=== PATIENT | female | born 1960 | race Caucasian/White ===

== ENCOUNTER 2016-10-01 09:49 | Emergency (ER) | payer BC ==
--- NOTE | 2016-10-01 12:07 | UC ---
Hand/Wrist HPI - HPI Summary HPI Summary: 55 yo female fell and injured her left hand yesterday right handed - History Of Current Complaint Chief Complaint: UCUpperExtremity Stated Complaint: HAND INJURY Time Seen by Provider: 10/01/16 11:57 Hx Obtained From: Patient Onset/Duration: Sudden Onset Severity Initially: Moderate Severity Currently: Mild Pain Intensity: 4 Pain Scale Used: 0-10 Numeric Character Of Pain: Aching Aggravating Factor(s): Movement Alleviating: Nothing Associated Signs And Symptoms: Positive: Swelling, Bruising Related History: Dominant Hand Right - Allergies/Home Medications Allergies/Adverse Reactions: Allergies Allergy/AdvReac Type Severity Reaction Status Date / Time STATINS Allergy MUSCLE Uncoded 10/01/16 10:48 TIGHTEN Home Medications: Home Medications Baclofen TAB* [Lioresal TAB*] 5 mg PO BID 10/01/16 [History Confirmed 10/01/16] Oxybutynin TAB* [Ditropan TAB*] 5 mg PO DAILY 10/01/16 [History Confirmed ] PMH/Surg Hx/FS Hx/Imm Hx Previously Healthy: Yes Endocrine History: Diabetes Cardiovascular History: Hypertension Neurological History: CVA - Surgical History Surgical History: Yes Surgery Procedure, Year, and Place: TOP TEETH EXTRACTION, [place]. 1979 & 1988 CSECTION X 2, [facility]. 1994 UMBILICAL HERNIA REPAIR, [facility]. 05/2015 LEFT LEG VARICOSE VEIN SURGERY, [facility] [place] - Social History Alcohol Use: None Substance Use Type: None Smoking Status (MU): Never Smoked Tobacco - Immunization History Most Recent Influenza Vaccination: Unknown Most Recent Tetanus Shot: Unknown Most Recent Pneumonia Vaccination: Never Review of Systems Constitutional: Negative Skin: Bruising Eyes: Negative ENT: Negative Respiratory: Negative Cardiovascular: Negative Gastrointestinal: Negative Genitourinary: Negative Motor: Negative Neurovascular: Negative Musculoskeletal: Negative Neurological: Negative Psychological: Negative All Other Systems Reviewed And Are Negative: Yes Physical Exam Triage Information Reviewed: Yes Appearance: Well-Appearing, No Pain Distress, Well-Nourished Vital Signs: Initial Vital Signs Temp 97.8 F 10/01/16 10:50 Pulse 74 10/01/16 10:50 Resp 16 10/01/16 10:50 BP 138/89 10/01/16 10:50 Pulse Ox 99 10/01/16 10:50 Eye Exam: Normal Procedures - Splinting Hand-Made Type: orthoglass Splint: 2" palmar splint Pre-Proc Neuro Vasc Exam: normal Post-Proc Neuro Vasc Exam: normal Hand/Wrist Course/Dx - Differential Dx/Diagnosis Provider Diagnoses: fracture base of left 4th/5th proximal phalangx ( nondisplaced) Discharge - Discharge Plan Condition: Stable Disposition: HOME Patient Education Materials: Finger Fracture (ED) Referrals: Andre Watts MD [Medical Doctor] - As Soon As Possible Additional Instructions: splint ice recheck with orthopedist
--- NOTE | 2016-10-01 12:40 | RAD ---
INDICATION: Left hand injury. TECHNIQUE: 4 views of the left hand were obtained. FINDINGS: The thumb and second finger are flexed in all views limiting the study. There are nondisplaced fractures through the medial corners of the bases of the proximal phalanges of the fourth and fifth fingers which appear to extend to the articular margins. IMPRESSION: NONDISPLACED INTRA-ARTICULAR FRACTURES AT THE BASES OF THE FOURTH AND FIFTH PROXIMAL PHALANGES.
[2016-10-01 13:18] VITALS: BP 125/72
== END 2016-10-01 13:09 | disposition home or self-care (01) ==
LOC: UCEAST 09:49
DX: S62.645A Nondisplaced fracture of proximal phalanx of left ring finger, initial encounter for closed fracture (principal); S62.647A Nondisplaced fracture of proximal phalanx of left little finger, initial encounter for closed fracture; W19.XXXA Unspecified fall, initial encounter; Y93.9 Activity, unspecified; Y92.9 Unspecified place or not applicable; Y99.9 Unspecified external cause status; E11.9 Type 2 diabetes mellitus without complications; I10 Essential (primary) hypertension; Z86.73 Personal history of transient ischemic attack (TIA), and cerebral infarction without residual deficits
CPT/HCPCS: 99212; G0463

== ENCOUNTER 2017-05-11 07:14 | Inpatient (IN) | payer BC ==
--- NOTE | 2017-04-30 20:27 | HP ---
HISTORY AND PHYSICAL: DATE OF ADMISSION/SURGERY: 05/11/17 SURGEON: Genet Hidalgo MD * (DICTATED BY ADITYA STAFFORD) PROCEDURE: Left total knee arthroplasty. CHIEF COMPLAINT: Left knee pain. HISTORY OF PRESENT ILLNESS: Sierra is a 56-year-old female with continued complaints of left knee pain. She has failed conservative management and elected to proceed with a left total knee arthroplasty which is scheduled for with Dr. Hidalgo. PAST MEDICAL HISTORY: Diabetes, high cholesterol, hypertension, depression, vitamin D deficiency, and stroke with residual left-sided weakness. PAST SURGICAL HISTORY: Hernia repair, x2, varicose vein surgery in the bilateral lower extremities. CURRENT MEDICATIONS: 1. Plavix 75 mg daily. 2. Aspirin 81 mg daily. 3. Oxybutynin 5 mg daily. 4. Multivitamin. 5. Citalopram. 6. Hydrobromide 20 mg daily. 7. Vitamin D. 8. CoQ10. 9. Magnesium. 10. Losartan potassium 100 mg daily. 11. Amlodipine 5 mg daily. 12. Metoprolol 100 mg daily. 13. Metformin 1000 mg. ALLERGIES: STATINS. FAMILY HISTORY: COPD, congestive heart failure, and diabetes. SOCIAL HISTORY: This is a 56-year-old female. She lives alone. She does not smoke, use drugs or alcohol. REVIEW OF SYSTEMS: A complete 14-point review of systems was reviewed with the patient, was positive for diabetes and history of stroke. She denies history of DVT, PE, hepatitis C, HIV, or anesthesia problems. PHYSICAL EXAMINATION GENERAL: She is well developed, well nourished, in no acute distress. VITAL SIGNS: She stands 5 feet 3 inches tall, weighs 245 pounds. Her blood pressure is 136/84. Her heart rate is 84. HEENT: Normocephalic, atraumatic. NECK: Supple. No palpable lymph nodes. PULMONARY: The lungs are clear to auscultation bilaterally. CARDIO: Regular rate and rhythm. Strong S1 and S2. ABDOMEN: Soft, nontender, nondistended. NEUROLOGIC: She is alert and oriented x3. Cranial nerves II through XII are intact. MUSCULOSKELETAL: Left lower extremity, the skin is intact. There are no open wounds or abrasions. Some moderate joint effusion of the left knee. Walks with antalgic type gait, favoring his left knee. Range of motion 10 to 120 degrees of flexion with varus deformity of 15 degrees. 2+ dorsalis pedis pulses. Intact sensation. The lower extremity muscle group strengths are intact at 5/5. ASSESSMENT AND PLAN: Sierra is a 56-year-old female with complaints of left knee pain secondary to end-stage osteoarthritis. She has failed conservative management and elected to proceed with a left total knee arthroplasty, which is scheduled for 05/11/[address] Hidalgo discussed the risks and benefits of the surgery at today's visit and all of her questions were answered. She was instructed to stop her aspirin and Plavix 7 days prior to the surgery. Postoperatively, she will be placed on Lovenox in the hospital. She will restart her Plavix at the time of discharge for DVT prophylaxis. A prescription for Percocet was sent to her pharmacy at today's visit. She will follow up with Dr. Hidalgo in 2 weeks after the surgery. ADITYA STAFFORD [id number]/CPS #: [id number] MTDD
[~2017-05-11 07:14] MED LIST: Buffered Lidocaine 0.9% SYRIN* 5 ML/SYR SYRINGE INTRADERM ONE
--- OUTSIDE RECORDS SUMMARY | 2017-05-11 07:19 | XMS REPORT ---
:1960 External Reference #:[id number] Author Organization [employer] Address [address] [address] Phone [phone] Care Team Providers Name Role Phone Jennifer Morejon PROJECT ADMIN Primary Care Physician Unavailable Payers Type Date Identification Numbers Payment Provider Subscriber Commercial Policy Number: [id number] [employer]ets Sierra Redi Group Name: Exchange Product PO Box PayID: [id number] [address]an [address] Medigap Part B Effective: 2014 Policy Number: BS Facets Sierra Reid [id number] Expires: 2015 Group Number: [id number] PO Box PayID: [id number] ED[address] Mahan [address] Problems Date Description Provider Status Onset: 01/29/2017 Right bundle branch block Josiane Velazquez M.D. Active Onset: 01/29/2017 Electrocardiogram abnormal Josiane Velazquez M.D. Active Onset: 01/29/2017 Preoperative cardiovascular examination Josiane Velazquez M.D. Active Onset: 11/27/2016 Localized, primary osteoarthritis Genet Hidalgo M.D. 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 Allergies, Adverse Reactions, Alerts Date Description Reaction Status Severity Comments 10/07/2016 Statin muscles tighten active Medications Medication Date Status Form Strength Qnty SIG Indications Ordering Provider Aspirin Ec Active Tablets DR 81mg 30tabs 1 by Andre 017 mouth MD Stefanie every day Losartan Active Tablets 100mg 1 by Unknown Potassium 000 mouth every day Amlodipine Active Tablets 5mg 1 by Unknown Besylate 000 mouth every day Clopidogrel Active Tablets 75mg 1 by Unknown Bisulfate 000 mouth every day Citalopram Active Tablets 20mg 1 by Unknown Hydrobromide 000 mouth every day Metformin HCL Active Tablets 1000mg 1 by Unknown 000 mouth once a day hs Oxybutynin Active Tablets 5mg 1 by Unknown Chloride 000 mouth every day Baclofen Active Tablets 10mg take 1 Unknown 000 tab every 12 hours Vitamin D Active Capsules 1000Unit 1 by Unknown (Cholecalcifero 000 mouth l) every day in summer and two in winter Co-Enzyme Q-10 Active Capsules 100mg 1 by Unknown 000 mouth every day Multi Vitamin Active Tablets 1 by Unknown 000 mouth every day Magnesium Active Tablets 400mg 1 by Unknown 000 mouth daily Metoprolol Active Tablets ER 100mg 1 by Unknown Succinate ER 000 24HR mouth every day Metoprolol Hx Tablets 100mg take 1 Unknown Tartrate 000 - tablet by mouth 017 twice a day Medications Administered in Office Medication Date Status Form Strength Qnty SIG Indications Ordering Provider Technetium TC Administered Injection Ica Nuclear 99M 017 Schedule Tetrofosmin, Per Unit Dose Up To 40 Millicuries Inj, Administered Injection Jay S. Regadenoson, 017 Yee, DO 0.1 MG FACC Technetium TC Administered Injection Jay S. 99M 017 Yee, DO Tetrofosmin, FACC Per Unit Dose Up To 40 Millicuries Vital Signs Date Vital Result Comment 04/28/2017 Height 63 inches 5'3" Weight 245.00 lb Heart Rate 84 /min BP Systolic 136 mmHg BP Diastolic 84 mmHg BMI (Body Mass Index) 43.4 kg/m2 03/11/2017 Height 63 inches 5'3" Weight 244.00 lb w/ shoes Heart Rate 80 /min reg BP Systolic Sitting 124 mmHg Rue, lg cuff BP Diastolic Sitting 84 mmHg Rue, lg cuff BP Systolic Standing 120 mmHg Rue BP Diastolic Standing 84 mmHg Rue Respiratory Rate 16 /min BMI (Body Mass Index) 43.2 kg/m2 Ejection Fraction 55-60% as of 01/14/17 echo 01/29/2017 Height 63 inches 5'3" Weight 242.00 lb w/ shoes Heart Rate 78 /min reg BP Systolic 126 mmHg Rue, lg cuff BP Diastolic 88 mmHg Rue, lg cuff BP Systolic Sitting 128 mmHg Lue, lg cuff BP Diastolic Sitting 78 mmHg Lue, lg cuff BP Systolic Standing 122 mmHg Lue BP Diastolic Standing 84 mmHg Lue Respiratory Rate 16 /min BMI (Body Mass Index) 42.9 kg/m2 Ejection Fraction 55-60% as of 01/14/17 echo 01/01/2017 Height 63 inches 5'3" Weight 241.00 lb Heart Rate 79 /min BP Systolic 123 mmHg BP Diastolic 67 mmHg Body Temperature 98.0 F BMI (Body Mass Index) 42.7 kg/m2 11/27/2016 Height 63 inches 5'3" Weight 240.00 lb Heart Rate 60 /min BP Systolic 115 mmHg BP Diastolic 68 mmHg Respiratory Rate 15 /min Body Temperature 97.4 F Pain Level 5 BMI (Body Mass Index) 42.5 kg/m2 11/04/2016 Height 63 inches 5'3" Weight 240.00 lb Heart Rate 76 /min BP Systolic 128 mmHg BP Diastolic 78 mmHg Respiratory Rate 18 /min Body Temperature 97.9 F Pain Level 0 BMI (Body Mass Index) 42.5 kg/m2 10/07/2016 Height 63 inches 5'3" Weight 240.00 lb BP Systolic 122 mmHg BP Diastolic 70 mmHg Body Temperature 97.2 F Pain Level 0 BMI (Body Mass Index) 42.5 kg/m2 Results Test Date Test Result H/L Range Note CBC No Diff 04/28/2017 White Blood Count 6.9 10^3/uL 3.5-10.8 Red Blood Count 4.42 10^6/uL 4.0-5.4 Hemoglobin 13.4 g/dL 12.0-16.0 Hematocrit 39 % 35-47 Mean Corpuscular Volume 88 fL 80-97 Mean Corpuscular Hemoglobin 30 pg 27-31 Mean Corpuscular HGB Conc 34 g/dL 31-36 Red Cell Distribution Width 14 % 10.5-15 Platelet Count 253 10^3/uL 150-450 Mean Platelet Volume 8 um3 7.4-10.4 Urinalysis Profile 04/28/2017 Urine Color Yellow Urine Appearance Cloudy Urine Specific Novi 1.017 1.010-1.030 Urine pH 7.0 5-9 Urine Urobilinogen Negative Negative Urine Ketones Negative Negative Urine Protein Negative Negative Urine Leukocytes Trace Negative Urine Blood Negative Negative Urine Nitrite Negative Negative Urine Bilirubin Negative Negative Urine Glucose Negative Negative Urine White Blood Cell 1+(6-10/hpf) Absent Urine Red Blood Cell Trace(0-2/hpf) Absent Urine Bacteria Absent Absent Urine Squamous Epithelial Cell Present Absent Comp Metabolic Panel 04/28/2017 Sodium 137 mmol/L 133-145 Potassium 4.2 mmol/L 3.5-5.0 Chloride 101 mmol/L 101-111 Co2 Carbon Dioxide 29 mmol/L 22-32 Anion Gap 7 mmol/L 2-11 Glucose 88 mg/dL 70-100 Blood Urea Nitrogen 13 mg/dL 6-24 Creatinine 0.63 mg/dL 0.51-0.95 BUN/Creatinine Ratio 20.6 High 8-20 Calcium 9.8 mg/dL 8.6-10.3 Total Protein 7.6 g/dL 6.4-8.9 Albumin 4.3 g/dL 3.2-5.2 Globulin 3.3 g/dL 2-4 Albumin/Globulin Ratio 1.3 1-3 Total Bilirubin 0.40 mg/dL 0.2-1.0 Alkaline Phosphatase 69 U/L 34-104 Alt 25 U/L 7-52 Ast 21 U/L 13-39 Egfr Non- 97.1 >60 Egfr 124.8 >60 1 Inr/Protime 04/28/2017 Inr 0.88 0.77-1.02 Laboratory test finding 04/28/2017 Partial Thrombo Time 32.0 seconds 26.0 -36.3 PTT Type & Screen 04/28/2017 Patient Blood Type O Negative Antibody Screen NEGATIVE Urine Culture And 04/28/2017 Urine Culture SEE RESULT BELOW 2 Sensitivities Urine Culture And 01/01/2017 Urine Culture SEE RESULT BELOW 3, 4 Sensitivities Type & Screen 01/01/2017 Patient Blood Type O Negative 3 Antibody Screen NEGATIVE 3 Comp Metabolic Panel 01/01/2017 Sodium 138 mmol/L 133-145 3 Potassium 4.2 mmol/L 3.5-5.0 3 Chloride 100 mmol/L Low 101-111 3 Co2 Carbon Dioxide 28 mmol/L 22-32 3 Anion Gap 10 mmol/L 2-11 3 Glucose 83 mg/dL 70-100 3 Blood Urea Nitrogen 15 mg/dL 6-24 3 Creatinine 0.62 mg/dL 0.51-0.95 3 BUN/Creatinine Ratio 24.2 High 8-20 3 Calcium 9.5 mg/dL 8.6-10.3 3 Total Protein 7.5 g/dL 6.4-8.9 3 Albumin 4.3 g/dL 3.2-5.2 3 Globulin 3.2 g/dL 2-4 3 Albumin/Globulin Ratio 1.3 1-3 3 Total Bilirubin 0.40 mg/dL 0.2-1.0 3 Alkaline Phosphatase 67 U/L 34-104 3 Alt 18 U/L 7-52 3 Ast 16 U/L 13-39 3 Egfr Non- 98.9 >60 3 Egfr 127.1 >60 3, 5 Urinalysis Profile 01/01/2017 Urine Color Yellow 3 Urine Appearance Cloudy 3 Urine Specific Novi 1.018 1.010-1.030 3 Urine pH 7.0 5-9 3 Urine Urobilinogen Negative Negative 3 Urine Ketones Negative Negative 3 Urine Protein Negative Negative 3 Urine Leukocytes Negative Negative 3 Urine Blood Negative Negative 3 Urine Nitrite Negative Negative 3 Urine Bilirubin Negative Negative 3 Urine Glucose Negative Negative 3 CBC No Diff 01/01/2017 White Blood Count 6.9 10^3/uL 3.5-10.8 3 Red Blood Count 4.49 10^6/uL 4.0-5.4 3 Hemoglobin 13.3 g/dL 12.0-16.0 3 Hematocrit 40 % 35-47 3 Mean Corpuscular Volume 89 fL 80-97 3 Mean Corpuscular Hemoglobin 30 pg 27-31 3 Mean Corpuscular HGB Conc 33 g/dL 31-36 3 Red Cell Distribution Width 14 % 10.5-15 3 Platelet Count 244 10^3/uL 150-450 3 Mean Platelet Volume 8 um3 7.4-10.4 3 Laboratory test finding 01/01/2017 Partial Thrombo 30.2 seconds 26.0- 36.3 3, 6 Time PTT Inr/Protime 01/01/2017 Inr 0.87 Low 0.89-1.11 3 1 Because ethnic data is not always readily available, this report includes an eGFR for both -Americans and non- Americans. The National Kidney Disease Education Program (NKDEP) does not endorse the use of the MDRD equation for patients that are not between the ages of 18 and 70, are , have extremes of body size, muscle mass, or nutritional status, or are non- or non-. According to the National Kidney Foundation, irrespective of diagnosis, the stage of the disease is based on the level of kidney function: Stage Description GFR(mL/min/1.73 m(2)) 1 Kidney damage with normal or decreased GFR 90 2 Kidney damage with mild decrease in GFR 60-89 3 Moderate decrease in GFR 30-59 4 Severe decrease in GFR 15-29 5 Kidney failure <15 (or dialysis) 2 SEE RESULT BELOW Name: SIERRA REID : [address]: Genet Hidalgo MD Acct: [id number] Unit: [id number] AGE: 56 Location: [facility] Re04/28/17 SEX: F Status: REG REF SPEC: [id number] SANDRA: 04/28/17-[address] [facility] [address]: Genet Hidalgo MD REQ: [id number] RECD: 04/28/17 STATUS: COMP _ SOURCE: URINE SPDESC: ORDERED: Urine Culture QUERIES: Urine Source: Clean Catch Procedure Result Reported Site Urine Culture Final 04/29/17- 0940 ML No growth of clinically significant organisms * ML - MAIN LAB ([facility]) . END OF REPORT * ML=Testing performed at Main Lab DEPARTMENT OF PATHOLOGY, [address] [place] [address] Tono Colvin M.D. Director [facility] # [id number] 3 01/07 4 SEE RESULT BELOW Name: SIERRA REID : [address]: Genet Hidalgo MD Acct: [id number] Unit: [id number] AGE: 56 Location: [facility] Re01/01/17 SEX: F Status: REG REF SPEC: [id number] SANDRA: 01/01/[address] [facility] [address]: Genet Hidalgo MD REQ: [id number] RECD: 01/01/17 STATUS: COMP OTHR DR: Jennifer Mooney Ma, MD _ SOURCE: URINE SPDESC: ORDERED: Urine Culture COMMENTS: JULISSA 01/07 QUERIES: Urine Source: Clean Catch Procedure Result Reported Site Urine Culture Final 01/02/17- 1236 ML No growth of clinically significant organisms * ML - MAIN LAB ([facility]) . END OF REPORT * ML=Testing performed at Main Lab DEPARTMENT OF PATHOLOGY, [address] [place] [address] Tono Colvin M.D. Director [facility] # [id number] 5 Because ethnic data is not always readily available, this report includes an eGFR for both -Americans and non- Americans. The National Kidney Disease Education Program (NKDEP) does not endorse the use of the MDRD equation for patients that are not between the ages of 18 and 70, are , have extremes of body size, muscle mass, or nutritional status, or are non- or non-. According to the National Kidney Foundation, irrespective of diagnosis, the stage of the disease is based on the level of kidney function: Stage Description GFR(mL/min/1.73 m(2)) 1 Kidney damage with normal or decreased GFR 90 2 Kidney damage with mild decrease in GFR 60-89 3 Moderate decrease in GFR 30-59 4 Severe decrease in GFR 15-29 5 Kidney failure <15 (or dialysis) 6 AA 01/07 Procedures Date CPT Code Description Status 02/09/2017 81461 Stress Test Completed 02/09/2017 95733 Myocardial Perfusion Imaging Tomographic (Spect) Completed Multiple Studies 01/29/2017 92366 EKG Tracing & Interpretation Completed 01/14/2017 76605 ECHO Transthoracic, Real-Time 2D With Doppler And Color Completed Flow 01/14/2017 73803 ECHO Transthoracic, Real-Time 2D With Doppler And Color Completed Flow 01/01/2017 63856 EKG, Interpretation Only Completed 12/04/2014 63696 Color Flow Doppler/Interp & Reprt Completed 12/04/2014 58403 Pulse Wave/Continuous-Interp.RPT Completed 12/04/2014 82915 Echocardiography, Transesophageal, Real Time W/Image 2D Completed W/W/O M-M 12/04/2014 15339 ECHO Transthorasic Realtime 2D W Doppler & Color Completed Flow Hosp Encounters Type Date Location Provider CPT E/M Dx Office Visit 03/11/2017 [facility] Josiane Velazquez M.D. 54627 Z01.810 4:00p Nuclear Medicine Pet Ct Technologist I45.19 I63.9 M17.0 E11.8 E78.5 I10 E66.9 Office Visit 01/29/2017 2:00p [facility] Josiane Velazquez M.D. [address]01.[address] Technologist R94.31 I63.9 R01.1 I45.10 M17.11 Office Visit 11/27/2016 10:00a [facility] Genet Hidalgo M.D. 79433 M25.562 Jose M25.561 M25.461 M25.462 M17.0 Office Visit 11/04/2016 2:00p [place] [address] S62.645D Of C.Joan S62.647D Office Visit 10/07/2016 1:15p [place] [address] S62.645A Of C.M.ALuis Antonio S62.647A Office Visit 12/04/2014 10:36a [facility] Marni Sosa, 34955 I63.9 M.D. Office Visit 12/04/2014 3:51p [facility], Shavonne Otero, 71779 434.91 Hospitalists M.DLuis Antonio 250.00 401.9 272.4 Office Visit 12/03/2014 10:35a [place] [address] G45.9 Office Visit 12/03/2014 3:50p [facility], Morteza Chávez, 86389 435.9 Hospitalists N.P. 250.00 401.9 Plan of Care Future Appointment(s):05/26/2017 9:45 am - Genet Hidalgo M.D. at [facility]05/11/2017 10:00 am - ADITYA Gonzales at [facility]05/11/2017 10:00 am - Joao Rosano, PA-C at [facility]05/11/2017 10:00 am - ADITYA Carmona at [facility].05/11/2017 10:00 am - Genet Hidalgo M.D. at [facility]04/28/2017 - Genet Hidalgo M.D.M17.12 Unilateral primary osteoarthritis, left kneeFollow up:Follow up: 10-14 days whjresQ47.11 Unilateral primary osteoarthritis, right kneeM25.562 Pain in left kneeM25.561 Pain in right kneeM25.461 Effusion, right kneeM25.462 Effusion, left knee
--- OUTSIDE RECORDS SUMMARY | 2017-05-11 07:20 | XMS REPORT ---
:1960 External Reference #:[id number] Author Organization 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 Unavailable Payers Type Date Identification Numbers Payment Provider Subscriber Commercial Effective: Policy Number: BCBS Essential Plan Sierra Sinclair 2016 [id number] PayID: [id number] [address] [address] [place] [address] Problems Date Description Provider Status Onset: 09/03/2013 Morbid obesity Christine Hernandez MD Active Onset: 09/03/2013 Essential hypertension Christine Hernandez MD Active Onset: 09/03/2013 Diabetes mellitus Christine Hernandez MD Active Onset: 09/03/2013 Pure hypercholesterolemia Christine Hernandez MD Active Onset: 09/03/2013 Osteoarthritis of knee Christine Hernandez MD Active Onset: 09/03/2013 Sciatica Christine Hernandez MD Active Onset: 09/20/2013 Gout Christine Hernandez MD Active Onset: 09/27/2013 Vitamin D deficiency Christine Hernandez MD Active Onset: 01/08/2015 Major depressive disorder Christine Hernandez MD Active Onset: 01/08/2015 Restless legs Christine Hernandez MD Active Onset: 02/27/2015 History of cerebrovascular accident Christine Hernandez MD Active Onset: 05/07/2016 Benign essential hypertension Active Family History Date Family Member(s) Problem(s) Comments Father COPD Father Congestive Heart Failure Mother Good Health First Brother Diabetes, Adult First Sister Good Health Paternal Grandfather due to COPD () Paternal Grandfather due to Congestive Heart Failure () Paternal Grandfather due to Suicide () Paternal Grandmother due to Old Age () Maternal Grandfather due to Diabetes () Maternal Grandmother due to DM () Maternal Grandmother due to Heart Disease () Social History Type Date Description Comments Marital Status Single 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 ETOH Use Rarely consumes wine Smoking Patient has never smoked Recreational Drug Use Denies Drug Use Daily Caffeine Consumes on average 2 cups of coffee per day Exercise Type/Frequency Diff Exercisinf D/T Knee Issues Sun Exposure minimum amount of sun exposure Sun Exposure Uses sunscreen Seat Belt/Car Seat always uses seat belt Recent Travel There has not been recent travel abroad Personal Habits Text Allergies, Adverse Reactions, Alerts Date Description Reaction Status Severity Comments 08/28/2013 NKDA active Medications Medication Date Status Form Strength Qnty SIG Indications Ordering Provider Bedside 03/24/ Active S/p stroke. I69.854 Jean-Pierre, Commode 2018 hemiplegia, Jennifer knee Susan RN MS replacement, [employer] severe osteoarthritis Clopidogrel 02/09/ Active Tablets 75mg 90tabs Take One Tablet I63.9 Jean-Pierre, Bisulfate 2017 By Mouth Every Jennifer Davis RN MS [employer] Z86.73 Oxybutynin 01/09/2016 Active Tablets 5mg 90tabs take one N39.3 Jean-Pierre, Chloride tablet by Jennifer Davis, mouth RN MS [employer] every day Metformin HCL 09/20/2015 Active Tablets 1000mg 180tabs Take E11.9 Jean-Pierre, One-Half Jennifer Davis, Tablet By RN MS [employer] Mouth Twice A Day Citalopram 05/31/2015 Active Tablets 20mg 90tabs Take One F33.0 Jean-Pierre, Hydrobromide Tablet By Jennifer Davis, Mouth RN MS [employer] Every Day F32.9 Losartan 05/31/2015 Active Tablets 100mg 90tabs Take One I10 Jean-Pierre, Potassium Tablet By Jennifer Davis, Mouth RN MS [employer] Every Day Amlodipine 05/31/2015 Active Tablets 5mg 90tabs Take One I10 Jean-Pierre, Besylate Tablet By Jennifer Davis Mouth RN MS [employer] Every Day Aspir-81 12/06/[address] 81mg 1 by mouth Z86.73 Christine Hernandez every day MD Salome I63.9 Vitamin D 09/27/2013 Active Tablets 1000Unit 90tabs 1 by mouth E55.9 Jean-Pierre, everyday in summer and C, RN MS daily in [facility] winter Metoprolol 09/27/2013 Active Tablets 100mg 90tabs Take One I10 Jean-Pierre, Succinate ER ER 24HR Tablet By [facility] Mouth Every Susan, RN MS Day [facility] Ultra Co Q10 Active Unknown Supplement Baclofen Active Tablets 10mg 1 by mouth I69.85 Unknown twice a day [address] Littlejohn 400 Active Tablets 400(241.3m one tab bid Unknown g) mg for headache prevention Glucosamine 01/09/2016 - Hx Tablets OTC 2 by mouth [place], Chondroitin 11/11/2016 every [facility] Advanced OTC morning C, RN MS [facility] Ropinirole HCL 02/04/2015 - Hx Tablets 0.5mg 90tabs 1 qHS 1-3 G25.81 David, 09/20/2015 hrs before [facility] bedtime prlois Mcmahon MD Physical 01/22/2015 - Hx Dx: strokes, David, Therapy 05/31/2015 paresis Christine Mcmahon MD Hydrocodone-Ac 01/17/2015 - Hx Tablets 5-325mg 30tabs 1-2 by mouth David etaminophen 05/31/2015 four times a Christine day as MD Salome needed Livalo 01/15/2015 - Hx Tablets 1mg 30tabs 1 tabs every Jean-Pierre, 09/20/2015 day In [facility] Evening Susan, RN MS [facility] Citalopram 01/08/2015 - Hx Tablets 10mg 90tabs 1 everyday F33.0 David Hydrobromide 05/31/2015 Christine Mcmahon MD F32.9 Plavix 01/08/2015 - Hx Tablets 75mg 90tabs 1 by mouth I63.9 Jean-Pierre Jennifer 02/09/2017 every day Susan RN MS [facility] Z86.73 Ropinirole HCL 01/08/2015 - Hx Tablets 0.25mg 180tabs 2 every night David, 02/04/2015 at bedtime Christine Mcmahon MD Zetia 01/08/2015 - Hx Tablets 10mg 90tabs take 1 tablet E78. David, 02/27/2015 by mouth every 0 Christine night at MD Salome bedtime Sick Note 12/06/2014 - Hx SHould be off David, 01/08/2015 Dec 10 to Dec Christine 2014 MD Salome inclusively Pravastatin 12/06/2014 - Hx Tablets 20mg 90tabs 1/2- 1 every David, Sodium 01/08/2015 night at [facility] bedtime - 1st MD Salome choice Crestor 12/06/2014 - Hx Tablets 5mg 90tabs take 1/2 tablet E78. David, 05/31/2015 by mouth at 0 Christine bedtime may MD Salome increase to 1 tablet at bedtime as tolerated Phentermine HCL 01/30/2014 - Hx Tablets 37.5mg 30tabs 1 everyday 278. David, 12/10/2014 00 Christine Mcmahon MD 278.01 Metformin HCL 10/31/2013 - Hx Tablets 1000mg 180tabs 1/2 by E11.9 Christine Hernandez 02/27/2015 mouth twice MD Salome a day Losartan 09/27/2013 - Hx Tablets 50mg 180tabs 1 -2 by I10 Christine Hernandez Potassium 05/31/2015 mouth every MD Salome day M10.9 Metformin HCL 09/27/2013 - Hx Tablets ER 1000mg 180tabs start as 1/2 250.00 David ER (Osm) 10/31/2013 24HR tab qday, Christine then increase MD Salome by 1/2 tab qweek up to 2 tabs qday as tolerated Prednisone 09/20/2013 - Hx Tablets 10mg 30tabs 3 tab bid on M10.9 David, 05/31/2015 day 1, then 3 Christine tabs daily MD Salome until gout flare resolves + extra 2 days To fill only with gout flare pt will call Lisinopril 08/28/2013 - Hx Tablets 10mg 90tabs 1 by mouth David, 09/27/2013 every day Christine Mcmahon MD Immunizations CPT Code Status Date Vaccine Lot # [id number] Given 09/07/2012 Tdap (Adacel) Ages 7 And Above Only [id number] Refused 03/24/2017 Influenza Vac, 3 Yrs & Older, Quadrivalent, [place] Use [id number] Refused 01/09/2016 Influenza Vac, 3 Yrs & Older, Quadrivalent, Split, Im Use Vital Signs Date Vital Result Comment 04/26/2017 Weight 243.00 lb Heart Rate 76 /min BP Systolic 132 mmHg BP Diastolic 80 mmHg Height 63 inches 5'3" BMI (Body Mass Index) 43.0 kg/m2 Urine Dipstick - Blood NEGATIVE Urine Dipstick - Protein NEGATIVE Urine Dipstick - Glucose NEGATIVE Urine Dipstick - Leukocytes 1+ 03/24/2017 Weight 244.25 lb Heart Rate 68 /min BP Systolic 128 mmHg BP Diastolic 82 mmHg Height 63 inches 5'3" BMI (Body Mass Index) 43.3 kg/m2 11/11/2016 Weight 240.50 lb Heart Rate 74 /min BP Systolic 137 mmHg BP Diastolic 82 mmHg Height 63 inches 5'3" BMI (Body Mass Index) 42.6 kg/m2 05/07/2016 Weight 245.25 lb Heart Rate 75 /min BP Systolic 128 mmHg BP Diastolic 82 mmHg Height 63 inches 5'3" BMI (Body Mass Index) 43.4 kg/m2 01/09/2016 Weight 244.12 lb Heart Rate 73 /min BP Systolic 129 mmHg BP Diastolic 80 mmHg Height 63 inches 5'3" BMI (Body Mass Index) 43.2 kg/m2 09/20/2015 Weight 238.50 lb Heart Rate 74 /min BP Systolic 127 mmHg BP Diastolic 81 mmHg Height 63 inches 5'3" BMI (Body Mass Index) 42.2 kg/m2 05/31/2015 Weight 231.25 lb BP Systolic 169 mmHg BP Diastolic 91 mmHg BP Systolic Recheck 163 mmHg BP Diastolic Recheck 97 mmHg Height 63 inches 5'3" BMI (Body Mass Index) 41.0 kg/m2 02/27/2015 Weight 210.00 lb Heart Rate 77 /min BP Systolic 143 mmHg BP Diastolic 85 mmHg Height 63 inches 5'3" BMI (Body Mass Index) 37.2 kg/m2 01/08/2015 Weight 200.00 lb Heart Rate 74 /min BP Systolic 160 mmHg BP Diastolic 88 mmHg BP Systolic Recheck 148 mmHg BP Diastolic Recheck 91 mmHg Height 63 inches 5'3" BMI (Body Mass Index) 35.4 kg/m2 12/06/2014 Weight 202.38 lb Heart Rate 79 /min BP Systolic 146 mmHg BP Diastolic 93 mmHg BP Systolic Recheck 150 mmHg BP Diastolic Recheck 94 mmHg Height 63 inches 5'3" BMI (Body Mass Index) 35.8 kg/m2 11/28/2014 Weight 206.50 lb Heart Rate 79 /min BP Systolic 135 mmHg BP Diastolic 79 mmHg Height 63 inches 5'3" BMI (Body Mass Index) 36.6 kg/m2 08/14/2014 Weight 214.00 lb Heart Rate 76 /min BP Systolic 137 mmHg BP Diastolic 80 mmHg Height 63 inches 5'3" BMI (Body Mass Index) 37.9 kg/m2 05/15/2014 Weight 223.50 lb Heart Rate 85 /min BP Systolic 143 mmHg BP Diastolic 83 mmHg BP Systolic Recheck 125 mmHg BP Diastolic Recheck 79 mmHg Height 63 inches 5'3" BMI (Body Mass Index) 39.6 kg/m2 01/30/2014 Weight 248.00 lb Heart Rate 80 /min BP Systolic 181 mmHg LEFT arm BP Diastolic 98 mmHg LEFT arm BP Systolic Recheck 178 mmHg RIGHT arm BP Diastolic Recheck 102 mmHg RIGHT arm Height 63 inches 5'3" BMI (Body Mass Index) 43.9 kg/m2 10/31/2013 Weight 249.00 lb Heart Rate 84 /min BP Systolic 176 mmHg BP Diastolic 100 mmHg Height 63 inches 5'3" BMI (Body Mass Index) 44.1 kg/m2 09/26/2013 Weight 248.00 lb Heart Rate 99 /min BP Systolic 155 mmHg BP Diastolic 91 mmHg BP Systolic Recheck 157 mmHg BP Diastolic Recheck 90 mmHg Height 64.5 inches 5'4.50" BMI (Body Mass Index) 41.9 kg/m2 09/19/2013 Weight 250.00 lb Heart Rate 109 /min BP Systolic 156 mmHg LEFT BP Diastolic 92 mmHg LEFT BP Systolic Recheck 173 mmHg RIGHT BP Diastolic Recheck 97 mmHg RIGHT Height 64.5 inches 5'4.50" BMI (Body Mass Index) 42.2 kg/m2 08/28/2013 Weight 253.00 lb Heart Rate 95 /min BP Systolic 189 mmHg RIGHT BP Diastolic 116 mmHg RIGHT BP Systolic Recheck 191 mmHg LEFT BP Diastolic Recheck 112 mmHg LEFT Height 64.5 inches 5'4.50" BMI (Body Mass Index) 42.8 kg/m2 Results Test Date Test Result H/L Range Note Hemoglobin A1c 03/24/2017 Hemoglobin A1c 6.5 % High 4.1-5.9 Estimated Average Glucose Calc 140 mg/dL 71-140 Lipid 03/24/2017 Cholesterol 229 mg/dL High 50-199 Triglycerides 216 mg/dL High 30-200 HDL 42 mg/dL 35-85 1 Chol/ HDL Ratio 5.5 ratio 3.7-5.6 VLDL 43 mg/dL High 2-29 LDL (Calc) 144 mg/dL High 20-99 2 Comprehensive Met Panel-[facility] 03/24/2017 Sodium 142 mmol/L 135-146 3 Potassium 3.9 mmol/L 3.5-5.2 Chloride# 101 mmol/L 97-110 4 Carbon Dioxide 28 mmol/L 24-34 Glucose 85 mg/dL 70-105 Creatinine 0.7 mg/dL 0.5-1.4 Calcium 10.0 mg/dL 8.5-10.2 Total Protein 7.6 g/dL 6.0-8.0 Albumin 4.6 g/dL 3.6-4.9 Globulin 3.0 g/dL 2.0-3.5 A/G Ratio 1.5 Ratio 1.0-2.2 Total Bilirubin 0.6 mg/dL 0.1-1.3 Alkaline Phosphatase 70 U/L 24-140 Alt 28 U/L 3-42 Ast 26 U/L 8- Lucille Egfr >60 >60 5 Non Lucille Egfr >60 >60 6 Anion Gap 13 mmol/L 7-16 7 BUN 11 mg/dL 6-26 Laboratory test 03/24/2017 Microalbumin, Random 10.8 ug/ml 0.0-20.0 finding Urine Hemoglobin A1c 11/11/2016 Hemoglobin A1c 6.6 % High 4.1-5.9 Estimated Average Glucose Calc 143 High 71-140 Laboratory test finding 11/11/2016 Vit D25oh 45 ng/mL 31-100 Comprehensive Met Panel-[facility] 11/11/2016 Sodium 139 mmol/L 135-146 8 Potassium 4.3 mmol/L 3.5-5.2 Chloride# 103 mmol/L 97-110 9 Carbon Dioxide 27 mmol/L 24-34 Glucose 82 mg/dL 70-105 BUN 11 mg/dL 6-26 Creatinine 0.6 mg/dL 0.5-1.4 Calcium 9.7 mg/dL 8.5-10.2 Total Protein 7.3 g/dL 6.0-8.0 Albumin 4.3 g/dL 3.6-4.9 Globulin 3.0 g/dL 2.0-3.5 A/G Ratio 1.4 Ratio 1.0-2.2 Total Bilirubin 0.6 mg/dL 0.1-1.3 Alkaline Phosphatase 70 U/L 24-140 Alt 19 U/L 3-42 Ast 18 U/L 8-42 Lucille Egfr >60 >60 10 Non Lucille Egfr >60 >60 11 Anion Gap 9 mmol/L 7-16 12 Lipid 11/11/2016 Cholesterol 212 mg/dL High 50-199 Triglycerides 205 mg/dL High 30-200 HDL 37 mg/dL 35-85 13 Chol/ HDL Ratio 5.7 ratio High 3.7-5.6 VLDL 41 mg/dL High 2-29 LDL (Calc) 134 mg/dL High 20-99 14 Laboratory test finding 05/07/2016 Hemoglobin A1c 6.9 % High 4.1-5.9 15 Comprehensive Metabolic (CMP) 05/07/2016 Sodium 140 mmol/L 134-142 15 Potassium 4.5 mmol/L 3.5-5.2 15 Chloride 103 mmol/L 97-109 15 Carbon Dioxide 27 mmol/L 24-34 15 Glucose 95 mg/dL 70-105 15 BUN 12 mg/dL 6-26 15 Creatinine 0.6 mg/dL 0.5-1.4 15 Calcium 9.6 mg/dL 8.5-10.2 15 Total Protein 7.4 g/dL 6.0-8.0 15 Albumin 4.2 g/dL 3.6-4.9 15 Globulin 3.2 g/dL 2.0-3.5 15 A/G Ratio 1.3 Ratio 1.0-2.2 15 Total Bilirubin 0.5 mg/dL 0.1-1.3 15 Alkaline Phosphatase 66 U/L 24-140 15 Alt 22 U/L 3-42 15 Ast 20 U/L 8-42 15 Anion Gap 15 mmol/L High 6-14 15 Lucille Egfr >60 >60 15, 16 Non Lucille Egfr >60 >60 15, 17 Laboratory test finding 05/07/2016 Hepatitis C Virus NONREACTIVE Nonreactive 15 Antibody Vit D,25 Hydroxy 33 ng/mL 31-100 15 CBC With Auto Diff 01/09/2016 WBC 7.4 K/uL 4.1-11.0 18 RBC 4.80 M/uL 4.00-5.40 18 Hemoglobin 14.4 gm/dL 12.0-16.0 18 Hematocrit 43.1 % 36.0-47.0 18 MCV 89.7 fL 80.0-97.0 18 MCH 30.0 pg 27.0-32.0 18 MCHC 33.4 g/dL 32.0-36.0 18 RDW 13.5 % 11.5-14.5 18 PLT Count 237 K/ul 140-400 18 Neutrophil 61.8 % 35.0-75.0 18 Lymphocyte 26.8 % 16.0-52.0 18 Monocyte 7.9 % 2.0-10.0 18 Eosinophil 3.0 % 0.0-5.0 18 Basophil 0.5 % 0.0-4.0 18 Abs Neutrophils 4.5 K/uL 2.1-8.0 18 Abs Lymphocytes 2.0 K/uL 0.8-5.5 18 Abs Monocytes 0.6 K/uL 0.1-1.0 18 Abs Eosinophils 0.2 K/uL 0.0-0.5 18 Abs Basophils 0.0 K/uL 0.0-0.3 18 Laboratory test finding 01/09/2016 Hemoglobin A1c 6.4 % High 4.1-5.9 18 Microalbumin, Random Urine 14.6 ug/ml 0.0-20.0 18 TSH 1.01 uIU/mL 0.35-4.94 18 Comprehensive Metabolic (CMP) 01/09/2016 Sodium 136 mmol/L 134-142 18 Potassium 4.6 mmol/L 3.5-5.2 18 Chloride 102 mmol/L 97-109 18 Carbon Dioxide 28 mmol/L 24-34 18 Glucose 110 mg/dL High 70-105 18 BUN 14 mg/dL 6-26 18 Creatinine 0.7 mg/dL 0.5-1.4 18 Calcium 10.1 mg/dL 8.5-10.2 18 Total Protein 7.6 g/dL 6.0-8.0 18 Albumin 4.4 g/dL 3.6-4.9 18 Globulin 3.2 g/dL 2.0-3.5 18 A/G Ratio 1.4 Ratio 1.0-2.2 18 Total Bilirubin 0.5 mg/dL 0.1-1.3 18 Alkaline Phosphatase 67 U/L 24-140 18 Alt 22 U/L 3-42 18 Ast 19 U/L 8-42 18 Anion Gap 11 mmol/L 6-14 18 Lucille Egfr >60 >60 18, 19 Non Lucille Egfr >60 >60 18, 20 Lipid 09/20/2015 Cholesterol 219 mg/dL High 50-199 Triglycerides 199 mg/dL 30-200 HDL 33 mg/dL Low 35-85 21 Chol/ HDL Ratio 6.6 ratio High 3.7-5.6 VLDL 40 mg/dL High 2-29 LDL (Calc) 146 mg/dL High 20-99 22 Laboratory test finding 09/20/2015 Hemoglobin A1c 6.6 % High 4.1-5.9 Comprehensive Metabolic (CMP) 09/20/2015 Sodium 136 mmol/L 134-142 Potassium 4.4 mmol/L 3.5-5.2 Chloride 101 mmol/L 97-109 Carbon Dioxide 28 mmol/L 24-34 Glucose 99 mg/dL 70-105 BUN 13 mg/dL 6-26 Creatinine 0.6 mg/dL 0.5-1.4 Calcium 9.7 mg/dL 8.5-10.2 Total Protein 7.1 g/dL 6.0-8.0 Albumin 4.1 g/dL 3.6-4.9 Globulin 3.0 g/dL 2.0-3.5 A/G Ratio 1.4 Ratio 1.0-2.2 Total Bilirubin 0.6 mg/dL 0.1-1.3 Alkaline Phosphatase 59 U/L 24-140 Alt 16 U/L 3-42 Ast 17 U/L 8-42 Anion Gap 11 mmol/L 6-14 Lucille Egfr >60 >60 23 Non Lucille Egfr >60 >60 24 Laboratory test finding 05/31/2015 Hemoglobin A1c 6.5 % High 4.1-5.9 25 CBC With Auto Diff 05/31/2015 WBC 7.3 K/uL 4.1-11.0 25 RBC 4.79 M/uL 4.00-5.40 25 Hemoglobin 14.3 gm/dL 12.0-16.0 25 Hematocrit 43.4 % 36.0-47.0 25 MCV 90.6 fL 80.0-97.0 25 MCH 29.8 pg 27.0-32.0 25 MCHC 32.9 g/dL 32.0-36.0 25 RDW 13.6 % 11.5-14.5 25 PLT Count 192 K/ul 140-400 25 Neutrophil 62.7 % 35.0-75.0 25 Lymphocyte 27.1 % 16.0-52.0 25 Monocyte 7.2 % 2.0-10.0 25 Eosinophil 2.4 % 0.0-5.0 25 Basophil 0.6 % 0.0-4.0 25 Abs Neutrophils 4.6 K/uL 2.1-8.0 25 Abs Lymphocytes 2.0 K/uL 0.8-5.5 25 Abmon 0.5 K/uL 0.1-1.0 25 Abs Eosinophils 0.2 K/uL 0.0-0.5 25 Abs Basophils 0.0 K/uL 0.0-0.3 25 Laboratory test finding 05/31/2015 TSH 1.38 uIU/mL 0.35-4.94 25 Comprehensive Metabolic (CMP) 05/31/2015 Sodium 136 mmol/L 134-142 25 Potassium 4.5 mmol/L 3.5-5.2 25 Chloride 102 mmol/L 97-109 25 Carbon Dioxide 29 mmol/L 24-34 25 Glucose 94 mg/dL 70-105 25 BUN 14 mg/dL 6-26 25 Creatinine 0.6 mg/dL 0.5-1.4 25 Calcium 9.4 mg/dL 8.5-10.2 25 Total Protein 7.5 g/dL 6.0-8.0 25 Albumin 4.3 g/dL 3.6-4.9 25 Globulin 3.2 g/dL 2.0-3.5 25 A/G Ratio 1.3 Ratio 1.0-2.2 25 Total Bilirubin 0.5 mg/dL 0.1-1.3 25 Alkaline Phosphatase 68 U/L 24-140 25 Alt 15 U/L 3-42 25 Ast 15 U/L 8-42 25 Anion Gap 10 mmol/L 6-14 25 Lucille Egfr >60 >60 25, 26 Non Lucille Egfr >60 >60 25, 27 CBC With Auto Diff 02/27/2015 WBC 4.7 K/uL 4.1-11.0 RBC 4.48 M/uL 4.00-5.40 Hemoglobin 13.5 gm/dL 12.0-16.0 Hematocrit 41.3 % 36.0-47.0 MCV 92.2 fL 80.0-97.0 MCH 30.1 pg 27.0-32.0 MCHC 32.6 g/dL 32.0-36.0 RDW 13.3 % 11.5-14.5 PLT Count 180 K/ul 140-400 Neutrophil 55.7 % 35.0-75.0 Lymphocyte 33.7 % 16.0-52.0 Monocyte 7.3 % 2.0-10.0 Eosinophil 2.7 % 0.0-5.0 Basophil 0.6 % 0.0-4.0 Abs Neutrophils 2.6 K/uL 2.1-8.0 Abs Lymphocytes 1.6 K/uL 0.8-5.5 Abmon 0.3 K/uL 0.1-1.0 Abs Eosinophils 0.1 K/uL 0.0-0.5 Abs Basophils 0.0 K/uL 0.0-0.3 Comprehensive Metabolic (CMP) 02/27/2015 Sodium 138 mmol/L 134-142 Potassium 4.5 mmol/L 3.5-5.2 Chloride 104 mmol/L 97-109 Carbon Dioxide 31 mmol/L 24-34 Glucose 98 mg/dL 70-105 BUN 14 mg/dL 6-26 Creatinine 0.5 mg/dL 0.5-1.4 Calcium 9.3 mg/dL 8.5-10.2 Total Protein 6.9 g/dL 6.0-8.0 Albumin 4.0 g/dL 3.6-4.9 Globulin 2.9 g/dL 2.0-3.5 A/G Ratio 1.4 Ratio 1.0-2.2 Total Bilirubin 0.5 mg/dL 0.1-1.3 Alkaline Phosphatase 58 U/L 24-140 Alt 14 U/L 3-42 Ast 15 U/L 8-42 Anion Gap 8 mmol/L 6-14 Lucille Egfr >60 >60 28 Non Lucille Egfr >60 >60 29 Laboratory test finding 02/27/2015 Hemoglobin A1c 5.9 % 4.1-5.9 Uric Acid 6.3 mg/dL 2.6-7.6 Vit D,25 Hydroxy 39 ng/mL 31-100 Lipid 02/27/2015 Cholesterol 186 mg/dL 50-199 Triglycerides 171 mg/dL 30-200 HDL 36 mg/dL 35-85 30 Chol/ HDL Ratio 5.2 ratio 3.7-5.6 VLDL 34 mg/dL High 2-29 LDL (Calc) 116 mg/dL High 20-99 31 Laboratory test finding 02/27/2015 Magnesium 1.8 mg/dL 1.5-2.7 CBC With Auto Diff 11/28/2014 WBC 5.7 K/uL 4.1-11.0 32 RBC 4.42 M/uL 4.00-5.40 32 Hemoglobin 13.1 gm/dL 12.0-16.0 32 Hematocrit 40.1 % 36.0-47.0 32 MCV 90.7 fL 80.0-97.0 32 MCH 29.8 pg 27.0-32.0 32 MCHC 32.8 g/dL 32.0-36.0 32 RDW 13.3 % 11.5-14.5 32 PLT Count 178 K/ul 140-400 32 Neutrophil 51.3 % 35.0-75.0 32 Lymphocyte 38.6 % 16.0-52.0 32 Monocyte 7.0 % 2.0-10.0 32 Eosinophil 2.3 % 0.0-5.0 32 Basophil 0.8 % 0.0-4.0 32 Abs Neutrophils 2.9 K/uL 2.1-8.0 32 Abs Lymphocytes 2.2 K/uL 0.8-5.5 32 Abmon 0.4 K/uL 0.1-1.0 32 Abs Eosinophils 0.1 K/uL 0.0-0.5 32 Abs Basophils 0.0 K/uL 0.0-0.3 32 Comprehensive Metabolic (CMP) 11/28/2014 Sodium 135 mmol/L 134-142 32 Potassium 4.4 mmol/L 3.5-5.2 32 Chloride 103 mmol/L 97-109 32 Carbon Dioxide 27 mmol/L 24-34 32 Glucose 102 mg/dL 70-105 32 BUN 15 mg/dL 6-26 32 Creatinine 0.7 mg/dL 0.5-1.4 32 Calcium 9.4 mg/dL 8.5-10.2 32 Total Protein 6.8 g/dL 6.0-8.0 32 Albumin 4.1 g/dL 3.6-4.9 32 Globulin 2.7 g/dL 2.0-3.5 32 A/G Ratio 1.5 Ratio 1.0-2.2 32 Total Bilirubin 0.5 mg/dL 0.1-1.3 32 Alkaline Phosphatase 59 U/L 24-140 32 Alt 13 U/L 3-42 32 Ast 13 U/L 8-42 32 Anion Gap 9 mmol/L 6-14 32 Lucille Egfr >60 >60 32, 33 Non Lucille Egfr >60 >60 32, 34 Lipid 11/28/2014 Cholesterol 188 mg/dL 50-199 32 Triglycerides 128 mg/dL 30-200 32 HDL 37 mg/dL 35-85 32, 35 Chol/ HDL Ratio 5.1 ratio 3.7-5.6 32 VLDL 26 mg/dL 2-29 32 LDL (Calc) 125 mg/dL High 20-99 32, 36 Laboratory test finding 11/28/2014 Hemoglobin A1c 6.3 % High 4.1-5.9 32 Uric Acid 6.6 mg/dL 2.6-7.6 32 Vit D,25 Hydroxy 49 ng/mL 31-100 32 CBC With Auto Diff 08/14/2014 WBC 6.2 K/uL 4.1-11.0 37 RBC 4.65 M/uL 4.00-5.40 37 Hemoglobin 14.2 gm/dL 12.0-16.0 37 Hematocrit 42.1 % 36.0-47.0 37 MCV 90.6 fL 80.0-97.0 37 MCH 30.5 pg 27.0-32.0 37 MCHC 33.7 g/dL 32.0-36.0 37 RDW 13.2 % 11.5-14.5 37 PLT Count 180 K/ul 140-400 37 Neutrophil 57.2 % 35.0-75.0 37 Lymphocyte 33.9 % 16.0-52.0 37 Monocyte 5.2 % 2.0-10.0 37 Eosinophil 3.0 % 0.0-5.0 37 Basophil 0.7 % 0.0-4.0 37 Abs Neutrophils 3.5 K/uL 2.1-8.0 37 Abs Lymphocytes 2.1 K/uL 0.8-5.5 37 Abmon 0.3 K/uL 0.1-1.0 37 Abs Eosinophils 0.2 K/uL 0.0-0.5 37 Abs Basophils 0.0 K/uL 0.0-0.3 37 Comprehensive Metabolic (CMP) 08/14/2014 Sodium 137 mmol/L 134-142 37 Potassium 4.0 mmol/L 3.5-5.2 37 Chloride 101 mmol/L 97-109 37 Carbon Dioxide 25 mmol/L 24-34 37 Glucose 102 mg/dL 70-105 37 BUN 12 mg/dL 6-26 37 Creatinine 0.6 mg/dL 0.5-1.4 37 Calcium 9.3 mg/dL 8.5-10.2 37 Total Protein 7.3 g/dL 6.0-8.0 37 Albumin 4.3 g/dL 3.6-4.9 37 Globulin 3.0 g/dL 2.0-3.5 37 A/G Ratio 1.4 Ratio 1.0-2.2 37 Total Bilirubin 0.5 mg/dL 0.1-1.3 37 Alkaline Phosphatase 57 U/L 24-140 37 Alt 18 U/L 3-42 37 Ast 17 U/L 8-42 37 Anion Gap 15 mmol/L High 6-14 37 Lucille Egfr >60 >60 37, 38 Non Lucille Egfr >60 >60 37, 39 Lipid 08/14/2014 Cholesterol 181 mg/dL 50-199 37 Triglycerides 222 mg/dL High 30-200 37 HDL 37 mg/dL 35-85 37, 40 Chol/ HDL Ratio 4.9 ratio 3.7-5.6 37 VLDL 44 mg/dL High 2-29 37 LDL (Calc) 100 mg/dL High 20-99 37, 41 Laboratory test finding 08/14/2014 Hemoglobin A1c 6.4 % High 4.1-5.9 37 Uric Acid 6.9 mg/dL 2.6-7.6 37 Microalb/Creat Panel 08/14/2014 Creatinine, Urine 149.6 mg/dL 37 Microalb/Creat Urine 23.99 ug/mgCreat 0.00-30.00 37 Microalbumin 35.9 ug/ml High 0.0-20.0 37 Laboratory test finding 08/14/2014 TSH 1.18 uIU/mL 0.35-4.94 37 Vitamin B12 298 pg/mL 180-914 37 Mary Panel -RL 05/17/2014 Aline-1 Igg AB @ NEGATIVE INDEX (Neg) MARK[employer]ING [employer]IST Igg AB @ NEGATIVE INDEX (Neg) Scleroderma Igg AB @ NEGATIVE INDEX (Neg) Muir Igg AB @ NEGATIVE INDEX (Neg) Ssa Igg AB @ NEGATIVE INDEX (Neg) SSB Igg AB @ NEGATIVE INDEX (Neg) 42 Comprehensive Metabolic (CMP) 05/15/2014 Sodium 136 mmol/L 134-142 43 Potassium 4.8 mmol/L 3.5-5.2 43 Chloride 100 mmol/L 97-109 43 Carbon Dioxide 30 mmol/L 24-34 43 Glucose 107 mg/dL High 70-105 43 BUN 14 mg/dL 6-26 43 Creatinine 0.7 mg/dL 0.5-1.4 43 Calcium 9.5 mg/dL 8.5-10.2 43 Total Protein 7.1 g/dL 6.0-8.0 43 Albumin 4.3 g/dL 3.6-4.9 43 Globulin 2.8 g/dL 2.0-3.5 43 A/G Ratio 1.5 Ratio 1.0-2.2 43 Total Bilirubin 0.5 mg/dL 0.1-1.3 43 Alkaline Phosphatase 56 U/L 24-140 43 Alt 18 U/L 3-42 43 Ast 15 U/L 8-42 43 Anion Gap 11 mmol/L 6-14 43 Lucille Egfr >60 >60 43, 44 Non Lucille Egfr >60 >60 43, 45 Lipid 05/15/2014 Cholesterol 181 mg/dL 50-199 43 Triglycerides 144 mg/dL 30-200 43 HDL 37 mg/dL 35-85 43, 46 Chol/ HDL Ratio 4.9 ratio 3.7-5.6 43 VLDL 29 mg/dL 2-29 43 LDL (Calc) 115 mg/dL High 20-99 43, 47 Laboratory test finding 05/15/2014 Hemoglobin A1c 6.5 % High 4.1-5.9 43 Vit D,25 Hydroxy 49 ng/mL 31-100 43 Uric Acid 7.2 mg/dL 2.6-7.6 43 Ivette Screen Pos Neg 43, 48 Esr 7 mm/hr 0-20 43 Rheumatoid Factor <10.0 IU/mL 0.0-10.0 43 CBC With Auto Diff 05/15/2014 WBC 6.8 K/uL 4.1-11.0 43 RBC 4.62 M/uL 4.00-5.40 43 Hemoglobin 13.9 gm/dL 12.0-16.0 43 Hematocrit 42.0 % 36.0-47.0 43 MCV 91.1 fL 80.0-97.0 43 MCH 30.1 pg 27.0-32.0 43 MCHC 33.0 g/dL 32.0-36.0 43 RDW 13.8 % 11.5-14.5 43 PLT Count 177 K/ul 140-400 43 Neutrophil 54.4 % 35.0-75.0 43 Lymphocyte 35.5 % 16.0-52.0 43 Monocyte 6.8 % 2.0-10.0 43 Eosinophil 2.7 % 0.0-5.0 43 Basophil 0.6 % 0.0-4.0 43 Abs Neutrophils 3.7 K/uL 2.1-8.0 43 Abs Lymphocytes 2.4 K/uL 0.8-5.5 43 Abmon 0.5 K/uL 0.1-1.0 43 Abs Eosinophils 0.2 K/uL 0.0-0.5 43 Abs Basophils 0.0 K/uL 0.0-0.3 43 CBC With Auto Diff 01/30/2014 WBC 6.3 K/uL 4.1-11.0 49 RBC 4.43 M/uL 4.00-5.40 49 Hemoglobin 13.6 gm/dL 12.0-16.0 49 Hematocrit 41.1 % 36.0-47.0 49 MCV 92.9 fL 80.0-97.0 49 MCH 30.6 pg 27.0-32.0 49 MCHC 33.0 g/dL 32.0-36.0 49 RDW 13.7 % 11.5-14.5 49 PLT Count 217 K/ul 140-400 49 Neutrophil 56.4 % 35.0-75.0 49 Lymphocyte 33.9 % 16.0-52.0 49 Monocyte 6.5 % 2.0-10.0 49 Eosinophil 2.3 % 0.0-5.0 49 Basophil 0.9 % 0.0-4.0 49 Abs Neutrophils 3.5 K/uL 2.1-8.0 49 Abs Lymphocytes 2.1 K/uL 0.8-5.5 49 Abmon 0.4 K/uL 0.1-1.0 49 Abs Eosinophils 0.1 K/uL 0.0-0.5 49 Abs Basophils 0.1 K/uL 0.0-0.3 49 Comprehensive Metabolic (CMP) 01/30/2014 Sodium 135 mmol/L 134-142 49 Potassium 4.7 mmol/L 3.5-5.2 49 Chloride 100 mmol/L 97-109 49 Carbon Dioxide 27 mmol/L 24-34 49 Glucose 99 mg/dL 70-105 49 BUN 13 mg/dL 6-26 49 Creatinine 0.6 mg/dL 0.5-1.4 49 Calcium 9.3 mg/dL 8.5-10.2 49 Total Protein 7.5 g/dL 6.0-8.0 49 Albumin 4.2 g/dL 3.6-4.9 49 Globulin 3.3 g/dL 2.0-3.5 49 A/G Ratio 1.3 Ratio 1.0-2.2 49 Total Bilirubin 0.5 mg/dL 0.1-1.3 49 Alkaline Phosphatase 59 U/L 24-140 49 Alt 23 U/L 3-42 49 Ast 19 U/L 8-42 49 Anion Gap 13 mmol/L 6-14 49 Lucille Egfr >60 >60 49, 50 Non Lucille Egfr >60 >60 49, 51 Lipid 01/30/2014 Cholesterol 204 mg/dL High 50-199 49 Triglycerides 181 mg/dL 30-200 49 HDL 36 mg/dL 35-85 49, 52 Chol/ HDL Ratio 5.7 ratio High 3.7-5.6 49 VLDL 36 mg/dL High 2-29 49 LDL (Calc) 132 mg/dL High 20-99 49, 53 Laboratory test finding 01/30/2014 Hemoglobin A1c 6.6 % High 4.1-5.9 49 Vit D,25 Hydroxy 37 ng/mL 31-100 49 Uric Acid 6.6 mg/dL 2.6-7.6 49 Laboratory test finding 01/30/2014 Lyme Igm/Igg AB NEGATIVE (Neg) 49, 54 CBC With Auto Diff 08/30/2013 WBC 5.7 K/uL 4.1-11.0 55 RBC 4.84 M/uL 4.00-5.40 55 Hemoglobin 14.3 gm/dL 12.0-16.0 55 Hematocrit 42.2 % 36.0-47.0 55 MCV 87.3 fL 80.0-97.0 55 MCH 29.6 pg 27.0-32.0 55 MCHC 33.9 g/dL 32.0-36.0 55 RDW 14.1 % 11.5-14.5 55 PLT Count 188 K/ul 140-400 55 Neutrophil 49.8 % 35.0-75.0 55 Lymphocyte 39.2 % 16.0-52.0 55 Monocyte 7.5 % 2.0-10.0 55 Eosinophil 2.4 % 0.0-5.0 55 Basophil 1.1 % 0.0-4.0 55 Abs Neutrophils 2.8 K/uL 2.1-8.0 55 Abs Lymphocytes 2.2 K/uL 0.8-5.5 55 Abmon 0.4 K/uL 0.1-1.0 55 Abs Eosinophils 0.1 K/uL 0.0-0.5 55 Abs Basophils 0.1 K/uL 0.0-0.3 55 Comprehensive Metabolic (CMP) 08/30/2013 Sodium 136 mmol/L 134-142 55 Potassium 4.8 mmol/L 3.5-5.2 55 Chloride 101 mmol/L 97-109 55 Carbon Dioxide 27 mmol/L 24-34 55 Glucose 117 mg/dL High 70-105 55 BUN 14 mg/dL 6-26 55 Creatinine 0.7 mg/dL 0.5-1.4 55 Calcium 9.5 mg/dL 8.5-10.2 55 Total Protein 7.7 g/dL 6.0-8.0 55 Albumin 4.2 g/dL 3.6-4.9 55 Globulin 3.5 g/dL 2.0-3.5 55 A/G Ratio 1.2 Ratio 1.0-2.2 55 Total Bilirubin 0.6 mg/dL 0.1-1.3 55 Alkaline Phosphatase 76 U/L 24-140 55 Alt 24 U/L 3-42 55 Ast 25 U/L 8-42 55 Anion Gap 13 mmol/L 6-14 55 Lucille Egfr >60 >60 55, 56 Non Lucille Egfr >60 >60 55, 57 Lipid 08/30/2013 Cholesterol 215 mg/dL High 50-199 55 Triglycerides 160 mg/dL 30-200 55 HDL 38 mg/dL 35-85 55, 58 Chol/ HDL Ratio 5.7 ratio High 3.7-5.6 55 VLDL 32 mg/dL High 2-29 55 LDL (Calc) 145 mg/dL High 20-99 55, 59 Microalb/Creat Panel 08/30/2013 Creatinine, Urine 74.6 mg/dL 55 Microalb/Creat Urine 13.93 ug/mgCreat 0.00-30.00 55 Microalbumin 10.4 ug/ml 0.0-20.0 55 Laboratory test finding 08/30/2013 Hemoglobin A1c 7.7 % High 4.1-5.9 55 TSH 0.99 uIU/mL 0.34-5.60 55 Vitamin B12 275 pg/mL 180-914 55 Vit D,25 Hydroxy 26 ng/mL Low 31-100 55 1 Per NCEP ATP III Guidelines: Results lower than 40 mg/dL are suggestive of increased risk for coronary artery disease. Results > or=to 60 mg/dL are considered a negative risk factor. 2 Per NCEP ATP III Guidelines: Normal Population <130 Patients with medical conditions: CHD/DM Optimal: <100 Borderline high: 130-159 High: 160-189 Very high: >189 3 Updated reference range on new analyzer 4 Updated reference range on new analyzer 5 Concerning GFR Guidelines for Americans: Normal function or mild renal disease, if clinically at risk: >/=60 mL/min Moderately decreased: 30-59 Severely decreased: 15-29 Renal failure: <15 6 Concerning GFR Guidelines: Normal function or mild renal disease, if clinically at risk: >/=60 mL/min Moderately decreased: 30-59 Severely decreased: 15-29 Renal failure: <15 Glomerular Filtration Rate (GFR) is estimated based on the MDRD equation, which assumes a steady state for creatinine as recommended by the National Kidney Disease Education Program in conjunction with the National Institutes of Health and the National Kidney Foundation. Clinical conditions in which it may be necessary to measure GFR by using clearance methods include extremes of age and body size, severe malnutrition or obesity, diseases of skeletal muscle, paraplegia or quadriplegia, vegetarian diet, rapidly changing kidney function, and calculation of the dose of potentially toxic drugs that are excreted by the kidneys. 7 Updated reference range on new analyzer 8 Updated reference range on new analyzer 9 Updated reference range on new analyzer 10 Concerning GFR Guidelines for Americans: Normal function or mild renal disease, if clinically at risk: >/=60 mL/min Moderately decreased: 30-59 Severely decreased: 15-29 Renal failure: <15 11 Concerning GFR Guidelines: Normal function or mild renal disease, if clinically at risk: >/=60 mL/min Moderately decreased: 30-59 Severely decreased: 15-29 Renal failure: <15 Glomerular Filtration Rate (GFR) is estimated based on the MDRD equation, which assumes a steady state for creatinine as recommended by the National Kidney Disease Education Program in conjunction with the National Institutes of Health and the National Kidney Foundation. Clinical conditions in which it may be necessary to measure GFR by using clearance methods include extremes of age and body size, severe malnutrition or obesity, diseases of skeletal muscle, paraplegia or quadriplegia, vegetarian diet, rapidly changing kidney function, and calculation of the dose of potentially toxic drugs that are excreted by the kidneys. 12 Updated reference range on new analyzer 13 Per NCEP ATP III Guidelines: Results lower than 40 mg/dL are suggestive of increased risk for coronary artery disease. Results > or=to 60 mg/dL are considered a negative risk factor. 14 Per NCEP ATP III Guidelines: Normal Population <130 Patients with medical conditions: CHD/DM Optimal: <100 Borderline high: 130-159 High: 160-189 Very high: >189 15 PLEASE MAIL COPY TO PT 16 Concerning GFR Guidelines for Americans: Normal function or mild renal disease, if clinically at risk: >/=60 mL/min Moderately decreased: 30-59 Severely decreased: 15-29 Renal failure: <15 17 Concerning GFR Guidelines: Normal function or mild renal disease, if clinically at risk: >/=60 mL/min Moderately decreased: 30-59 Severely decreased: 15-29 Renal failure: <15 Glomerular Filtration Rate (GFR) is estimated based on the MDRD equation, which assumes a steady state for creatinine as recommended by the National Kidney Disease Education Program in conjunction with the National Institutes of Health and the National Kidney Foundation. Clinical conditions in which it may be necessary to measure GFR by using clearance methods include extremes of age and body size, severe malnutrition or obesity, diseases of skeletal muscle, paraplegia or quadriplegia, vegetarian diet, rapidly changing kidney function, and calculation of the dose of potentially toxic drugs that are excreted by the kidneys. 18 PT WOULD LIKFE MAILED TO HER 19 Concerning GFR Guidelines for Americans: Normal function or mild renal disease, if clinically at risk: >/=60 mL/min Moderately decreased: 30-59 Severely decreased: 15-29 Renal failure: <15 20 Concerning GFR Guidelines: Normal function or mild renal disease, if clinically at risk: >/=60 mL/min Moderately decreased: 30-59 Severely decreased: 15-29 Renal failure: <15 Glomerular Filtration Rate (GFR) is estimated based on the MDRD equation, which assumes a steady state for creatinine as recommended by the National Kidney Disease Education Program in conjunction with the National Institutes of Health and the National Kidney Foundation. Clinical conditions in which it may be necessary to measure GFR by using clearance methods include extremes of age and body size, severe malnutrition or obesity, diseases of skeletal muscle, paraplegia or quadriplegia, vegetarian diet, rapidly changing kidney function, and calculation of the dose of potentially toxic drugs that are excreted by the kidneys. 21 Per NCEP ATP III Guidelines: Results lower than 40 mg/dL are suggestive of increased risk for coronary artery disease. Results > or=to 60 mg/dL are considered a negative risk factor. 22 Per NCEP ATP III Guidelines: Normal Population <130 Patients with medical conditions: CHD/DM Optimal: <100 Borderline high: 130-159 High: 160-189 Very high: >189 23 Concerning GFR Guidelines for Americans: Normal function or mild renal disease, if clinically at risk: >/=60 mL/min Moderately decreased: 30-59 Severely decreased: 15-29 Renal failure: <15 24 Concerning GFR Guidelines: Normal function or mild renal disease, if clinically at risk: >/=60 mL/min Moderately decreased: 30-59 Severely decreased: 15-29 Renal failure: <15 Glomerular Filtration Rate (GFR) is estimated based on the MDRD equation, which assumes a steady state for creatinine as recommended by the National Kidney Disease Education Program in conjunction with the National Institutes of Health and the National Kidney Foundation. Clinical conditions in which it may be necessary to measure GFR by using clearance methods include extremes of age and body size, severe malnutrition or obesity, diseases of skeletal muscle, paraplegia or quadriplegia, vegetarian diet, rapidly changing kidney function, and calculation of the dose of potentially toxic drugs that are excreted by the kidneys. 25 PT WOULD LIKE RESULTS MAILED TO HER -BR 26 Concerning GFR Guidelines for Americans: Normal function or mild renal disease, if clinically at risk: >/=60 mL/min Moderately decreased: 30-59 Severely decreased: 15-29 Renal failure: <15 27 Concerning GFR Guidelines: Normal function or mild renal disease, if clinically at risk: >/=60 mL/min Moderately decreased: 30-59 Severely decreased: 15-29 Renal failure: <15 Glomerular Filtration Rate (GFR) is estimated based on the MDRD equation, which assumes a steady state for creatinine as recommended by the National Kidney Disease Education Program in conjunction with the National Institutes of Health and the National Kidney Foundation. Clinical conditions in which it may be necessary to measure GFR by using clearance methods include extremes of age and body size, severe malnutrition or obesity, diseases of skeletal muscle, paraplegia or quadriplegia, vegetarian diet, rapidly changing kidney function, and calculation of the dose of potentially toxic drugs that are excreted by the kidneys. 28 Concerning GFR Guidelines for Americans: Normal function or mild renal disease, if clinically at risk: >/=60 mL/min Moderately decreased: 30-59 Severely decreased: 15-29 Renal failure: <15 29 Concerning GFR Guidelines: Normal function or mild renal disease, if clinically at risk: >/=60 mL/min Moderately decreased: 30-59 Severely decreased: 15-29 Renal failure: <15 Glomerular Filtration Rate (GFR) is estimated based on the MDRD equation, which assumes a steady state for creatinine as recommended by the National Kidney Disease Education Program in conjunction with the National Institutes of Health and the National Kidney Foundation. Clinical conditions in which it may be necessary to measure GFR by using clearance methods include extremes of age and body size, severe malnutrition or obesity, diseases of skeletal muscle, paraplegia or quadriplegia, vegetarian diet, rapidly changing kidney function, and calculation of the dose of potentially toxic drugs that are excreted by the kidneys. 30 Per NCEP ATP III Guidelines: Results lower than 40 mg/dL are suggestive of increased risk for coronary artery disease. Results > or=to 60 mg/dL are considered a negative risk factor. 31 Per NCEP ATP III Guidelines: Normal Population <130 Patients with medical conditions: CHD/DM Optimal: <100 Borderline high: 130-159 High: 160-189 Very high: >189 32 Fastin hours 33 Concerning GFR Guidelines for Americans: Normal function or mild renal disease, if clinically at risk: >/=60 mL/min Moderately decreased: 30-59 Severely decreased: 15-29 Renal failure: <15 34 Concerning GFR Guidelines: Normal function or mild renal disease, if clinically at risk: >/=60 mL/min Moderately decreased: 30-59 Severely decreased: 15-29 Renal failure: <15 Glomerular Filtration Rate (GFR) is estimated based on the MDRD equation, which assumes a steady state for creatinine as recommended by the National Kidney Disease Education Program in conjunction with the National Institutes of Health and the National Kidney Foundation. Clinical conditions in which it may be necessary to measure GFR by using clearance methods include extremes of age and body size, severe malnutrition or obesity, diseases of skeletal muscle, paraplegia or quadriplegia, vegetarian diet, rapidly changing kidney function, and calculation of the dose of potentially toxic drugs that are excreted by the kidneys. 35 Per NCEP ATP III Guidelines: Results lower than 40 mg/dL are suggestive of increased risk for coronary artery disease. Results > or=to 60 mg/dL are considered a negative risk factor. 36 Per NCEP ATP III Guidelines: Normal Population <130 Patients with medical conditions: CHD/DM Optimal: <100 Borderline high: 130-159 High: 160-189 Very high: >189 37 This sample is drawn by:MARGIE 38 Concerning GFR Guidelines for Americans: Normal function or mild renal disease, if clinically at risk: >/=60 mL/min Moderately decreased: 30-59 Severely decreased: 15-29 Renal failure: <15 39 Concerning GFR Guidelines: Normal function or mild renal disease, if clinically at risk: >/=60 mL/min Moderately decreased: 30-59 Severely decreased: 15-29 Renal failure: <15 Glomerular Filtration Rate (GFR) is estimated based on the MDRD equation, which assumes a steady state for creatinine as recommended by the National Kidney Disease Education Program in conjunction with the National Institutes of Health and the National Kidney Foundation. Clinical conditions in which it may be necessary to measure GFR by using clearance methods include extremes of age and body size, severe malnutrition or obesity, diseases of skeletal muscle, paraplegia or quadriplegia, vegetarian diet, rapidly changing kidney function, and calculation of the dose of potentially toxic drugs that are excreted by the kidneys. 40 Per NCEP ATP III Guidelines: Results lower than 40 mg/dL are suggestive of increased risk for coronary artery disease. Results > or=to 60 mg/dL are considered a negative risk factor. 41 Per NCEP ATP III Guidelines: Normal Population <130 Patients with medical conditions: CHD/DM Optimal: <100 Borderline high: 130-159 High: 160-189 Very high: >189 42 Unless otherwise specified, testing performed by [facility] [address] [place] [id number] [phone] This sample is drawn by:ALEXANDER 44 Concerning GFR Guidelines for Americans: Normal function or mild renal disease, if clinically at risk: >/=60 mL/min Moderately decreased: 30-59 Severely decreased: 15-29 Renal failure: <15 45 Concerning GFR Guidelines: Normal function or mild renal disease, if clinically at risk: >/=60 mL/min Moderately decreased: 30-59 Severely decreased: 15-29 Renal failure: <15 Glomerular Filtration Rate (GFR) is estimated based on the MDRD equation, which assumes a steady state for creatinine as recommended by the National Kidney Disease Education Program in conjunction with the National Institutes of Health and the National Kidney Foundation. Clinical conditions in which it may be necessary to measure GFR by using clearance methods include extremes of age and body size, severe malnutrition or obesity, diseases of skeletal muscle, paraplegia or quadriplegia, vegetarian diet, rapidly changing kidney function, and calculation of the dose of potentially toxic drugs that are excreted by the kidneys. 46 Per NCEP ATP III Guidelines: Results lower than 40 mg/dL are suggestive of increased risk for coronary artery disease. Results > or=to 60 mg/dL are considered a negative risk factor. 47 Per NCEP ATP III Guidelines: Normal Population <130 Patients with medical conditions: CHD/DM Optimal: <100 Borderline high: 130-159 High: 160-189 Very high: >189 48 Screen for IVETTE is positive. Please triage the lab within 5 days if you would like additional testing. 49 This sample is drawn by:MARGIE 50 Concerning GFR Guidelines for Americans: Normal function or mild renal disease, if clinically at risk: >/=60 mL/min Moderately decreased: 30-59 Severely decreased: 15-29 Renal failure: <15 51 Concerning GFR Guidelines: Normal function or mild renal disease, if clinically at risk: >/=60 mL/min Moderately decreased: 30-59 Severely decreased: 15-29 Renal failure: <15 Glomerular Filtration Rate (GFR) is estimated based on the MDRD equation, which assumes a steady state for creatinine as recommended by the National Kidney Disease Education Program in conjunction with the National Institutes of Health and the National Kidney Foundation. Clinical conditions in which it may be necessary to measure GFR by using clearance methods include extremes of age and body size, severe malnutrition or obesity, diseases of skeletal muscle, paraplegia or quadriplegia, vegetarian diet, rapidly changing kidney function, and calculation of the dose of potentially toxic drugs that are excreted by the kidneys. 52 Per NCEP ATP III Guidelines: Results lower than 40 mg/dL are suggestive of increased risk for coronary artery disease. Results > or=to 60 mg/dL are considered a negative risk factor. 53 Per NCEP ATP III Guidelines: Normal Population <130 Patients with medical conditions: CHD/DM Optimal: <100 Borderline high: 130-159 High: 160-189 Very high: >189 54 A Negative serologic test for Lyme Disease indicates no serologic evidence of infection with B burgdorferi at the time this specimen was collected. A repeat specimen should be collected in 2 to 4 weeks if clinically indicated. Unless otherwise specified, testing performed by [facility] [address] [place] [id number] This sample is drawn by:MORGAN/ZORAN 56 Concerning GFR Guidelines for Americans: Normal function or mild renal disease, if clinically at risk: >/=60 mL/min Moderately decreased: 30-59 Severely decreased: 15-29 Renal failure: <15 57 Concerning GFR Guidelines: Normal function or mild renal disease, if clinically at risk: >/=60 mL/min Moderately decreased: 30-59 Severely decreased: 15-29 Renal failure: <15 Glomerular Filtration Rate (GFR) is estimated based on the MDRD equation, which assumes a steady state for creatinine as recommended by the National Kidney Disease Education Program in conjunction with the National Institutes of Health and the National Kidney Foundation. Clinical conditions in which it may be necessary to measure GFR by using clearance methods include extremes of age and body size, severe malnutrition or obesity, diseases of skeletal muscle, paraplegia or quadriplegia, vegetarian diet, rapidly changing kidney function, and calculation of the dose of potentially toxic drugs that are excreted by the kidneys. 58 Per NCEP ATP III Guidelines: Results lower than 40 mg/dL are suggestive of increased risk for coronary artery disease. Results > or=to 60 mg/dL are considered a negative risk factor. 59 Per NCEP ATP III Guidelines: Normal Population <130 Patients with medical conditions: CHD/DM Optimal: <100 Borderline high: 130-159 High: 160-189 Very high: >189 Procedures Date CPT Code Description Status Comment 12/16/2016 Colonoscopy Completed Document: 12/16/16 - Colonoscopy 11/25/2016 Mammogram Completed 01/30/2014 69889 Electrocardiogram Complete Completed Encounters Type Date Location Provider CPT E/M Dx Office Visit 03/24/2017 10:20a Jennifer Cedeno RN [facility] 17002 I69.854 E11.9 I10 Office Visit 11/11/2016 1:20p Jennifer Cedeno RN [facility] 20440 Z00.00 I69.854 E66.01 E11.9 I10 M25.562 Z12.11 Z12.31 E55.9 Office Visit 05/07/2016 9:40a Jennifer Cedeno RN [facility] 29739 E11.9 I10 I63.9 E55.9 Z11.59 Office Visit 01/09/2016 9:40a Jennifer Cedeno RN [facility] 76062 E11.9 I10 R53.83 G25.81 N39.3 Z12.31 Office Visit 09/20/2015 9:20a Jennifer Cedeno RN [facility] 55743 E11.9 G25.81 I10 E78.0 M25.562 I63.9 Office Visit 05/31/2015 8:40a Jennifer Cedeno RN [facility] 36898 E11.9 M10.9 E55.9 G25.81 F32.9 I10 Office Visit 02/27/2015 9:40[place] [address] E11.9 M10.9 E55.9 E78.0 M17.9 I10 F32.9 G25.81 Z86.73 Office Visit 12/06/2014 11:40[place] [address] Z86.73 E11.9 E78.0 Office Visit 11/28/2014 9:40[place] [address] 401.1 250.00 274.9 268.9 715.96 272.0 278.00 Office Visit 08/14/2014 9:40[place] [address] 401.1 250.00 274.9 780.79 454.9 V70.0 268.9 724.3 278.01 715.96 Office Visit 05/15/2014 9:40a [place] [address] 401.1 250.00 268.9 274.9 780.79 715.96 272.0 278.00 Office Visit 01/30/2014 9:40a [place] [address] 401.1 250.00 268.9 274.9 780.79 715.96 272.0 278.00 Office Visit 10/31/2013 1:40p [place] [address] 401.1 274.9 250.00 780.79 268.9 715.96 272.0 Office Visit 09/26/2013 1:00p [place] [address] 401.1 274.9 250.00 780.79 268.9 715.96 724.3 272.0 Office Visit 09/19/2013 2:20p [place] [address] 274.9 401.1 780.79 Office Visit 08/28/2013 11:20[place] [address] 401.1 250.00 715.96 724.3 Plan of Care Future Appointment(s):09/24/2017 9:00 am - Jennifer Morejon RN [id number]/26/2017 - Nicolas Mccoy [id number] Encounter for other preprocedural examinationComments:Pt is moderate risk for a moderate risk procedure. just had a full cardiology work-up. Medical conditions are optimized for the current procedure.E11.9 Type 2 diabetes mellitus without complicationsComments: stable on meds.I10 Essential (primary) hypertensionComments:stable on current medsE66.01 Morbid (severe) obesity due to excess caloriesComments:needs activity and the TKA will assist that.I63.9 Cerebral infarction, unspecifiedComments:stable on medsI69.854 Hemiplga fol oth cerebvasc disease aff LEFT nondom sideComments:kwujgcW61.562 Pain in LEFT kneeComments:plan for L TKA. Labs deferred to the preadmission testing department.
[2017-05-11] MEDS ORDERED: Buffered Lidocaine 0.9% SYRIN* 5 ML/SYR SYRINGE ONE (07:25)
[2017-05-11] MEDS ORDERED: ceFAZolin 2 GM in 100 MLS NS (*) BAG IVPB ONE (07:25)
[2017-05-11] MEDS ORDERED: fentaNYL* 50 MCG/ML 2 ML VIAL (100 MCG VIAL) ONE (09:19)
[2017-05-11] MEDS ORDERED: Midazolam* 1 MG/ML 5 ML VIAL (5 MG) ONE (09:19)
[2017-05-11] MEDS ORDERED: Bupivacaine 0.5% SDV PF* 10-30ML VIAL ONE ×3 (09:26→10:29)
[2017-05-11] MEDS ORDERED: Morphine PF AMP (0.5MG/ML)* 5 MG/10 ML AMP ONE (10:15)
[2017-05-11] MEDS ORDERED: Propofol* 10 MG/ML 20 ML BTL IV PUSH ONE ×2 (10:29→11:51)
[2017-05-11] MEDS ORDERED: EPHEDrine (Pressors)* 50 MG/ML VIAL ONE (10:57)
[2017-05-11] MEDS ORDERED: Naloxone* 0.4 MG/ML 1 ML VIAL IV PRN ×2 (11:16)
[2017-05-11] MEDS ORDERED: diPHENhydraMINE IV* 50 MG/ML 1 ml VIAL (BENADRYL) IV PRN (11:16)
[2017-05-11] MEDS ORDERED: HYDROcodone/ACETAMIN 5-325 MG* 1 TAB PO PRN (11:16)
[2017-05-11] MEDS ORDERED: fentaNYL* 50 MCG/ML 2 ML VIAL (100 MCG VIAL) IV PRN (11:16)
[2017-05-11] MEDS ORDERED: Nalbuphine* 20 MG/ML 1 ML VIAL IV PRN ×3 (11:16)
[2017-05-11] MEDS ORDERED: Ondansetron INJ* 2 MG/ML VIAL IV PRN ×2 (11:16)
[2017-05-11] MEDS ORDERED: HYDROmorphone INJ* 1 MG/ML CARPUJECT SYRINGE IV PRN (11:16)
[2017-05-11] MEDS ORDERED: Metoclopramide IV* 5 MG/ML 2 ML VIAL IV PRN ×2 (11:16)
[2017-05-11] MEDS ORDERED: DiMENhydriNATE IV* 50 MG/ML VIAL IV PUSH PRN ×2 (11:16)
[2017-05-11] MEDS ORDERED: Polyethylene Glycol 3350* 17 GM PACKET PO PRN (11:34)
[2017-05-11] MEDS ORDERED: Cyclobenzaprine TAB* 10 MG PO PRN (11:34)
[2017-05-11] MEDS ORDERED: Bisacodyl SUPP* 10 MG SUPP PR PRN (11:34)
[2017-05-11] MEDS ORDERED: Magnesium Hydroxide LIQ* 30 ML UDC PO PRN (11:34)
[2017-05-11] MEDS ORDERED: Acetaminophen TAB* 325 MG PO PRN (11:34)
[2017-05-11] MEDS ORDERED: ceFAZolin 1 GM in Dextrose (*) 1 GM/50 ML BAG IVPB SCH (12:00)
--- NOTE | 2017-05-11 14:54 | RAD ---
Patient: Left knee replacement. 2 views of left knee demonstrates bipolar left knee arthroplasty in satisfactory position. No loosening is noted. IMPRESSION: Left knee bipolar arthroplasty in satisfactory position.
[2017-05-11] MEDS ORDERED: Dextrose 50% Syringe 50 ML* 25 GM/50 ML SYRINGE IV PUSH PRN (15:46)
[2017-05-11] MEDS: HYDROcodone/ACETAMIN 5-325 MG* 1 TAB PO PRN ×2 (16:48→20:46)
[2017-05-11] MEDS: Insulin LISPRO* 1 UNITS UNIT SUBCUT SCH ×2 (17:55→20:50)
[2017-05-11] MEDS: ceFAZolin 1 GM* Q8H x 3 doses IVPB SCH ×2 (18:21)
[2017-05-11] MEDS: Magnesium Hydroxide LIQ* 30 ML UDC PO SCH (20:44)
[2017-05-11] MEDS: Docusate CAP* 100 MG PO SCH (20:44)
[2017-05-11] MEDS ORDERED: metFORMIN* 1,000 MG TAB PO SCH (21:00)
[2017-05-11] MEDS ORDERED: Morphine INJ* 2 MG/ML 1 ML CARPUJECT IV PRN (23:23)
[2017-05-11] MEDS ORDERED: oxyCODONE/Acetamin 5/325 MG* TAB PO PRN (23:24)
[2017-05-11] MEDS: oxyCODONE TAB* 5 MG TAB PO PRN (23:26)
--- NOTE | 2017-05-11 23:26 | CONS ---
CC: Dr. Hidalgo; NABILA Ashley * CONSULTATION REPORT: DATE OF CONSULT: 05/11/17 The consultation was requested by Dr. Hidalgo in regards to the patient's history of hypertension and diabetes. PRIMARY CARE PROVIDER: NABILA Ashley. CHIEF COMPLAINT: Left knee pain. HISTORY OF PRESENT ILLNESS: Mrs. 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 She is seen postoperatively in her surgical unit room. She feels well, although she complains of postoperative knee pain. She is seen for routine consultation in regards to her management of her medical comorbidities. PAST MEDICAL HISTORY: 1. Diabetes type 2. 2. History of dyslipidemia. 3. Hypertension. 4. Depression. 5. Vitamin D deficiency. 6. History of ischemic CVA in 2014 with residual left-sided weakness. 7. History of hernia repair. 8. x2. 9. History of varicose vein surgery in bilateral lower extremities. MEDICATIONS: Current medications include: 1. Metformin 1000 mg at bedtime. 2. Coenzyme Q10, 100 mg daily. 3. Ditropan 5 mg daily. 4. Multivitamin 1 tablet daily. 5. Metoprolol tartrate 100 mg daily. 6. Magnesium 400 mg daily. 7. Losartan 100 mg daily. 8. Plavix 75 mg daily. 9. Celexa 20 mg daily. 10. Vitamin D3, 2000 units daily. 11. Baclofen 5 mg b.i.d. 12. Aspirin 81 mg daily. 13. Amlodipine 5 mg daily. ALLERGIES: The patient is intolerant to STATINS. FAMILY HISTORY: Positive for father with history of COPD. SOCIAL HISTORY: The patient denies any tobacco, alcohol or drug use. She lives alone. As her surrogate, she listed her female friend, Marilu Ferguson. REVIEW OF SYSTEMS: Please see history of present illness. All the remaining 12 systems were reviewed with the patient and were otherwise negative. PHYSICAL EXAM: Blood pressure of 153/67, heart rate of 78 and regular, respiratory rate 17, oxygen saturation 93% on room air, and temperature of 97.5. General: The patient is a very pleasant 56-year-old female, who is in no acute distress. Alert, awake, and oriented x3. HEENT: Head atraumatic, normocephalic. Eyes: Pupils are equal, reactive to light and accommodation. Oropharynx clear. Mucosa moist. Neck: Supple. No JVD, no bruits bilaterally. Cardiovascular: Regular rate and rhythm. No murmur. Respiratory: Clear to auscultation bilaterally. Abdomen: Soft, nontender. Bowel sounds are present in all 4 quadrants. Extremities: There is no edema. Pulses +2 bilaterally. No clubbing or cyanosis. The left knee is in postoperative cryo element. There is a drain attached also. On neuro evaluation, speech is clear. Cranial nerves II through XII grossly intact. Motor strength diminished in the left upper extremity with contracted hand distally and overall motor strength is 3 to 3 +/5. The left lower extremity mobility was difficult to assess due to postoperative state and pain, but appears to be slightly diminished at 4+/5. The motor strength in the right upper and right lower extremity is unremarkable and at 5/5. On psychiatric evaluation, the patient is oriented x2. No evidence of anxiety or depression. LABORATORY DATA: Currently laboratory data, none. ASSESSMENT AND PLAN: 1. In regards to the patient's left knee postoperative state, the patient was placed on Lovenox for DVT prophylaxis as per surgical service. 2. In regards to the patient's history of ischemic cerebrovascular accident, the patient's aspirin and Plavix were held perioperatively and needs to be restarted as soon as possible as per surgical service. 3. For the patient's diabetes, the patient's metformin is going to be held. She is going to be placed on insulin sliding scale. 4. For the patient's depression, Celexa should be continued. 5. For the patient's high blood pressure, we will hold the patient's amlodipine. Continue metoprolol and hold losartan. TIME SPENT: Approximately 55 minutes were spent on consultation of this patient , more than half of the time was spent [id number] with the patient during the interview and physical exam. Thank you very much for allowing me to see your patient in consultation. We will follow on a daily basis. [id number]/[id number] #: [id number] REGINA
[2017-05-12] MEDS ORDERED: diPHENhydraMINE LIQ* 12.5 MG/5 ML UDC PO PRN (02:26)
[2017-05-12] MEDS ORDERED: Ondansetron INJ* 2 MG/ML VIAL IV PRN (02:26)
[2017-05-12] MEDS ORDERED: Ondansetron TAB* 4 MG PO PRN (02:26)
[2017-05-12] MEDS: ceFAZolin 1 GM* Q8H x 3 doses IVPB SCH ×4 (03:38→10:55)
[2017-05-12] MEDS: oxyCODONE TAB* 5 MG TAB PO PRN ×4 (03:41→15:43)
[2017-05-12 06:19] LABS: Hematocrit 30 % (35-47); Hemoglobin 10.3 g/dl (12.0-16.0); Mean Platelet Volume 8 um3 (7.4-10.4); Platelet Count 186 10^3/ul (150-450)
[2017-05-12 06:33] LABS: EGFR Non-African American 102.7 (>60)
[2017-05-12] MEDS ORDERED: Furosemide IV* 10 MG/ML 2 ML VIAL (20 MG) IV ONE (08:48)
[2017-05-12] MEDS ORDERED: amLODIPine TAB* 5 MG PO SCH (09:00)
[2017-05-12] MEDS ORDERED: Losartan TAB* 25 MG PO SCH (09:00)
--- NOTE | 2017-05-12 09:04 | PN ---
Subjective Date of Service: 05/12/17 Interval History: pt got anxious and SOB when getting up with PT, feels batter now. Objective Active Medications: Acetaminophen (Tylenol Tab*) 650 mg PO Q4H PRN PRN Reason: PAIN OR TEMPERATURE Bisacodyl (Dulcolax Supp*) 10 mg [place] DAILY PRN PRN Reason: constipation Citalopram Hydrobromide (Celexa Tab*) 20 mg PO QAM [facility] Cyclobenzaprine HCl (Flexeril Tab*) 10 mg PO TID PRN PRN Reason: SPASMS Dextrose (D50w Syringe 50 Ml*) 12.5 gm IV PUSH .FOR FS < 60 - SS PRN PRN Reason: FS < 60 Diphenhydramine HCl (Benadryl Liq*) 12.5 mg PO Q6H PRN PRN Reason: itching Docusate Sodium (Colace Cap*) 100 mg PO BID [facility] Last Admin: 05/11/17 20:44 Dose: 100 mg Enoxaparin Sodium (Lovenox(*)) 30 mg SUBCUT Q24H [facility] Cefazolin Sodium 1 gm/ Sodium (Chloride) 50 mls @ 200 mls/hr IVPB Q8H [facility] Stop: 05/12/17 10:44 Last Admin: 05/12/17 03:38 Dose: 200 mls/hr Insulin Human Lispro (Humalog*) 0 units SUBCUT ACHS [facility] PRN Reason: Protocol Last Admin: 05/11/17 20:50 Dose: 2 units Lactulose (Lactulose*) 30 ml PO Q6H PRN PRN Reason: constipation Losartan Potassium (Cozaar Tab*) 100 mg PO DAILY [facility] Magnesium Hydroxide (Milk Of Magnesia Liq*) 30 ml PO BID [facility] Last Admin: 05/11/17 20:44 Dose: 30 ml Magnesium Hydroxide (Milk Of Magnesia Liq*) 30 ml PO Q6H PRN PRN Reason: constipation Magnesium Oxide (Magox 400 Tab*) 400 mg PO QAM [facility] Metoprolol Tartrate (Lopressor Tab*) 100 mg PO QAM [facility] Morphine Sulfate (Morphine Inj (Syringe)*) 2 mg IV Q2H PRN PRN Reason: PAIN Ondansetron HCl (Zofran Inj*) 4 mg IV Q6H PRN PRN Reason: nausea Ondansetron HCl (Zofran Tab*) 4 mg PO Q6H PRN PRN Reason: NAUSEA Oxybutynin Chloride (Ditropan Tab*) 5 mg PO QAM [facility] Oxycodone HCl (Roxycodone Tab*) 10 mg PO Q4H PRN PRN Reason: SEVERE PAIN Last Admin: 05/12/17 07:35 Dose: 10 mg Oxycodone/Acetaminophen (Percocet 5/325 Tab*) 2 tab PO Q4H PRN PRN Reason: PAIN Oxycodone/Acetaminophen (Percocet 5/325 Tab*) 1 tab PO Q4H PRN PRN Reason: PAIN Polyethylene Glycol/Electrolytes (Miralax*) 17 gm PO DAILY PRN PRN Reason: Constipation Vital Signs - 8 hr 05/12/17 05/12/17 05/12/17 02:19 03:00 03:29 Temperature 98.3 F Pulse Rate 84 Respiratory 16 16 16 Rate Blood Pressure 111/56 (mmHg) O2 Sat by Pulse 94 Oximetry 05/12/17 05/12/17 05/12/17 03:41 06:08 07:26 Temperature 98.7 F Pulse Rate 88 Respiratory 16 16 16 Rate Blood Pressure 118/51 (mmHg) O2 Sat by Pulse 92 Oximetry 05/12/17 07:35 Temperature Pulse Rate Respiratory 18 Rate Blood Pressure (mmHg) O2 Sat by Pulse Oximetry Oxygen Devices in Use Now: None - 2L, Nasal Cannula Appearance: 56 yo f in nAD, aAOx3 Eyes: No Scleral Icterus, PERRLA Ears/Nose/Mouth/Throat: NL Teeth, Lips, Gums, Mucous Membranes Moist Neck: NL Appearance and Movements; NL JVP, Trachea Midline Respiratory: Symmetrical Chest Expansion and Respiratory Effort, Clear to Auscultation Cardiovascular: NL Sounds; No Murmurs; No JVD, RRR Abdominal: NL Sounds; No Tenderness; No Distention, No Hepatosplenomegaly Lymphatic: No Cervical Adenopathy Extremities: No Clubbing, Cyanosis, - - trace left pedal edema Skin: No Nodules or Sclerosis, - - left post op knee-incision not inspected Neurological: Alert and Oriented x 3, - - left hand contracted , left arm at 4/5 , left leg at 4+/5, mild flattening of left nasolabial fold Result Diagrams: 05/12/17 05:55 05/12/17 05:55 Assess/Plan/Problems-Billing Assessment: 56 yo F with h/o ischemic CVA and left sided weakness, HTN, DM, dyslipidemia , s/p elective left knee surgery - Patient Problems (1) Total knee replacement status Comment: s/p TKR on 05/11/17, as per Dr. Hidalgo (2) CVA (cerebral vascular accident) Comment: Ischemic, with residual left sided weakness. ASA and Plavix to be restarted as soon as OK per surgery (3) DM type 2 (diabetes mellitus, type 2) Comment: holding metformin cont ISS (4) HTN (hypertension) Comment: Controlled on metorpolol, will restart losartan. cont to hold Norvasc (5) Postoperative anemia due to acute blood loss Comment: Hb down to 10 -as expected post op (6) DVT prophylaxis Comment: lovenox Status and Disposition: Medicine consult
[2017-05-12] MEDS: Docusate CAP* 100 MG PO SCH ×2 (10:29→20:07)
[2017-05-12] MEDS: Citalopram TAB* 20 MG PO SCH (10:29)
[2017-05-12] MEDS: Metoprolol Tartrate TAB* 100 MG TAB PO SCH (10:29)
[2017-05-12] MEDS: Oxybutynin TAB* 5 MG PO SCH (10:29)
[2017-05-12] MEDS: Magnesium Oxide TAB* 400 MG PO SCH (10:29)
[2017-05-12] MEDS: Losartan TAB* 25 MG PO SCH (10:30)
[2017-05-12] MEDS: Insulin LISPRO* 1 UNITS UNIT SUBCUT SCH ×4 (10:31→20:06)
[2017-05-12] MEDS: Magnesium Hydroxide LIQ* 30 ML UDC PO SCH ×2 (10:34→20:07)
[2017-05-12] MEDS: Enoxaparin(*) 30 MG/0.3 ML SYR SUBCUT SCH (11:47)
--- NOTE | 2017-05-12 15:47 | PN ---
Progress Note - Progress Note Date of Service: 05/12/17 SOAP: Subjective: []Patient seen OOB in chair. She has tolerable left knee pain. She denies CP, SOB, nausea, dizziness. Objective: [] Vital Signs Temp 98.7 F 05/12/17 11:33 Pulse 83 05/12/17 11:33 Resp 16 05/12/17 15:43 BP 116/56 05/12/17 11:33 Pulse Ox 96 05/12/17 11:33 Intake & Output 05/11/17 05/12/17 05/12/17 18:59 06:59 18:59 Intake Total 1999 1285 916 Output Total 525 650 300 Balance 1475 635 616 Weight 242 lb Intake: IV Fluids 1999 1045 716 ABX - CEFAZOLIN 55 50 LR 1999 990 666 Oral 240 200 Output: Urine 300 [place] 325 650 Estimated Blood Loss 200 Laboratory Last Values Hgb 10.3 g/dl (12.0-16.0) L 05/12/17 05:55 Hct 30 % (35-47) L 05/12/17 05:55 Plt Count 186 10^3/ul (150-450) 05/12/17 05:55 MPV 8 um3 (7.4-10.4) 05/12/17 05:55 INR (Anticoag Therapy) 1.00 (0.77-1.02) 05/12/17 05:55 Sodium 134 mmol/L (133-145) 05/12/17 05:55 Potassium 4.3 mmol/L (3.5-5.0) 05/12/17 05:55 Chloride 101 mmol/L (101-111) 05/12/17 05:55 Carbon Dioxide 27 mmol/L (22-32) 05/12/17 05:55 Anion Gap 6 mmol/L (2-11) 05/12/17 05:55 BUN 15 mg/dL (6-24) 05/12/17 05:55 Creatinine 0.60 mg/dL (0.51-0.95) 05/12/17 05:55 Est GFR ( Amer) 132.1 (>60) 05/12/17 05:55 Est GFR (Non-Af Amer) 102.7 (>60) 05/12/17 05:55 BUN/Creatinine Ratio 25.0 (8-20) H 05/12/17 05:55 Glucose 142 mg/dL (70-100) H 05/12/17 05:55 POC Glucose (mg/dL) 149 mg/dL (70-100) H 05/12/17 11:50 Calcium 8.8 mg/dL (8.6-10.3) 05/12/17 05:55 General: Well appearing, NAD LLE: dressing CDI without surrounding erythema. DF/PF intact. PT pulse 2+ .Sensation intact distally. BL LE: Calves supple and nontender without erythema, edema or palpable cords. Assessment: []POD 1 sp Left total knee 05/11 Dr Hidalgo Plan: []WBAT PT/OT lovenox only PMRU consult in
[2017-05-12] MEDS: oxyCODONE/Acetamin 5/325 MG* TAB PO PRN (18:24)
--- NOTE | 2017-05-12 19:43 | OP ---
DATE OF OPERATION: 05/11/17 - ROOM #346 DATE OF : 56 SURGEON: Genet Hidalgo MD FURNACE FIRER: ADITYA Estrada. Mr. Santos did help throughout the procedure with preparation of the leg wound retraction, manipulation of the knee and wound closure. ANESTHESIOLOGIST: Dr. Cantu. ANESTHESIA: Adductor nerve block with spinal anesthesia. PRE-OP DIAGNOSIS: Severe end-stage degenerative osteoarthritis of the left knee joint. POST-OP DIAGNOSIS: Severe end-stage degenerative osteoarthritis of the left knee joint. OPERATIVE PROCEDURE: Left total knee arthroplasty. TOURNIQUET TIME: 57 minutes. COMPLICATIONS: None. ESTIMATED BLOOD LOSS: 250 cc. HARDWARE USED: This is [employer] cemented total knee arthroplasty hardware. Two packages of Simplex bone cement. For the femur, a size 6, left posterior stabilized narrow Oxinium femoral component type Legion. For the tibia, size 5 left tibial base plate. For the insert, a 9-mm posterior stabilized articular insert, size 5-6. For the patella, 32 mm 3-peg all poly patella. BRIEF HISTORY/INDICATION: Ms. Sinclair is a 56-year-old female with years of increasingly severe left knee pain. She failed conservative treatment with antiinflammatories, pain medications, intraarticular injections, and physical therapy. Radiographs showed severe end-stage [id number] arthritis. Due to continued pain and decreased quality of life, she elected to undergo a left total knee arthroplasty. Informed consent was obtained from the patient. She understood the risks of surgery included but were not limited to bleeding, infection, damage to nearby structures, continued pain, need for further surgery, intraoperative fracture, nerve palsy, hardware failure or loosening, knee stiffness, loss of motion, stroke, heart attack, blood clot and . She wished to proceed. INTRAOPERATIVE FINDINGS: Intraoperatively, the patient was noted to have an extremely stiff knee preoperatively from 50 to 90 degrees of flexion. Postoperatively, we obtained full extension at 120 degrees of flexion. She was found to have severe tricompartmental full thickness loss of cartilage. She had extensive osteophyte formation in all 3 compartments. DESCRIPTION OF PROCEDURE: Ms. Sinclair was identified in the preanesthesia unit. Her left lower extremity was marked as the correct operative side. Informed consent was signed and placed in the chart. The patient was taken to the operating room. Adductor nerve block was placed. Spinal anesthesia was placed without difficulty. A moore catheter was placed. Tourniquet was placed on the left thigh. The left lower extremity was prepped and draped in the usual sterile fashion. Preop time- out was made to correctly identify the patient, side and site. Appropriate perioperative antibiotics were given within 1 hour of incision. Tourniquet was inflated and total tourniquet time for this procedure was 57 minutes. A midline incision was made with the 10 blade and carried down to the extensor mechanism. A new 10 blade was used to make a standard medial parapatellar arthrotomy. Patella was subluxed laterally. Electrocautery was used to subperiosteally elevate soft tissue off the superomedial tibia to the mid sagittal plane. The knee was flexed up and was noted to be extremely stiff. The anterior horn of the lateral meniscus was sharply released as well as the ACL. A drill was used to enter the distal femur. Intra-medullary distal femoral cutting guide was pinned on the distal femur. Oscillating saw was used to make the distal femoral cut. The external rotation guide was pinned down the distal femur and the distal femur was sized to a size 6. Size 6 multi- cutting jig was pinned on the distal femur. Oscillating saw was used to make the appropriate 4 chamfer cuts. PCL was completely released. The tibia was subluxed anteriorly. Extramedullary proximal tibial cutting guide was pinned down the proximal tibia. The oscillating saw was used to make proximal tibial cut perpendicular to the mechanical axis of the tibia. The bone was carefully removed. The knee was brought out into full extension. A spacer block had good fit with medial and lateral ligamentous balancing. Flexion and extension gaps were well balanced. The knee was flexed up. The [facility] manager was placed both medially and laterally. Any remaining meniscus was carefully removed using electrocautery. Curved osteotome was used to remove posterior osteophytes. Tibial tray and drop seble were placed and once again confirmed a satisfactory tibial cut. A size 6 narrow left femoral trial was impacted on to the distal femur and had good fit. The box for the posterior stabilized implant was prepared using a reamer and box cut osteotome. A size 5 tibial tray trial with a 9-mm insert trial was placed, and the knee was taken through range of motion. The knee had full extension to 120 degrees of flexion. Patellofemoral tracking was satisfactory. The patella was everted. A 9 mm of patellar bone and cartilage was carefully removed using an oscillating saw. The patella was sized to a size 32. The 3 peg holes were drilled through the size 32 guide. A trial 32 patella was placed. The knee was taken through range of motion. There was satisfactory patellofemoral tracking. All trials were carefully removed. The tibia was subluxed anteriorly and sized to a size 5. Proximal tibia was prepared using a size 5 keel punch. All bony cut surfaces were copiously irrigated with sterile saline. Final implants chosen. The bone was carefully dried. Final implants were cemented into place starting with the tibia followed by the femur and last the patella. A 9-mm insert trial was placed and the knee was brought out into full extension. The tourniquet was turned down at 57 minutes. The knee was copiously irrigated with sterile saline. Electrocautery was used to obtain meticulous hemostasis. Once the cement had fully cured, the insert trial was removed. Any excess cement was removed from around the capsule and hardware. Final insert chosen was a 9-mm posterior stabilized articular insert, size 5-6. This was locked into position on the tibial tray. Stability of the insert was checked and rechecked and noted to be stable. The extensor mechanism was closed over a median Hemovac drain using interrupted #1 Vicryl. The rest of the incision was closed in a layered fashion using 0 and 2-0 Vicryl. The skin was closed using running 3-0 nylon suture. Sterile Xeroform, 4x4's, and Webril were used to cover the incision. Riky wrap and cold pack were placed over this. The patient' s anesthesia was reversed without difficulty. She was taken to the PACU in stable condition. Intended weightbearing will be weightbearing as tolerated. Intended DVT prophylaxis will be Coumadin with a Lovenox bridge. [id number]/[facility] #: [id number] [facility]ENTERCorinne
[2017-05-13] MEDS: oxyCODONE/Acetamin 5/325 MG* TAB PO PRN ×5 (00:17→22:11)
[2017-05-13 06:19] LABS: Hematocrit 30 % (35-47); Hemoglobin 10.2 g/dl (12.0-16.0); Mean Platelet Volume 8 um3 (7.4-10.4); Platelet Count 172 10^3/ul (150-450)
[2017-05-13 06:37] LABS: INR 0.98 (0.77-1.02)
[2017-05-13] MEDS: Insulin LISPRO* 1 UNITS UNIT SUBCUT SCH ×4 (08:09→22:11)
[2017-05-13] MEDS: Citalopram TAB* 20 MG PO SCH (08:36)
[2017-05-13] MEDS: Magnesium Oxide TAB* 400 MG PO SCH (08:36)
[2017-05-13] MEDS: Oxybutynin TAB* 5 MG PO SCH (08:36)
[2017-05-13] MEDS: Magnesium Hydroxide LIQ* 30 ML UDC PO SCH ×2 (08:36→22:22)
[2017-05-13] MEDS: Docusate CAP* 100 MG PO SCH ×2 (08:36→22:22)
[2017-05-13] MEDS: Metoprolol Tartrate TAB* 100 MG TAB PO SCH (08:36)
[2017-05-13] MEDS: oxyCODONE TAB* 5 MG TAB PO PRN (09:53)
--- NOTE | 2017-05-13 12:08 | PN ---
Progress Note - Progress Note Date of Service: 05/13/17 SOAP: Subjective: []Patient seen at bedside. She was able to get out of bed assisted with relative comfort this morning. Left knee pain is well controlled. Denies CP, SOB , fever, chills. Objective: [] Vital Signs Temp 98.8 F 05/13/17 11:52 Pulse 84 05/13/17 11:52 Resp 16 05/13/17 11:52 BP 114/61 05/13/17 11:52 Pulse Ox 96 05/13/17 11:52 Intake & Output 05/12/17 05/13/17 05/13/17 18:59 06:59 18:59 Intake Total 1487 580 180 Output Total 300 600 400 Balance 1187 -20 -220 Intake: IV Fluids 1287 ABX - CEFAZOLIN 50 IVIG 571 LR 666 Oral 200 580 180 Output: Urine 300 600 400 Other: # Bowel Movements 1 Estimated Stool Amount Large Laboratory Last Values Hgb 10.2 g/dl (12.0-16.0) L 05/13/17 05:06 Hct 30 % (35-47) L 05/13/17 05:06 Plt Count 172 10^3/ul (150-450) 05/13/17 05:06 MPV 8 um3 (7.4-10.4) 05/13/17 05:06 INR (Anticoag Therapy) 0.98 (0.77-1.02) 05/13/17 05:06 Sodium 134 mmol/L (133-145) 05/12/17 05:55 Potassium 4.3 mmol/L (3.5-5.0) 05/12/17 05:55 Chloride 101 mmol/L (101-111) 05/12/17 05:55 Carbon Dioxide 27 mmol/L (22-32) 05/12/17 05:55 Anion Gap 6 mmol/L (2-11) 05/12/17 05:55 BUN 15 mg/dL (6-24) 05/12/17 05:55 Creatinine 0.60 mg/dL (0.51-0.95) 05/12/17 05:55 Est GFR ( Amer) 132.1 (>60) 05/12/17 05:55 Est GFR (Non-Af Amer) 102.7 (>60) 05/12/17 05:55 BUN/Creatinine Ratio 25.0 (8-20) H 05/12/17 05:55 Glucose 142 mg/dL (70-100) H 05/12/17 05:55 POC Glucose (mg/dL) 161 mg/dL (70-100) H 05/13/17 07:11 Calcium 8.8 mg/dL (8.6-10.3) 05/12/17 05:55 General: Well appearing, NAD. LLE: dressing CDI without surrounding erythema. Dressing was changed by Dr Hidalgo this morning without complication. DF/PF intact. PT pulse 2+.Sensation intact distally. BL LE: Calves supple and nontender without erythema, edema or palpable cords. Assessment: []POD 2 sp Left total knee 05/11 Dr Hidalgo Plan: []WBAT PT/OT lovenox only in house, plavix home dose at ri PMRU consult in, otherwise rehab facility tomorrow
[2017-05-13] MEDS: Losartan TAB* 25 MG PO SCH (12:15)
[2017-05-13] MEDS: Enoxaparin(*) 30 MG/0.3 ML SYR SUBCUT SCH (12:16)
--- NOTE | 2017-05-13 16:28 | PN ---
Subjective Date of Service: 05/13/17 Interval History: Walked with PT today. Feels much better , but concerned about going home without any support Objective Active Medications: Acetaminophen (Tylenol Tab*) 650 mg PO Q4H PRN PRN Reason: PAIN OR TEMPERATURE Bisacodyl (Dulcolax Supp*) 10 mg [place] DAILY PRN PRN Reason: constipation Citalopram Hydrobromide (Celexa Tab*) 20 mg PO QAM [facility] Last Admin: 05/13/17 08:36 Dose: 20 mg Cyclobenzaprine HCl (Flexeril Tab*) 10 mg PO TID PRN PRN Reason: SPASMS Dextrose (D50w Syringe 50 Ml*) 12.5 gm IV PUSH .FOR FS < 60 - SS PRN PRN Reason: FS < 60 Diphenhydramine HCl (Benadryl Liq*) 12.5 mg PO Q6H PRN PRN Reason: itching Docusate Sodium (Colace Cap*) 100 mg PO BID [facility] Last Admin: 05/13/17 08:36 Dose: 100 mg Enoxaparin Sodium (Lovenox(*)) 30 mg SUBCUT Q24H [facility] Last Admin: 05/13/17 12:16 Dose: 30 mg Insulin Human Lispro (Humalog*) 0 units SUBCUT ACHS [facility] PRN Reason: Protocol Last Admin: 05/13/17 13:00 Dose: 1 units Lactulose (Lactulose*) 30 ml PO Q6H PRN PRN Reason: constipation Last Admin: 05/13/17 08:35 Dose: 30 ml Losartan Potassium (Cozaar Tab*) 100 mg PO DAILY [facility] Last Admin: 05/13/17 12:15 Dose: 100 mg Magnesium Hydroxide (Milk Of Magnesia Liq*) 30 ml PO BID [facility] Last Admin: 05/13/17 08:36 Dose: Not Given Magnesium Hydroxide (Milk Of Magnesia Liq*) 30 ml PO Q6H PRN PRN Reason: constipation Magnesium Oxide (Magox 400 Tab*) 400 mg PO QAM [facility] Last Admin: 05/13/17 08:36 Dose: 400 mg Metoprolol Tartrate (Lopressor Tab*) 100 mg PO QAM [facility] Last Admin: 05/13/17 08:36 Dose: 100 mg Morphine Sulfate (Morphine Inj (Syringe)*) 2 mg IV Q2H PRN PRN Reason: PAIN Ondansetron HCl (Zofran Inj*) 4 mg IV Q6H PRN PRN Reason: nausea Ondansetron HCl (Zofran Tab*) 4 mg PO Q6H PRN PRN Reason: NAUSEA Oxybutynin Chloride (Ditropan Tab*) 5 mg PO QAM [facility] Last Admin: 05/13/17 08:36 Dose: 5 mg Oxycodone HCl (Roxycodone Tab*) 10 mg PO Q4H PRN PRN Reason: SEVERE PAIN Last Admin: 05/13/17 09:53 Dose: 10 mg Oxycodone/Acetaminophen (Percocet 5/325 Tab*) 2 tab PO Q4H PRN PRN Reason: PAIN Last Admin: 05/13/17 13:01 Dose: 2 tab Oxycodone/Acetaminophen (Percocet 5/325 Tab*) 1 tab PO Q4H PRN PRN Reason: PAIN Polyethylene Glycol/Electrolytes (Miralax*) 17 gm PO DAILY PRN PRN Reason: Constipation Vital Signs - 8 hr 05/13/17 05/13/17 05/13/17 08:35 09:53 11:52 Temperature 98.8 F Pulse Rate 84 Respiratory 18 18 16 Rate Blood Pressure 114/61 (mmHg) O2 Sat by Pulse 96 Oximetry 05/13/17 05/13/17 05/13/17 12:15 13:01 13:32 Temperature Pulse Rate Respiratory 16 16 Rate Blood Pressure (mmHg) O2 Sat by Pulse 96 Oximetry 05/13/17 05/13/17 16:00 16:17 Temperature 98.0 F Pulse Rate 88 Respiratory 16 Rate Blood Pressure 103/54 (mmHg) O2 Sat by Pulse 95 95 Oximetry Oxygen Devices in Use Now: None Appearance: 56 yo f in nAD, AAOx3 Eyes: No Scleral Icterus, PERRLA Ears/Nose/Mouth/Throat: NL Teeth, Lips, Gums, Mucous Membranes Moist Neck: NL Appearance and Movements; NL JVP, Trachea Midline Respiratory: Symmetrical Chest Expansion and Respiratory Effort, Clear to Auscultation Cardiovascular: NL Sounds; No Murmurs; No JVD, RRR Abdominal: NL Sounds; No Tenderness; No Distention Lymphatic: No Cervical Adenopathy Extremities: No Clubbing, Cyanosis, - - trace pedal edema L>R, left knee post op dressings not removed Skin: No Rash or Ulcers, No Nodules or Sclerosis Neurological: Alert and Oriented x 3, - - left sided weakness and flattening of left nasolabial fold unchanged Result Diagrams: 05/13/17 05:06 05/12/17 05:55 Assess/Plan/Problems-Billing Assessment: 56 yo F with h/o ischemic CVA and left sided weakness, HTN, DM, dyslipidemia , s/p elective left knee surgery - Patient Problems (1) Total knee replacement status Comment: s/p TKR on 05/11/17, as per Dr. Hidalgo (2) CVA (cerebral vascular accident) Comment: Ischemic, with residual left sided weakness. ASA and Plavix to be restarted as soon as OK per surgery (3) DM type 2 (diabetes mellitus, type 2) Comment: holding metformin . BG in 140-160 range cont ISS (4) HTN (hypertension) Comment: Controlled on metorpolol, will restart losartan. cont to hold Norvasc (5) Postoperative anemia due to acute blood loss Comment: Hb down to 10 -as expected post op, stable (6) DVT prophylaxis Comment: lovenox Status and Disposition: Medicine consult
[2017-05-13] MEDS: Aspirin EC Low Dose* 81 MG TAB.EC PO SCH (17:45)
[2017-05-14 06:01] LABS: Hematocrit 28 % (35-47); Hemoglobin 9.5 g/dl (12.0-16.0); Mean Platelet Volume 8 um3 (7.4-10.4); Platelet Count 163 10^3/ul (150-450)
[2017-05-14 06:08] LABS: INR 0.98 (0.77-1.02)
[2017-05-14] MEDS: oxyCODONE/Acetamin 5/325 MG* TAB PO PRN ×4 (06:12→22:11)
[2017-05-14] MEDS: Docusate CAP* 100 MG PO SCH ×2 (08:19→22:11)
[2017-05-14] MEDS: Magnesium Hydroxide LIQ* 30 ML UDC PO SCH ×2 (08:19→22:12)
[2017-05-14] MEDS: Insulin LISPRO* 1 UNITS UNIT SUBCUT SCH ×4 (09:05→21:13)
[2017-05-14] MEDS: Metoprolol Tartrate TAB* 100 MG TAB PO SCH (09:05)
[2017-05-14] MEDS: Losartan TAB* 25 MG PO SCH (09:05)
[2017-05-14] MEDS: Citalopram TAB* 20 MG PO SCH (09:05)
[2017-05-14] MEDS: Magnesium Oxide TAB* 400 MG PO SCH (09:05)
[2017-05-14] MEDS: Clopidogrel TAB* 75 MG PO SCH (09:05)
[2017-05-14] MEDS: Aspirin EC Low Dose* 81 MG TAB.EC PO SCH (09:05)
[2017-05-14] MEDS: Oxybutynin TAB* 5 MG PO SCH (09:05)
[2017-05-14] MEDS: Enoxaparin(*) 30 MG/0.3 ML SYR SUBCUT SCH (12:41)
--- NOTE | 2017-05-14 14:32 | PN ---
Progress Note - Progress Note Date of Service: 05/14/17 SOAP: Subjective: 56 yo female po day 3 s/p Left TKA with Dr. Hidalgo. Seen OOB in chair, sitting comfortably. Pain has been well controlled. Denies CP, SOB, N/V, dizziness, chills/fevers. Objective: Vital Signs Temp 98.4 F 05/14/17 11:25 Pulse 78 05/14/17 11:25 Resp 16 05/14/17 13:19 BP 94/45 05/14/17 11:25 Pulse Ox 95 05/14/17 11:25 Intake & Output 05/13/17 05/14/17 05/14/17 18:59 06:59 18:59 Intake Total 1020 0 840 Output Total 850 632 4748 Balance 620 -300 -260 Intake: Oral 1020 0 840 Output: Urine 686 170 0524 Other: # Bowel Movements 1 Estimated Stool Amount Large Laboratory Results - last 24 hr 05/13/17 05/13/17 05/14/17 16:59 21:57 05:23 Hgb 9.5 L Hct 28 L Plt Count 163 MPV 8 INR (Anticoag Therapy) POC Glucose (mg/dL) 123 H 167 H 05/14/17 05/14/17 05/14/17 05:23 08:15 12:41 Hgb Hct Plt Count MPV INR (Anticoag Therapy) 0.98 POC Glucose (mg/dL) 149 H 113 H General: WN, WD, NAD, A&Ox3, sitting comfortably in chair. Normal mood and affect. LLE: Dressing C/D/I, incision C/D/I. Some crepitation in subcutaneous tissue lateral to incision. Increased pain at this point. No erythema, warmth, drainage. Able to DF and PF ankle, move toes. 2+ DP pulses. Sensation intact distally. Calf and thigh soft with no palpable cords or erythema. Assessment: POD 3 S/P Left TKA with Dr. Hidalgo. Stable. Plan: 1. Continue Lovenox while inpatient, plan to d/c on Plavix 2. Continue PT/OT 3. WBAT 4. Plan to discharge to acute rehab facility, she was declined at [facility] floor, accepted at [place], waiting on [place] at [facility]. If going to [place] will be discharged on Wednesday.
--- NOTE | 2017-05-14 16:06 | PN ---
Subjective Date of Service: 05/14/17 Interval History: pt feels well, continues PT. Was declined for admission to [facility]. Awaiting STR in [place] on Wednesday. Objective Active Medications: Acetaminophen (Tylenol Tab*) 650 mg PO Q4H PRN PRN Reason: PAIN OR TEMPERATURE Aspirin ([facility] Ec Low Dose*) [facility] Last Admin: 05/14/17 09:05 Dose: 81 mg Bisacodyl (Dulcolax Supp*) 10 mg [place] DAILY PRN PRN Reason: constipation Citalopram Hydrobromide (Celexa Tab*) 20 mg PO [facility] Last Admin: 05/14/17 09:05 Dose: 20 mg Clopidogrel Bisulfate (Plavix Tab*) 75 mg PO [facility] Last Admin: 05/14/17 09:05 Dose: 75 mg Cyclobenzaprine HCl (Flexeril Tab*) 10 mg PO TID PRN PRN Reason: SPASMS Dextrose (D50w Syringe 50 Ml*) 12.5 gm IV PUSH .FOR FS < 60 - SS PRN PRN Reason: FS < 60 Diphenhydramine HCl (Benadryl Liq*) 12.5 mg PO Q6H PRN PRN Reason: itching Docusate Sodium (Colace Cap*) 100 mg PO BID [facility] Last Admin: 05/14/17 08:19 Dose: Not Given Enoxaparin Sodium (Lovenox(*)) 30 mg SUBCUT Q24H [facility] Last Admin: 05/14/17 12:41 Dose: 30 mg Insulin Human Lispro (Humalog*) 0 units SUBCUT ACHS [facility] PRN Reason: Protocol Last Admin: 05/14/17 12:43 Dose: Not Given Lactulose (Lactulose*) 30 ml PO Q6H PRN PRN Reason: constipation Last Admin: 05/13/17 08:35 Dose: 30 ml Losartan Potassium (Cozaar Tab*) 100 mg PO DAILY [facility] Last Admin: 05/14/17 09:05 Dose: 100 mg Magnesium Hydroxide (Milk Of Magnesia Liq*) 30 ml PO BID [facility] Last Admin: 05/14/17 08:19 Dose: Not Given Magnesium Hydroxide (Milk Of Magnesia Liq*) 30 ml PO Q6H PRN PRN Reason: constipation Magnesium Oxide (Magox 400 Tab*) 400 mg PO [facility] Last Admin: 05/14/17 09:05 Dose: 400 mg Metoprolol Tartrate (Lopressor Tab*) 100 mg PO [facility] Last Admin: 05/14/17 09:05 Dose: 100 mg Morphine Sulfate (Morphine Inj (Syringe)*) 2 mg IV Q2H PRN PRN Reason: PAIN Ondansetron HCl (Zofran Inj*) 4 mg IV Q6H PRN PRN Reason: nausea Ondansetron HCl (Zofran Tab*) 4 mg PO Q6H PRN PRN Reason: NAUSEA Oxybutynin Chloride (Ditropan Tab*) 5 mg PO [facility] Last Admin: 05/14/17 09:05 Dose: 5 mg Oxycodone HCl (Roxycodone Tab*) 10 mg PO Q4H PRN PRN Reason: SEVERE PAIN Last Admin: 05/13/17 09:53 Dose: 10 mg Oxycodone/Acetaminophen (Percocet 5/325 Tab*) 2 tab PO Q4H PRN PRN Reason: PAIN Last Admin: 05/14/17 13:19 Dose: 2 tab Oxycodone/Acetaminophen (Percocet 5/325 Tab*) 1 tab PO Q4H PRN PRN Reason: PAIN Polyethylene Glycol/Electrolytes (Miralax*) 17 gm PO DAILY PRN PRN Reason: Constipation Vital Signs - 8 hr 05/14/17 05/14/17 05/14/17 08:20 08:31 11:25 Temperature 97.9 F 98.4 F Pulse Rate 107 78 Respiratory 18 16 16 Rate Blood Pressure 135/66 94/45 (mmHg) O2 Sat by Pulse 95 96 95 Oximetry 05/14/17 05/14/17 05/14/17 12:43 13:19 15:30 Temperature 99.4 F Pulse Rate 83 Respiratory 16 16 16 Rate Blood Pressure 100/58 (mmHg) O2 Sat by Pulse 94 Oximetry Oxygen Devices in Use Now: None Appearance: 56 yo F in nAD, AAOx3 Eyes: No Scleral Icterus, PERRLA Ears/Nose/Mouth/Throat: NL Teeth, Lips, Gums, Mucous Membranes Moist Neck: NL Appearance and Movements; NL JVP, Trachea Midline Respiratory: Symmetrical Chest Expansion and Respiratory Effort, Clear to Auscultation Cardiovascular: NL Sounds; No Murmurs; No JVD, RRR Abdominal: NL Sounds; No Tenderness; No Distention, No Hepatosplenomegaly Lymphatic: No Cervical Adenopathy Extremities: No Edema, No Clubbing, Cyanosis Skin: No Nodules or Sclerosis, - - ysabel knee in postop dressings not inspected Neurological: Alert and Oriented x 3, - - left sided weakness and slight flattening on left nasolabial fold at baseline Result Diagrams: 05/14/17 05:23 05/12/17 05:55 Assess/Plan/Problems-Billing Assessment: 56 yo F with h/o ischemic CVA and left sided weakness, HTN, DM, dyslipidemia , s/p elective left knee surgery - Patient Problems (1) Total knee replacement status Comment: s/p TKR on 05/11/17, as per Dr. Hidalgo (2) CVA (cerebral vascular accident) Comment: Ischemic, with residual left sided weakness. On ASA and Plavix (3) DM type 2 (diabetes mellitus, type 2) Comment: holding metformin . BG in 112-160 range cont ISS (4) HTN (hypertension) Comment: Controlled on metorpolol and losartan. cont to hold Norvasc (5) Postoperative anemia due to acute blood loss Comment: Hb down -as expected post op (6) DVT prophylaxis Comment: lovenox Status and Disposition: Medicine consult
[2017-05-15] MEDS: oxyCODONE/Acetamin 5/325 MG* TAB PO PRN ×4 (05:00→19:49)
[2017-05-15 05:44] LABS: Hematocrit 28 % (35-47); Hemoglobin 9.5 g/dl (12.0-16.0); Mean Platelet Volume 8 um3 (7.4-10.4); Platelet Count 198 10^3/ul (150-450)
[2017-05-15 05:57] LABS: INR 0.98 (0.77-1.02)
[2017-05-15] MEDS: Insulin LISPRO* 1 UNITS UNIT SUBCUT SCH ×4 (08:03→22:39)
[2017-05-15] MEDS: Docusate CAP* 100 MG PO SCH ×2 (08:04→22:39)
[2017-05-15] MEDS: Metoprolol Tartrate TAB* 100 MG TAB PO SCH (08:04)
[2017-05-15] MEDS: Citalopram TAB* 20 MG PO SCH (08:05)
[2017-05-15] MEDS: Clopidogrel TAB* 75 MG PO SCH (08:05)
[2017-05-15] MEDS: Oxybutynin TAB* 5 MG PO SCH (08:05)
[2017-05-15] MEDS: Aspirin EC Low Dose* 81 MG TAB.EC PO SCH (08:05)
[2017-05-15] MEDS: Losartan TAB* 25 MG PO SCH (08:05)
[2017-05-15] MEDS: Magnesium Oxide TAB* 400 MG PO SCH (08:08)
--- NOTE | 2017-05-15 08:58 | PN ---
Subjective Date of Service: 05/15/17 Interval History: Pt feels well, just did PT. No constipation. Objective Active Medications: Acetaminophen (Tylenol Tab*) 650 mg PO Q4H PRN PRN Reason: PAIN OR TEMPERATURE Aspirin (Aspirin Ec Low Dose*) 81 mg PO [facility] Last Admin: 05/15/17 08:05 Dose: 81 mg Bisacodyl (Dulcolax Supp*) 10 mg [place] DAILY PRN PRN Reason: constipation Citalopram Hydrobromide (Celexa Tab*) 20 mg PO [facility] Last Admin: 05/15/17 08:05 Dose: 20 mg Clopidogrel Bisulfate (Plavix Tab*) 75 mg PO [facility] Last Admin: 05/15/17 08:05 Dose: 75 mg Cyclobenzaprine HCl (Flexeril Tab*) 10 mg PO TID PRN PRN Reason: SPASMS Dextrose (D50w Syringe 50 Ml*) 12.5 gm IV PUSH .FOR FS < 60 - SS PRN PRN Reason: FS < 60 Diphenhydramine HCl (Benadryl Liq*) 12.5 mg PO Q6H PRN PRN Reason: itching Docusate Sodium (Colace Cap*) 100 mg PO BID [facility] Last Admin: 05/15/17 08:04 Dose: 100 mg Enoxaparin Sodium (Lovenox(*)) 30 mg SUBCUT Q24H [facility] Last Admin: 05/14/17 12:41 Dose: 30 mg Insulin Human Lispro (Humalog*) 0 units SUBCUT ACHS [facility] PRN Reason: Protocol Last Admin: 05/15/17 08:03 Dose: 1 units Lactulose (Lactulose*) 30 ml PO Q6H PRN PRN Reason: constipation Last Admin: 05/13/17 08:35 Dose: 30 ml Losartan Potassium (Cozaar Tab*) 100 mg PO DAILY [facility] Last Admin: 05/15/17 08:05 Dose: 100 mg Magnesium Hydroxide (Milk Of Magnesia Liq*) 30 ml PO Q6H PRN PRN Reason: constipation Magnesium Oxide (Magox 400 Tab*) 400 mg PO [facility] Last Admin: 05/15/17 08:08 Dose: 400 mg Metoprolol Tartrate (Lopressor Tab*) 100 mg PO [facility] Last Admin: 05/15/17 08:04 Dose: 100 mg Morphine Sulfate (Morphine Inj (Syringe)*) 2 mg IV Q2H PRN PRN Reason: PAIN Ondansetron HCl (Zofran Inj*) 4 mg IV Q6H PRN PRN Reason: nausea Ondansetron HCl (Zofran Tab*) 4 mg PO Q6H PRN PRN Reason: NAUSEA Oxybutynin Chloride (Ditropan Tab*) 5 mg PO QAM [facility] Last Admin: 05/15/17 08:05 Dose: 5 mg Oxycodone HCl (Roxycodone Tab*) 10 mg PO Q4H PRN PRN Reason: SEVERE PAIN Last Admin: 05/13/17 09:53 Dose: 10 mg Oxycodone/Acetaminophen (Percocet 5/325 Tab*) 2 tab PO Q4H PRN PRN Reason: PAIN Last Admin: 05/15/17 05:00 Dose: 2 tab Oxycodone/Acetaminophen (Percocet 5/325 Tab*) 1 tab PO Q4H PRN PRN Reason: PAIN Polyethylene Glycol/Electrolytes (Miralax*) 17 gm PO DAILY PRN PRN Reason: Constipation Vital Signs - 8 hr 05/15/17 05/15/17 05/15/17 01:05 04:45 05:00 Temperature 98.2 F 97.7 F Pulse Rate 87 83 Respiratory 16 16 16 Rate Blood Pressure 129/67 112/62 (mmHg) O2 Sat by Pulse 97 96 Oximetry 05/15/17 05/15/17 07:20 08:03 Temperature 97.9 F Pulse Rate 89 Respiratory 14 18 Rate Blood Pressure 123/59 (mmHg) O2 Sat by Pulse 97 Oximetry Oxygen Devices in Use Now: None Appearance: 56 yo F in nAD, AAOx3 Eyes: No Scleral Icterus, PERRLA Ears/Nose/Mouth/Throat: NL Teeth, Lips, Gums, Mucous Membranes Moist Neck: NL Appearance and Movements; NL JVP, Trachea Midline Respiratory: Symmetrical Chest Expansion and Respiratory Effort, Clear to Auscultation Cardiovascular: NL Sounds; No Murmurs; No JVD, RRR Abdominal: NL Sounds; No Tenderness; No Distention, No Hepatosplenomegaly Lymphatic: No Cervical Adenopathy Extremities: No Clubbing, Cyanosis, - - left knee in cryo unit and post op dressing-not removed Skin: No Rash or Ulcers, No Nodules or Sclerosis Neurological: Alert and Oriented x 3, NL Muscle Strength and Tone Result Diagrams: 05/15/17 05:20 05/12/17 05:55 Assess/Plan/Problems-Billing Assessment: 56 yo F with h/o ischemic CVA and left sided weakness, HTN, DM, dyslipidemia , s/p elective left knee surgery - Patient Problems (1) Total knee replacement status Comment: s/p TKR on 05/11/17, as per Dr. Hidalgo (2) CVA (cerebral vascular accident) Comment: Ischemic, with residual left sided weakness. On ASA and Plavix (3) DM type 2 (diabetes mellitus, type 2) Comment: holding metformin . BG in 112-160 range cont ISS (4) HTN (hypertension) Comment: Controlled on metorpolol and losartan. cont to hold Norvasc (5) Postoperative anemia due to acute blood loss Comment: Hb down to 9.5 ans stable -as expected post op (6) DVT prophylaxis Comment: lovenox Status and Disposition: Medicine consult, plan to STR [facility] on Wednesday
[2017-05-15] MEDS: Enoxaparin(*) 30 MG/0.3 ML SYR SUBCUT SCH (12:39)
[2017-05-16] MEDS: oxyCODONE/Acetamin 5/325 MG* TAB PO PRN ×4 (03:36→16:28)
[2017-05-16 05:36] LABS: Hematocrit 27 % (35-47); Hemoglobin 9.2 g/dl (12.0-16.0); Mean Platelet Volume 7 um3 (7.4-10.4); Platelet Count 222 10^3/ul (150-450)
[2017-05-16] MEDS: Insulin LISPRO* 1 UNITS UNIT SUBCUT SCH ×4 (07:50→20:28)
[2017-05-16] MEDS: Docusate CAP* 100 MG PO SCH ×2 (08:44→20:17)
[2017-05-16] MEDS: Magnesium Oxide TAB* 400 MG PO SCH (08:44)
[2017-05-16] MEDS: Aspirin EC Low Dose* 81 MG TAB.EC PO SCH (08:44)
[2017-05-16] MEDS: Clopidogrel TAB* 75 MG PO SCH (08:44)
[2017-05-16] MEDS: Losartan TAB* 25 MG PO SCH (08:44)
[2017-05-16] MEDS: Oxybutynin TAB* 5 MG PO SCH (08:44)
[2017-05-16] MEDS: Metoprolol Tartrate TAB* 100 MG TAB PO SCH (08:44)
[2017-05-16] MEDS: Citalopram TAB* 20 MG PO SCH (08:44)
--- NOTE | 2017-05-16 09:51 | PN ---
Subjective Date of Service: 05/16/17 Interval History: P feels well and stronger every day Objective Active Medications: Acetaminophen (Tylenol Tab*) 650 mg PO Q4H PRN PRN Reason: PAIN OR TEMPERATURE Aspirin (Aspirin Ec Low Dose*) 81 mg PO [facility] Last Admin: 05/16/17 08:44 Dose: 81 mg Bisacodyl (Dulcolax Supp*) 10 mg [place] DAILY PRN PRN Reason: constipation Citalopram Hydrobromide (Celexa Tab*) 20 mg PO [facility] Last Admin: 05/16/17 08:44 Dose: 20 mg Clopidogrel Bisulfate (Plavix Tab*) 75 mg PO [facility] Last Admin: 05/16/17 08:44 Dose: 75 mg Cyclobenzaprine HCl (Flexeril Tab*) 10 mg PO TID PRN PRN Reason: SPASMS Dextrose (D50w Syringe 50 Ml*) 12.5 gm IV PUSH .FOR FS < 60 - SS PRN PRN Reason: FS < 60 Diphenhydramine HCl (Benadryl Liq*) 12.5 mg PO Q6H PRN PRN Reason: itching Docusate Sodium (Colace Cap*) 100 mg PO BID [facility] Last Admin: 05/16/17 08:44 Dose: 100 mg Enoxaparin Sodium (Lovenox(*)) 30 mg SUBCUT Q24H [facility] Last Admin: 05/15/17 12:39 Dose: 30 mg Insulin Human Lispro (Humalog*) 0 units SUBCUT ACHS [facility] PRN Reason: Protocol Last Admin: 05/16/17 07:50 Dose: Not Given Lactulose (Lactulose*) 30 ml PO Q6H PRN PRN Reason: constipation Last Admin: 05/13/17 08:35 Dose: 30 ml Losartan Potassium (Cozaar Tab*) 100 mg PO DAILY [facility] Last Admin: 05/16/17 08:44 Dose: 100 mg Magnesium Hydroxide (Milk Of Magnesia Liq*) 30 ml PO Q6H PRN PRN Reason: constipation Last Admin: 05/15/17 22:39 Dose: 30 ml Magnesium Oxide (Magox 400 Tab*) 400 mg PO [facility] Last Admin: 05/16/17 08:44 Dose: 400 mg Metoprolol Tartrate (Lopressor Tab*) 100 mg PO [facility] Last Admin: 05/16/17 08:44 Dose: 100 mg Morphine Sulfate (Morphine Inj (Syringe)*) 2 mg IV Q2H PRN PRN Reason: PAIN Ondansetron HCl (Zofran Inj*) 4 mg IV Q6H PRN PRN Reason: nausea Ondansetron HCl (Zofran Tab*) 4 mg PO Q6H PRN PRN Reason: NAUSEA Oxybutynin Chloride (Ditropan Tab*) 5 mg PO [facility] Last Admin: 05/16/17 08:44 Dose: 5 mg Oxycodone HCl (Roxycodone Tab*) 10 mg PO Q4H PRN PRN Reason: SEVERE PAIN Last Admin: 05/13/17 09:53 Dose: 10 mg Oxycodone/Acetaminophen (Percocet 5/325 Tab*) 2 tab PO Q4H PRN PRN Reason: PAIN Last Admin: 05/16/17 08:45 Dose: 2 tab Oxycodone/Acetaminophen (Percocet 5/325 Tab*) 1 tab PO Q4H PRN PRN Reason: PAIN Polyethylene Glycol/Electrolytes (Miralax*) 17 gm PO DAILY PRN PRN Reason: Constipation Vital Signs - 8 hr 05/16/17 05/16/17 05/16/17 03:42 04:00 07:33 Temperature 97.8 F Pulse Rate 90 Respiratory 20 18 18 Rate Blood Pressure 142/70 (mmHg) O2 Sat by Pulse 96 Oximetry 05/16/17 05/16/17 07:45 08:45 Temperature 98.7 F Pulse Rate 80 Respiratory 17 20 Rate Blood Pressure 148/80 (mmHg) O2 Sat by Pulse 99 Oximetry Oxygen Devices in Use Now: None Appearance: 56 yo f in nAD, aAOx3 Eyes: No Scleral Icterus, PERRLA Ears/Nose/Mouth/Throat: NL Teeth, Lips, Gums, Mucous Membranes Moist Neck: NL Appearance and Movements; NL JVP, Trachea Midline Respiratory: Symmetrical Chest Expansion and Respiratory Effort, Clear to Auscultation Cardiovascular: NL Sounds; No Murmurs; No JVD, RRR Abdominal: NL Sounds; No Tenderness; No Distention Lymphatic: No Cervical Adenopathy Extremities: No Clubbing, Cyanosis, - - trace L ankle edema , L knee post op dresssings not removed Skin: No Rash or Ulcers, No Nodules or Sclerosis Neurological: Alert and Oriented x 3, - - left sided weakness-unchanged Result Diagrams: 05/16/17 05:14 05/12/17 05:55 Assess/Plan/Problems-Billing Assessment: 56 yo F with h/o ischemic CVA and left sided weakness, HTN, DM, dyslipidemia , s/p elective left knee surgery - Patient Problems (1) Total knee replacement status Comment: s/p TKR on 05/11/17, as per Dr. Hidalgo (2) CVA (cerebral vascular accident) Comment: Ischemic, with residual left sided weakness. On ASA and Plavix (3) DM type 2 (diabetes mellitus, type 2) Comment: holding metformin . BG in 112-160 range cont ISS (4) HTN (hypertension) Comment: On metorpolol and losartan. cont to hold Norvasc SBP in 140's -may neeed to restart Norvasc if continues to be high (5) Postoperative anemia due to acute blood loss Comment: Hb down to 9 and stable -as expected post op (6) DVT prophylaxis Comment: lovenox Status and Disposition: Medicine consult, plan to STR [facility] on Wednesday
--- NOTE | 2017-05-16 10:35 | PN ---
Progress Note - Progress Note Date of Service: 05/16/17 SOAP: Subjective: POD #5 Left TKA, doing well. Awaiting transfer to [facility] tomorrow. Denies CP/ SOB, calf pain, f/c. Objective: Vitals: Temp Pulse Resp BP Pulse Ox 98.7 F 80 20 148/80 99 05/16/17 07:45 05/16/17 07:45 05/16/17 08:45 05/16/17 07:45 05/16/17 07:45 Gen: A&Ox3, NAD at rest LLE: Dressing C/D/I, +f/e at ankle and MTPs. N/V intact Labs: Laboratory Results - last 24 hr 05/14/17 05/15/17 05/15/17 21:12 12:36 17:15 Hgb Hct Plt Count MPV POC Glucose (mg/dL) 114 H 111 H 113 H 05/15/17 05/16/17 05/16/17 22:29 05:14 07:35 Hgb 9.2 L Hct 27 L Plt Count 222 MPV 7 L POC Glucose (mg/dL) 134 H 129 H Assessment: POD #5 Left TKA Plan: Transfer to [facility] tomorrow Cont Plavix for dvt ppx Cont PT/OT
[2017-05-16] MEDS: Enoxaparin(*) 30 MG/0.3 ML SYR SUBCUT SCH (12:13)
[2017-05-16] MEDS: oxyCODONE TAB* 5 MG TAB PO PRN (20:29)
[2017-05-17] MEDS: oxyCODONE/Acetamin 5/325 MG* TAB PO PRN ×2 (06:59→11:45)
[2017-05-17] MEDS: oxyCODONE TAB* 5 MG TAB PO PRN (08:55)
[2017-05-17] MEDS: Insulin LISPRO* 1 UNITS UNIT SUBCUT SCH (08:55)
[2017-05-17] MEDS: Docusate CAP* 100 MG PO SCH (08:56)
[2017-05-17] MEDS: Magnesium Oxide TAB* 400 MG PO SCH (08:56)
[2017-05-17] MEDS: Aspirin EC Low Dose* 81 MG TAB.EC PO SCH (08:56)
[2017-05-17] MEDS: Clopidogrel TAB* 75 MG PO SCH (08:57)
[2017-05-17] MEDS: Citalopram TAB* 20 MG PO SCH (08:57)
[2017-05-17] MEDS: Metoprolol Tartrate TAB* 100 MG TAB PO SCH (08:57)
[2017-05-17] MEDS: Losartan TAB* 25 MG PO SCH (08:57)
[2017-05-17] MEDS: Oxybutynin TAB* 5 MG PO SCH (08:57)
--- NOTE | 2017-05-17 09:32 | PN ---
Progress Note - Progress Note Date of Service: 05/17/17 SOAP: Subjective: PO day #6 S/P L TKA on 05/[address] Hidalgo. States doing well, no CP, SOB, fevers, chills. Worried about going home alone and safety after TKA. Objective: Vital Signs Temp 98.9 F 05/17/17 07:26 Pulse 79 05/17/17 07:26 Resp 16 05/17/17 08:55 BP 131/74 05/17/17 07:26 Pulse Ox 94 05/17/17 07:26 Intake & Output 05/16/17 05/17/17 05/17/17 18:59 06:59 18:59 Intake Total 450 1000 Output Total 7927 349 6762 Balance -850 700 -1000 Intake: Oral 450 1000 Output: Urine 1001 554 8190 Other: # Bowel Movements 1 0 Estimated Stool Amount Medium Laboratory Results - last 24 hr 05/16/17 05/16/17 05/16/17 12:13 17:21 20:22 POC Glucose (mg/dL) 169 H 115 H 203 H 05/17/17 07:17 POC Glucose (mg/dL) 144 H General: WN, WD, NAD, lying comfortably in bed. Normal mood and affect. LLE: Incision C/D/I no erythema, drainage, warmth, or other sign of infection. Able to DF/PF ankle, wiggle toes. 2+ DP and PT pulse. Sensation grossly intact distally. Assessment: PO day #6 s/p L TKA with Dr. Hidalgo on 05/11/17. Plan: 1. Continue plavix 2. Plan to d/c to [facility] today 3. Continue PT/OT
--- NOTE | 2017-05-17 10:55 | DS ---
AMENDED REPORT NOW INCLUDES COSIGNER DESIGNATION - ESIGNED BEFORE ADJUSTMENTS DISCHARGE SUMMARY DATE OF ADMISSION: 05/11/17 DATE OF DISCHARGE: 05/17/17 PROVIDER: Genet Hidalgo MD * (DICTATED BY ADITYA DEJESUS) CHIEF COMPLAINT: 1. Left knee osteoarthritis. 2. Cerebrovascular accident. 3. Type 2 diabetes. 4. Hypertension. 5. Postoperative anemia. DISCHARGE DIAGNOSES: 1. Status post left total knee arthroplasty. 2. Status post cerebrovascular accident with residual left-sided weakness. 3. Type 2 diabetes. 4. Hypertension. 5. Postoperative anemia. PROCEDURE: Left total knee arthroplasty. CONSULTATIONS: 1. Physical therapy. 2. Occupational therapy. 3. Medicine. BRIEF HISTORY: Sierra is a 56-year-old female with continues complaints of left knee pain. She has failed conservative management and elected to proceed with a left total knee arthroplasty on 05/11/[address] Hidalgo. HOSPITAL COURSE: Ms. Sinclair was admitted to [facility] on 05/11/17 where she underwent a left total knee arthroplasty. Postoperatively she recovered on the Surgical Short Stay Unit. Postop day #1 her Wilkerson catheter was removed and she was able to urinate on her own. She was advanced to a carb controlled diet without difficulty. Pain was controlled with Percocet and she was restarted on her home medications. Labs and vital signs remained stable. She as advanced with physical therapy and occupational therapy, and has been weightbearing as tolerated on her left lower extremity. DVT prophylaxis was Lovenox with a plan to restart her Plavix when she was discharged. She continued on postop #2 through #6 to improve, though she still has significant concern about safety at home due to living alone. On postop day #6 she was orthopedically and medically stable [facility] PHYSICAL EXAM: In general the patient is well developed, well nourished and in no acute distress. She is alert and oriented x3. Vital signs on the day of discharge temperature 98.9, pulse 79, respirations 16, blood pressure 131/74. Pulse ox 94%. Examination of the left lower extremity demonstrates intact surgical incision on the anterior aspect of her left knee that is clean, dry and intact. It is without erythema, drainage or physical/clinical signs of infection. A dry sterile dressing was applied today on 05/17/17. She was noted to have active dorsiflexion and plantar flexion, 2+ palpable DP and PT pulses. Sensation is intact to light touch distally. LABORATORY DATA: On 05/16/17 hemoglobin 9.2, hematocrit 27. RADIOGRAPHS: Postoperative radiographs showed left knee with a left total knee arthroplasty with satisfactory prosthesis placement and no acute bony abnormalities. DISCHARGE MEDICATIONS: 1. Acetaminophen 325 every 6 hours p.r.n. pain or fever. 2. Norvasc 5 mg every a.m. 3. Aspirin 81 mg in the morning. 4. Baclofen 10 mg tab, 5 mg p.o. b.i.d. 5. Vitamin D3 1000 IU take 2000 IU daily. 6. Citalopram 20 mg tab daily. 7. Clopidogrel 75 mg daily. 8. Flexeril 10 mg t.i.d. p.r.n. muscle spasms. 9. Losartan 100 mg daily. 10. Magnesium oxide 400 mg daily. 11. Metoprolol 100 mg daily. 12. Multivitamin tablet daily. 13. Zofran 4 mg every 6 hours as needed for nausea. 14. Oxybutynin 5 mg daily. 15. CoQ10 100 mg daily. 16. Metformin 1000 mg at night. 17. Percocet 5/325 one to two tablets every 4-6 hours as needed for pain. CONDITION ON DISCHARGE: Stable. DISCHARGE INSTRUCTIONS: Ms. Sinclair is a 56-year-old female, postoperative day #6, status post left total knee arthroplasty which was uncomplicated. She is orthopedically and medically stable for discharge to senior living facility with her labs and vital signs stable. She will restart her home medications. She will restart clopidogrel on discharge. She will remain weightbearing as tolerated. She will take Percocet for pain control and Colace up to 3x a day for constipation. She will followup with Dr. Hidalgo in 10-14 days for incision check and suture removal. She was instructed to go to the emergency room should she develop chest pain or shortness of breath. She will call the office if she has fever, increasing pain or redness. She will be able to shower, she is able to shower currently although she is not able to bathe or submerge her wound. She can pat the wound dry. It will remain covered with gauze, Riky wrap or tape. All questions were answered today. SHAWNA MARKER, ADITYA [id number]/[facility] #: [id number] REGINA
[2017-05-17 11:39] VITALS: BP 96/51
== END 2017-05-17 12:35 | DRG 302 ==
LOC: AA 07:14 → SSU 15:19
PROVIDERS: ADMIT Orthopaedic Surgery Adult Reconstructive Orthopaedic Surgery; ATTEND Orthopaedic Surgery Adult Reconstructive Orthopaedic Surgery
PROC: 0SRD069 Replacement of Left Knee Joint with Oxidized Zirconium on Polyethylene Synthetic Substitute, Cemented, Open Approach (ICD-10-PCS; principal; 2017-05-11 09:00)
DX: M17.12 Unilateral primary osteoarthritis, left knee (principal); D62 Acute posthemorrhagic anemia; Z68.41 Body mass index [BMI] 40.0-44.9, adult; I69.354 Hemiplegia and hemiparesis following cerebral infarction affecting left non-dominant side; I10 Essential (primary) hypertension; F32.9 Major depressive disorder, single episode, unspecified; E78.00 Pure hypercholesterolemia, unspecified; E11.9 Type 2 diabetes mellitus without complications; E66.9 Obesity, unspecified; K21.9 Gastro-esophageal reflux disease without esophagitis; N32.81 Overactive bladder; F41.9 Anxiety disorder, unspecified; M25.662 Stiffness of left knee, not elsewhere classified; M25.762 Osteophyte, left knee; E55.9 Vitamin D deficiency, unspecified; Z79.82 Long term (current) use of aspirin; Z88.8 Allergy status to other drugs, medicaments and biological substances; Z82.5 Family history of asthma and other chronic lower respiratory diseases; Z82.49 Family history of ischemic heart disease and other diseases of the circulatory system; Z83.3 Family history of diabetes mellitus; I69.398 Other sequelae of cerebral infarction; Z79.84 Long term (current) use of oral hypoglycemic drugs; Z79.02 Long term (current) use of antithrombotics/antiplatelets
CPT/HCPCS: 36415; 80048; 85014; 85018; 85049; 85610; 88305; 88311; 94760; A9270-GY; C1776; J0690; J1650; J2250; J2300; J2704; J3010

== ENCOUNTER 2017-10-05 07:55 | Inpatient (IN) | payer BC, MEDICARE ==
--- NOTE | 2017-09-23 11:47 | HP ---
HISTORY AND PHYSICAL: DATE OF SURGERY: 10/05/17 DATE OF OFFICE VISIT: 09/22/17 SURGEON: Genet Hidalgo MD.* (DICTATED BY ADITYA STAFFORD) PROCEDURE: Right total knee arthroplasty. CHIEF COMPLAINT: Right knee pain. HISTORY OF PRESENT ILLNESS: Ms. Sinclair is a 56-year-old female with complaints of right knee pain secondary to end-stage osteoarthritis. She has failed conservative treatment and elected to proceed with a right total knee arthroplasty, which is scheduled for 10/05/[address] Hidalgo. PAST MEDICAL HISTORY: Stroke x3, hypertension, diabetes, overactive bladder and right bundle branch block. PAST SURGICAL HISTORY: x2, hernia repair, vein surgery bilateral lower extremities, left total knee arthroplasty and tonsillectomy. CURRENT MEDICATIONS: 1. Aspirin 81 mg daily. 2. Losartan potassium 100 mg every day. 3. Amlodipine 5 mg daily. 4. Plavix 75 mg daily. 5. Citalopram hydrobromide 20 mg daily. 6. Metformin 1000 mg once a day. 7. Oxybutynin 5 mg daily. 8. CoQ10 and a multivitamin. 9. Metoprolol 100 mg daily. ALLERGIES: To STATINS. FAMILY HISTORY: COPD and coronary artery disease. SOCIAL HISTORY: She is a 56-year-old female. She lives with her girlfriend. She does not smoke or use drugs or alcohol. REVIEW OF SYSTEMS: A complete 14-point review of systems was reviewed with the patient, which is positive for history of diabetes and 3 strokes. She denies a history of pulmonary embolism, hepatitis, HIV or anesthesia problems. PHYSICAL EXAMINATION GENERAL: She is a well developed, well nourished, in no acute distress. VITAL SIGNS: She stands 5 feet 3 inches tall, weighs 244 pounds, her blood pressure is 136/86, her heart rate 80. HEENT: Normocephalic, atraumatic. NECK: Supple. No palpable lymph nodes. PULMONARY: Lungs are clear to auscultation bilaterally. CARDIO: Regular rate and rhythm. Strong S1, S2. ABDOMEN: Soft, nontender, nondistended. NEUROLOGIC: She is alert and oriented x3. MUSCULOSKELETAL: Right lower extremity, the skin is intact. There are no open wounds are abrasions. There is a moderate joint effusion. She has tenderness over the medial and lateral joint line. Range of motion is 10 to 125 degrees with a 15- degree varus deformity, 2+ dorsalis pedis pulses, intact sensation to her lower extremities. Muscle group strengths are intact at 5/5. ASSESSMENT AND PLAN: Ms. Sinclair is a 56-year-old female with complaints of right knee pain secondary to end-stage osteoarthritis. She has failed conservative treatment and elected to proceed with a right total knee arthroplasty, which is scheduled for 10/05/[address] Hidalgo has discussed the risks and benefits of the surgery at today's visit and all of her questions were answered. She will follow up with Dr. Hidalgo two weeks after surgery. She is on Plavix and aspirin. She was asked to stop both of those one week before the surgery and we will restart this medications postoperatively. ADITYA STAFFORD [id number]/[facility] #: [id number] REGINA
[~2017-10-05 07:55] MED LIST changes: +Gabapentin CAP(*) 300 MG PO ONE; +Propofol* 500 MG/50 ML BTL ONE
[2017-10-05] MEDS ORDERED: KETAMINE HCL* 50 MG/ML 10 ML VIAL ONE (07:56)
[2017-10-05] MEDS ORDERED: fentaNYL* 50 MCG/ML 2 ML VIAL (100 MCG VIAL) ONE (07:59)
[2017-10-05] MEDS ORDERED: Gabapentin CAP(*) 300 MG ONE (07:59)
[2017-10-05] MEDS ORDERED: ceFAZolin 2 GM PREMIX (*) 2 GM/50 ML BAG IVPB ONE (07:59)
[2017-10-05] MEDS ORDERED: Midazolam* 1 MG/ML 2 ML VIAL (2 MG) ONE ×2 (07:59→11:08)
[2017-10-05] MEDS ORDERED: Chloroprocaine 2%* 20 ML VIAL ONE (07:59)
--- OUTSIDE RECORDS SUMMARY | 2017-10-05 08:00 | XMS REPORT ---
:1960 External Reference #:[id number] Author Organization [facility] Address [address] [address] Phone [phone] Care Team Providers Name Role Phone Jennifer Morejon RN MS [employer] Care Team Information Medical Scheduler Unavailable Payers Type Date Identification Numbers Payment Provider Subscriber Commercial Effective: Policy Number: BCBS Medicare Heriberto Sinclair 2017 [id number] Group Number: [id number] [address] [id number] Group Name: [facility] Essential Ppo [place] [phone] PayID: [id number] Problems Date Description Provider Status Onset: 09/03/2013 [...] Status Single Occupation [employer] / [employer] ETOH Use Rarely consumes wine Smoking [...] Strength Qnty SIG Indications Ordering Provider Bedside S/p stroke. I69.854 Jean-Pierre Commode 2018 hemiplegia, Jennifer knee RUBI Davis MS replacement, [employer] severe osteoarthritis Clopidogrel 02/09/ Active Tablets 75mg 90tabs Take One Tablet I63.9 Jean-Pierre, Bisulfate 2016 By Mouth Every Jennifer Davis RN MS [facility] Z86.73 Oxybutynin 01/09/2016 Active Tablets 5mg 90tabs Take One N39.3 Jean-Pierre, Chloride Tablet By Jennifer Davis Mouth RN MS [facility] Every Day Metformin HCL 09/20/2015 Active Tablets 1000mg 180tabs Take E11.9 Jean-Pierre, One-Half Jennifer Davis Tablet By RN MS [employer] Mouth Twice A Day Amlodipine 05/31/2015 Active Tablets 5mg 90tabs Take One I10 [place], Besylate Tablet By Jennifer Davis Mouth RN MS [facility] Every Day Citalopram 05/31/2015 Active Tablets 20mg 30tabs Take One F33.0 Jean-Pierre, Hydrobromide Tablet By Jennifer Davis Mouth RN MS [facility] Every Day F32.9 Losartan 05/31/2015 Active Tablets 100mg 30tabs Take One I10 [place], Potassium Tablet By Jennifer Davis Mouth Every RN MS [employer] Day Aspir-81 12/06/[address] 81mg 1 by mouth Z86.73 Christine Hernandez every day MD Salome I63.9 Metoprolol 09/27/2013 Active Tablets ER 100mg 90tabs Take One I10 [place], Succinate ER 24HR Tablet By Jennifer Mouth Every C, RN MS Day [employer] Ultra Co Q10 Active Unknown Supplement Glucosamine 01/09/2016 - Hx Tablets OTC 2 by mouth Jean-Pierre, Chondroitin 11/11/2016 every Jennifer Advanced OTC morning C, RN MS [employer] Ropinirole HCL 02/04/2015 - Hx Tablets 0.5mg 90tabs 1 qHS 1-3 G25.8 David , 09/20/2015 hrs before 1 Christine bedtime prn MD Salome Physical 01/22/2015 - Hx Dx: David, Therapy 05/31/2015 strokes, Christine paresis MD Salome Hydrocodone-Riky 01/17/2015 - Hx Tablets 5-325mg 30tabs 1-2 by David taminophen 05/31/2015 mouth four Christine times a day MD Salome as needed Livalo 01/15/2015 - Hx Tablets 1mg 30tabs 1 tabs Jean-Pierre, 09/20/2015 every day Jennifer In Evening Susan, RN MS [employer] Citalopram 01/08/2015 - Hx Tablets 10mg 90tabs 1 everyday F33.0 David Hydrobromide 05/31/2015 Christine Mcmahon MD F32.9 Plavix 01/08/2015 - Hx Tablets 75mg 90tabs 1 by mouth I63.9 Jennifer Morejon 02/09/2017 every day Susan RN MS [employer] Z86.73 Ropinirole HCL 01/08/2015 - Hx Tablets 0.25mg 180tabs 2 every night David 02/04/2015 at bedtime Christine Mcmahon MD Zetia 01/08/2015 - Hx Tablets 10mg 90tabs take 1 tablet E78. David, 02/27/2015 by mouth every 0 Christine night at MD Salome bedtime Sick Note 12/06/2014 - Hx SHould be off David, 01/08/2015 Dec 10 to Dec MD Salome inclusively Pravastatin 12/06/2014 - Hx Tablets 20mg 90tabs 1/2- 1 every David, Sodium 01/08/2015 night at [facility] bedtime - 1st MD Salome choice [...] Hx Tablets ER 1000mg 180tabs start as /2 250.00 David, ER (Osm) 10/31/2013 24HR tab qday, Christine Mcmahon MD increase by 1/2 tab qweek up to 2 tabs qday as tolerated Vitamin D 09/27/2013 - Hx Tablets 1000Unit 90tabs 1 by mouth E55.9 [place], 09/24/2017 everyday in [facility] summer and 2 RUBI Davis MS daily in [facility] winter Prednisone 09/20/2013 - Hx Tablets 10mg 30tabs 3 tab bid M10.9 David, 05/31/2015 on day 1, Christine then 3 tabs MD Salome daily until gout flare resolves + extra 2 days To fill only with gout flare pt will call Lisinopril 08/28/2013 - Hx Tablets 10mg 90tabs 1 by mouth David, 09/27/2013 every day Christine Mcmahon MD Baclofen - Hx Tablets 10mg 1.5 by mouth I69.854 Unknown 09/24/2017 twice a day per neuro dr Littlejohn 400 - Hx Tablets 400(241.3 one tab bid Unknown 09/24/2017 mg) mg for headache prevention Immunizations CPT Code Status Date Vaccine Lot # [id number] Given 09/07/2012 Tdap (Adacel) Ages 7 And Above Only [id number] Refused 03/24/2017 Influenza Vac, 3 Yrs & Older, Quadrivalent, [place], [place] Use [id number] Refused 01/09/2016 Influenza Vac, 3 Yrs & Older, Quadrivalent, Split, Im Use Vital Signs Date Vital Result Comment 09/24/2017 Weight 245.25 lb Height 63 inches 5'3" BMI (Body Mass Index) 43.4 kg/m2 04/26/2017 Weight 243.00 lb Heart Rate 76 [...] Test Result H/L Range Note Hemoglobin A1c 09/24/2017 Hemoglobin A1c 7.1 % High 4.1-5.9 Estimated Average Glucose Calc 157 mg/dL High 71-140 Laboratory test finding 09/24/2017 Surepath Pap SEE NOTE 1 Lipid 09/24/2017 Cholesterol 226 mg/dL High 50-199 Triglycerides 252 mg/dL High 30-200 HDL 39 mg/dL 35-85 2 Chol/ HDL Ratio 5.8 ratio High 3.7-5.6 VLDL 50 mg/dL High 2-29 LDL (Calc) 137 mg/dL High 20-99 3 Hemoglobin A1c 03/24/2017 Hemoglobin A1c 6.5 % High 4.1-5.9 Estimated Average Glucose Calc 140 mg/dL 71-140 Lipid 03/24/2017 Cholesterol 229 mg/dL High 50-199 Triglycerides 216 mg/dL High 30-200 HDL 42 mg/dL 35-85 4 Chol/ HDL Ratio 5.5 ratio 3.7-5.6 VLDL 43 mg/dL High 2-29 LDL (Calc) 144 mg/dL High 20-99 5 Comprehensive Met Panel-FCMG 03/24/2017 Sodium 142 mmol/L 135-146 6 Potassium 3.9 mmol/L 3.5-5.2 Chloride# 101 mmol/L 97-110 7 Carbon Dioxide 28 mmol/L 24-34 Glucose 85 mg/dL 70-105 Creatinine 0.7 mg/dL 0.5-1.4 Calcium 10.0 mg/dL 8.5-10.2 Total Protein 7.6 g/dL 6.0-8.0 Albumin 4.6 g/dL 3.6-4.9 Globulin 3.0 g/dL 2.0-3.5 A/G Ratio 1.5 Ratio 1.0-2.2 Total Bilirubin 0.6 mg/dL 0.1-1.3 Alkaline Phosphatase 70 U/L 24-140 Alt 28 U/L 3-42 Ast 26 U/L 8-42 Lucille Egfr >60 >60 8 Non Lucille Egfr >60 >60 9 Anion Gap 13 mmol/L 7-16 10 BUN 11 mg/dL 6-26 Laboratory test 03/24/2017 Microalbumin, Random 10.8 ug/ml 0.0-20.0 finding Urine Hemoglobin A1c 11/11/2016 Hemoglobin A1c 6.6 % High 4.1-5.9 Estimated Average Glucose Calc 143 High 71-140 Comprehensive Met Panel-FCMG 11/11/2016 Sodium 139 mmol/L 135-146 11 Potassium 4.3 mmol/L 3.5-5.2 Chloride# 103 mmol/L 97-110 12 Carbon Dioxide 27 mmol/L 24-34 Glucose 82 mg/dL 70-105 BUN 11 mg/dL 6-26 Creatinine 0.6 mg/dL 0.5-1.4 Calcium 9.7 mg/dL 8.5-10.2 Total Protein 7.3 g/dL 6.0-8.0 Albumin 4.3 g/dL 3.6-4.9 Globulin 3.0 g/dL 2.0-3.5 A/G Ratio 1.4 Ratio 1.0-2.2 Total Bilirubin 0.6 mg/dL 0.1-1.3 Alkaline Phosphatase 70 U/L 24-140 Alt 19 U/L 3-42 Ast 18 U/L 8-42 Lucille Egfr >60 >60 13 Non Lucille Egfr >60 >60 14 Anion Gap 9 mmol/L 7-16 15 Lipid 11/11/2016 Cholesterol 212 mg/dL High 50-199 Triglycerides 205 mg/dL High 30-200 HDL 37 mg/dL 35-85 16 Chol/ HDL Ratio 5.7 ratio High 3.7-5.6 VLDL 41 mg/dL High 2-29 LDL (Calc) 134 mg/dL High 20-99 17 Laboratory test finding 11/11/2016 Vit D25oh 45 ng/mL 31-100 Laboratory test finding 05/07/2016 Hepatitis C Virus NONREACTIVE Nonreactive 18 Antibody Vit D,25 Hydroxy 33 ng/mL 31-100 18 Comprehensive Metabolic (CMP) 05/07/2016 Sodium 140 mmol/L 134-142 18 Potassium 4.5 mmol/L 3.5-5.2 18 Chloride 103 mmol/L 97-109 18 Carbon Dioxide 27 mmol/L 24-34 18 Glucose 95 mg/dL 70-105 18 BUN 12 mg/dL 6-26 18 Creatinine 0.6 mg/dL 0.5-1.4 18 Calcium 9.6 mg/dL 8.5-10.2 18 Total Protein 7.4 g/dL 6.0-8.0 18 Albumin 4.2 g/dL 3.6-4.9 18 Globulin 3.2 g/dL 2.0-3.5 18 A/G Ratio 1.3 Ratio 1.0-2.2 18 Total Bilirubin 0.5 mg/dL 0.1-1.3 18 Alkaline Phosphatase 66 U/L 24-140 18 Alt 22 U/L 3-42 18 Ast 20 U/L 8-42 18 Anion Gap 15 mmol/L High 6-14 18 Ulcille Egfr >60 >60 18, 19 Non Lucille Egfr >60 >60 18, 20 Laboratory test finding 05/07/2016 Hemoglobin A1c 6.9 % High 4.1-5.9 18 CBC With Auto Diff 01/09/2016 WBC 7.4 K/uL 4.1-11.0 21 RBC 4.80 M/uL 4.00-5.40 21 Hemoglobin 14.4 gm/dL 12.0-16.0 21 Hematocrit 43.1 % 36.0-47.0 21 MCV 89.7 fL 80.0-97.0 21 MCH 30.0 pg 27.0-32.0 21 MCHC 33.4 g/dL 32.0-36.0 21 RDW 13.5 % 11.5-14.5 21 PLT Count 237 K/ul 140-400 21 Neutrophil 61.8 % 35.0-75.0 21 Lymphocyte 26.8 % 16.0-52.0 21 Monocyte 7.9 % 2.0-10.0 21 Eosinophil 3.0 % 0.0-5.0 21 Basophil 0.5 % 0.0-4.0 21 Abs Neutrophils 4.5 K/uL 2.1-8.0 21 Abs Lymphocytes 2.0 K/uL 0.8-5.5 21 Abs Monocytes 0.6 K/uL 0.1-1.0 21 Abs Eosinophils 0.2 K/uL 0.0-0.5 21 Abs Basophils 0.0 K/uL 0.0-0.3 21 Comprehensive Metabolic (CMP) 01/09/2016 Sodium 136 mmol/L 134-142 21 Potassium 4.6 mmol/L 3.5-5.2 21 Chloride 102 mmol/L 97-109 21 Carbon Dioxide 28 mmol/L 24-34 21 Glucose 110 mg/dL High 70-105 21 BUN 14 mg/dL 6-26 21 Creatinine 0.7 mg/dL 0.5-1.4 21 Calcium 10.1 mg/dL 8.5-10.2 21 Total Protein 7.6 g/dL 6.0-8.0 21 Albumin 4.4 g/dL 3.6-4.9 21 Globulin 3.2 g/dL 2.0-3.5 21 A/G Ratio 1.4 Ratio 1.0-2.2 21 Total Bilirubin 0.5 mg/dL 0.1-1.3 21 Alkaline Phosphatase 67 U/L 24-140 21 Alt 22 U/L 3-42 21 Ast 19 U/L 8-42 21 Anion Gap 11 mmol/L 6-14 21 Lucille Egfr >60 >60 21, 22 Non Lucille Egfr >60 >60 21, 23 Laboratory test finding 01/09/2016 Hemoglobin A1c 6.4 % High 4.1-5.9 21 Microalbumin, Random Urine 14.6 ug/ml 0.0-20.0 21 TSH 1.01 uIU/mL 0.35-4.94 21 Lipid 09/20/2015 Cholesterol 219 mg/dL High 50-199 Triglycerides 199 mg/dL 30-200 HDL 33 mg/dL Low 35-85 24 Chol/ HDL Ratio 6.6 ratio High 3.7-5.6 VLDL 40 mg/dL High 2-29 LDL (Calc) 146 mg/dL High 20-99 25 Laboratory test finding 09/20/2015 Hemoglobin A1c 6.6 [...] 11 mmol/L 6-14 Lucille Egfr >60 >60 26 Non Lucille Egfr >60 >60 27 Laboratory test finding 05/31/2015 Hemoglobin A1c 6.5 % High 4.1-5.9 28 CBC With Auto Diff 05/31/2015 WBC 7.3 K/uL 4.1-11.0 28 RBC 4.79 M/uL 4.00-5.40 28 Hemoglobin 14.3 gm/dL 12.0-16.0 28 Hematocrit 43.4 % 36.0-47.0 28 MCV 90.6 fL 80.0-97.0 28 MCH 29.8 pg 27.0-32.0 28 MCHC 32.9 g/dL 32.0-36.0 28 RDW 13.6 % 11.5-14.5 28 PLT Count 192 K/ul 140-400 28 Neutrophil 62.7 % 35.0-75.0 28 Lymphocyte 27.1 % 16.0-52.0 28 Monocyte 7.2 % 2.0-10.0 28 Eosinophil 2.4 % 0.0-5.0 28 Basophil 0.6 % 0.0-4.0 28 Abs Neutrophils 4.6 K/uL 2.1-8.0 28 Abs Lymphocytes 2.0 K/uL 0.8-5.5 28 Abmon 0.5 K/uL 0.1-1.0 28 Abs Eosinophils 0.2 K/uL 0.0-0.5 28 Abs Basophils 0.0 K/uL 0.0-0.3 28 Laboratory test finding 05/31/2015 TSH 1.38 uIU/mL 0.35-4.94 28 Comprehensive Metabolic (CMP) 05/31/2015 Sodium 136 mmol/L 134-142 28 Potassium 4.5 mmol/L 3.5-5.2 28 Chloride 102 mmol/L 97-109 28 Carbon Dioxide 29 mmol/L 24-34 28 Glucose 94 mg/dL 70-105 28 BUN 14 mg/dL 6-26 28 Creatinine 0.6 mg/dL 0.5-1.4 28 Calcium 9.4 mg/dL 8.5-10.2 28 Total Protein 7.5 g/dL 6.0-8.0 28 Albumin 4.3 g/dL 3.6-4.9 28 Globulin 3.2 g/dL 2.0-3.5 28 A/G Ratio 1.3 Ratio 1.0-2.2 28 Total Bilirubin 0.5 mg/dL 0.1-1.3 28 Alkaline Phosphatase 68 U/L 24-140 28 Alt 15 U/L 3-42 28 Ast 15 U/L 8-42 28 Anion Gap 10 mmol/L 6-14 28 Lucille Egfr >60 >60 28, 29 Non Lucille Egfr >60 >60 28, 30 Laboratory test finding 02/27/2015 Magnesium 1.8 mg/dL 1.5-2.7 Lipid 02/27/2015 Cholesterol 186 mg/dL 50-199 Triglycerides 171 mg/dL 30-200 HDL 36 mg/dL 35-85 31 Chol/ HDL Ratio 5.2 ratio 3.7-5.6 VLDL 34 mg/dL High 2-29 LDL (Calc) 116 mg/dL High 20-99 32 Laboratory test finding 02/27/2015 Hemoglobin A1c 5.9 % 4.1-5.9 Uric Acid 6.3 mg/dL 2.6-7.6 Vit D,25 Hydroxy 39 ng/mL 31-100 CBC With Auto Diff 02/27/2015 WBC 4.7 [...] 8 mmol/L 6-14 Lucille Egfr >60 >60 33 Non Lucille Egfr >60 >60 34 CBC With Auto Diff 11/28/2014 WBC 5.7 K/uL 4.1-11.0 35 RBC 4.42 M/uL 4.00-5.40 35 Hemoglobin 13.1 gm/dL 12.0-16.0 35 Hematocrit 40.1 % 36.0-47.0 35 MCV 90.7 fL 80.0-97.0 35 MCH 29.8 pg 27.0-32.0 35 MCHC 32.8 g/dL 32.0-36.0 35 RDW 13.3 % 11.5-14.5 35 PLT Count 178 K/ul 140-400 35 Neutrophil 51.3 % 35.0-75.0 35 Lymphocyte 38.6 % 16.0-52.0 35 Monocyte 7.0 % 2.0-10.0 35 Eosinophil 2.3 % 0.0-5.0 35 Basophil 0.8 % 0.0-4.0 35 Abs Neutrophils 2.9 K/uL 2.1-8.0 35 Abs Lymphocytes 2.2 K/uL 0.8-5.5 35 Abmon 0.4 K/uL 0.1-1.0 35 Abs Eosinophils 0.1 K/uL 0.0-0.5 35 Abs Basophils 0.0 K/uL 0.0-0.3 35 Comprehensive Metabolic (CMP) 11/28/2014 Sodium 135 mmol/L 134-142 35 Potassium 4.4 mmol/L 3.5-5.2 35 Chloride 103 mmol/L 97-109 35 Carbon Dioxide 27 mmol/L 24-34 35 Glucose 102 mg/dL 70-105 35 BUN 15 mg/dL 6-26 35 Creatinine 0.7 mg/dL 0.5-1.4 35 Calcium 9.4 mg/dL 8.5-10.2 35 Total Protein 6.8 g/dL 6.0-8.0 35 Albumin 4.1 g/dL 3.6-4.9 35 Globulin 2.7 g/dL 2.0-3.5 35 A/G Ratio 1.5 Ratio 1.0-2.2 35 Total Bilirubin 0.5 mg/dL 0.1-1.3 35 Alkaline Phosphatase 59 U/L 24-140 35 Alt 13 U/L 3-42 35 Ast 13 U/L 8-42 35 Anion Gap 9 mmol/L 6-14 35 Lucille Egfr >60 >60 35, 36 Non Lucille Egfr >60 >60 35, 37 Lipid 11/28/2014 Cholesterol 188 mg/dL 50-199 35 Triglycerides 128 mg/dL 30-200 35 HDL 37 mg/dL 35-85 35, 38 Chol/ HDL Ratio 5.1 ratio 3.7-5.6 35 VLDL 26 mg/dL 2-29 35 LDL (Calc) 125 mg/dL High 20-99 35, 39 Laboratory test finding 11/28/2014 Hemoglobin A1c 6.3 % High 4.1-5.9 35 Uric Acid 6.6 mg/dL 2.6-7.6 35 Vit D,25 Hydroxy 49 ng/mL 31-100 35 CBC With Auto Diff 08/14/2014 WBC 6.2 K/uL 4.1-11.0 40 RBC 4.65 M/uL 4.00-5.40 40 Hemoglobin 14.2 gm/dL 12.0-16.0 40 Hematocrit 42.1 % 36.0-47.0 40 MCV 90.6 fL 80.0-97.0 40 MCH 30.5 pg 27.0-32.0 40 MCHC 33.7 g/dL 32.0-36.0 40 RDW 13.2 % 11.5-14.5 40 PLT Count 180 K/ul 140-400 40 Neutrophil 57.2 % 35.0-75.0 40 Lymphocyte 33.9 % 16.0-52.0 40 Monocyte 5.2 % 2.0-10.0 40 Eosinophil 3.0 % 0.0-5.0 40 Basophil 0.7 % 0.0-4.0 40 Abs Neutrophils 3.5 K/uL 2.1-8.0 40 Abs Lymphocytes 2.1 K/uL 0.8-5.5 40 Abmon 0.3 K/uL 0.1-1.0 40 Abs Eosinophils 0.2 K/uL 0.0-0.5 40 Abs Basophils 0.0 K/uL 0.0-0.3 40 Comprehensive Metabolic (CMP) 08/14/2014 Sodium 137 mmol/L 134-142 40 Potassium 4.0 mmol/L 3.5-5.2 40 Chloride 101 mmol/L 97-109 40 Carbon Dioxide 25 mmol/L 24-34 40 Glucose 102 mg/dL 70-105 40 BUN 12 mg/dL 6-26 40 Creatinine 0.6 mg/dL 0.5-1.4 40 Calcium 9.3 mg/dL 8.5-10.2 40 Total Protein 7.3 g/dL 6.0-8.0 40 Albumin 4.3 g/dL 3.6-4.9 40 Globulin 3.0 g/dL 2.0-3.5 40 A/G Ratio 1.4 Ratio 1.0-2.2 40 Total Bilirubin 0.5 mg/dL 0.1-1.3 40 Alkaline Phosphatase 57 U/L 24-140 40 Alt 18 U/L 3-42 40 Ast 17 U/L 8-42 40 Anion Gap 15 mmol/L High 6-14 40 Lucille Egfr >60 >60 40, 41 Non Lucille Egfr >60 >60 40, 42 Lipid 08/14/2014 Cholesterol 181 mg/dL 50-199 40 Triglycerides 222 mg/dL High 30-200 40 HDL 37 mg/dL 35-85 40, 43 Chol/ HDL Ratio 4.9 ratio 3.7-5.6 40 VLDL 44 mg/dL High 2-29 40 LDL (Calc) 100 mg/dL High 20-99 40, 44 Laboratory test finding 08/14/2014 Hemoglobin A1c 6.4 % High 4.1-5.9 40 Uric Acid 6.9 mg/dL 2.6-7.6 40 Microalb/Creat Panel 08/14/2014 Creatinine, Urine 149.6 mg/dL 40 Microalb/Creat Urine 23.99 ug/mgCreat 0.00-30.00 40 Microalbumin 35.9 ug/ml High 0.0-20.0 40 Laboratory test finding 08/14/2014 TSH 1.18 uIU/mL 0.35-4.94 40 Vitamin B12 298 pg/mL 180-914 40 Mary Panel -RL 05/17/2014 Aline-1 Igg AB @ NEGATIVE INDEX (Neg) DATA GOVERNANCE ANALYST Igg AB @ NEGATIVE INDEX (Neg) Scleroderma Igg AB @ NEGATIVE INDEX (Neg) Muir Igg AB @ NEGATIVE INDEX (Neg) Ssa Igg AB @ NEGATIVE INDEX (Neg) SSB Igg AB @ NEGATIVE INDEX (Neg) 45 Comprehensive Metabolic (CMP) 05/15/2014 Sodium 136 mmol/L 134-142 46 Potassium 4.8 mmol/L 3.5-5.2 46 Chloride 100 mmol/L 97-109 46 Carbon Dioxide 30 mmol/L 24-34 46 Glucose 107 mg/dL High 70-105 46 BUN 14 mg/dL 6-26 46 Creatinine 0.7 mg/dL 0.5-1.4 46 Calcium 9.5 mg/dL 8.5-10.2 46 Total Protein 7.1 g/dL 6.0-8.0 46 Albumin 4.3 g/dL 3.6-4.9 46 Globulin 2.8 g/dL 2.0-3.5 46 A/G Ratio 1.5 Ratio 1.0-2.2 46 Total Bilirubin 0.5 mg/dL 0.1-1.3 46 Alkaline Phosphatase 56 U/L 24-140 46 Alt 18 U/L 3-42 46 Ast 15 U/L 8-42 46 Anion Gap 11 mmol/L 6-14 46 Lucille Egfr >60 >60 46, 47 Non Lucille Egfr >60 >60 46, 48 Lipid 05/15/2014 Cholesterol 181 mg/dL 50-199 46 Triglycerides 144 mg/dL 30-200 46 HDL 37 mg/dL 35-85 46, 49 Chol/ HDL Ratio 4.9 ratio 3.7-5.6 46 VLDL 29 mg/dL 2-29 46 LDL (Calc) 115 mg/dL High 20-99 46, 50 Laboratory test finding 05/15/2014 Hemoglobin A1c 6.5 % High 4.1-5.9 46 Vit D,25 Hydroxy 49 ng/mL 31-100 46 Uric Acid 7.2 mg/dL 2.6-7.6 46 Elsa Screen Pos Neg 46, 51 Esr 7 mm/hr 0-20 46 Rheumatoid Factor <10.0 IU/mL 0.0-10.0 46 CBC With Auto Diff 05/15/2014 WBC 6.8 K/uL 4.1-11.0 46 RBC 4.62 M/uL 4.00-5.40 46 Hemoglobin 13.9 gm/dL 12.0-16.0 46 Hematocrit 42.0 % 36.0-47.0 46 MCV 91.1 fL 80.0-97.0 46 MCH 30.1 pg 27.0-32.0 46 MCHC 33.0 g/dL 32.0-36.0 46 RDW 13.8 % 11.5-14.5 46 PLT Count 177 K/ul 140-400 46 Neutrophil 54.4 % 35.0-75.0 46 Lymphocyte 35.5 % 16.0-52.0 46 Monocyte 6.8 % 2.0-10.0 46 Eosinophil 2.7 % 0.0-5.0 46 Basophil 0.6 % 0.0-4.0 46 Abs Neutrophils 3.7 K/uL 2.1-8.0 46 Abs Lymphocytes 2.4 K/uL 0.8-5.5 46 Abmon 0.5 K/uL 0.1-1.0 46 Abs Eosinophils 0.2 K/uL 0.0-0.5 46 Abs Basophils 0.0 K/uL 0.0-0.3 46 CBC With Auto Diff 01/30/2014 WBC 6.3 K/uL 4.1-11.0 52 RBC 4.43 M/uL 4.00-5.40 52 Hemoglobin 13.6 gm/dL 12.0-16.0 52 Hematocrit 41.1 % 36.0-47.0 52 MCV 92.9 fL 80.0-97.0 52 MCH 30.6 pg 27.0-32.0 52 MCHC 33.0 g/dL 32.0-36.0 52 RDW 13.7 % 11.5-14.5 52 PLT Count 217 K/ul 140-400 52 Neutrophil 56.4 % 35.0-75.0 52 Lymphocyte 33.9 % 16.0-52.0 52 Monocyte 6.5 % 2.0-10.0 52 Eosinophil 2.3 % 0.0-5.0 52 Basophil 0.9 % 0.0-4.0 52 Abs Neutrophils 3.5 K/uL 2.1-8.0 52 Abs Lymphocytes 2.1 K/uL 0.8-5.5 52 Abmon 0.4 K/uL 0.1-1.0 52 Abs Eosinophils 0.1 K/uL 0.0-0.5 52 Abs Basophils 0.1 K/uL 0.0-0.3 52 Comprehensive Metabolic (CMP) 01/30/2014 Sodium 135 mmol/L 134-142 52 Potassium 4.7 mmol/L 3.5-5.2 52 Chloride 100 mmol/L 97-109 52 Carbon Dioxide 27 mmol/L 24-34 52 Glucose 99 mg/dL 70-105 52 BUN 13 mg/dL 6-26 52 Creatinine 0.6 mg/dL 0.5-1.4 52 Calcium 9.3 mg/dL 8.5-10.2 52 Total Protein 7.5 g/dL 6.0-8.0 52 Albumin 4.2 g/dL 3.6-4.9 52 Globulin 3.3 g/dL 2.0-3.5 52 A/G Ratio 1.3 Ratio 1.0-2.2 52 Total Bilirubin 0.5 mg/dL 0.1-1.3 52 Alkaline Phosphatase 59 U/L 24-140 52 Alt 23 U/L 3-42 52 Ast 19 U/L 8-42 52 Anion Gap 13 mmol/L 6-14 52 Lucille Egfr >60 >60 52, 53 Non Lucille Egfr >60 >60 52, 54 Lipid 01/30/2014 Cholesterol 204 mg/dL High 50-199 52 Triglycerides 181 mg/dL 30-200 52 HDL 36 mg/dL 35-85 52, 55 Chol/ HDL Ratio 5.7 ratio High 3.7-5.6 52 VLDL 36 mg/dL High 2-29 52 LDL (Calc) 132 mg/dL High 20-99 52, 56 Laboratory test finding 01/30/2014 Hemoglobin A1c 6.6 % High 4.1-5.9 52 Vit D,25 Hydroxy 37 ng/mL 31-100 52 Uric Acid 6.6 mg/dL 2.6-7.6 52 Laboratory test finding 01/30/2014 Lyme Igm/Igg AB NEGATIVE (Neg) 52, 57 CBC With Auto Diff 08/30/2013 WBC 5.7 K/uL 4.1-11.0 58 RBC 4.84 M/uL 4.00-5.40 58 Hemoglobin 14.3 gm/dL 12.0-16.0 58 Hematocrit 42.2 % 36.0-47.0 58 MCV 87.3 fL 80.0-97.0 58 MCH 29.6 pg 27.0-32.0 58 MCHC 33.9 g/dL 32.0-36.0 58 RDW 14.1 % 11.5-14.5 58 PLT Count 188 K/ul 140-400 58 Neutrophil 49.8 % 35.0-75.0 58 Lymphocyte 39.2 % 16.0-52.0 58 Monocyte 7.5 % 2.0-10.0 58 Eosinophil 2.4 % 0.0-5.0 58 Basophil 1.1 % 0.0-4.0 58 Abs Neutrophils 2.8 K/uL 2.1-8.0 58 Abs Lymphocytes 2.2 K/uL 0.8-5.5 58 Abmon 0.4 K/uL 0.1-1.0 58 Abs Eosinophils 0.1 K/uL 0.0-0.5 58 Abs Basophils 0.1 K/uL 0.0-0.3 58 Comprehensive Metabolic (CMP) 08/30/2013 Sodium 136 mmol/L 134-142 58 Potassium 4.8 mmol/L 3.5-5.2 58 Chloride 101 mmol/L 97-109 58 Carbon Dioxide 27 mmol/L 24-34 58 Glucose 117 mg/dL High 70-105 58 BUN 14 mg/dL 6-26 58 Creatinine 0.7 mg/dL 0.5-1.4 58 Calcium 9.5 mg/dL 8.5-10.2 58 Total Protein 7.7 g/dL 6.0-8.0 58 Albumin 4.2 g/dL 3.6-4.9 58 Globulin 3.5 g/dL 2.0-3.5 58 A/G Ratio 1.2 Ratio 1.0-2.2 58 Total Bilirubin 0.6 mg/dL 0.1-1.3 58 Alkaline Phosphatase 76 U/L 24-140 58 Alt 24 U/L 3-42 58 Ast 25 U/L 8-42 58 Anion Gap 13 mmol/L 6-14 58 Lucille Egfr >60 >60 58, 59 Non Lucille Egfr >60 >60 58, 60 Lipid 08/30/2013 Cholesterol 215 mg/dL High 50-199 58 Triglycerides 160 mg/dL 30-200 58 HDL 38 mg/dL 35-85 58, 61 Chol/ HDL Ratio 5.7 ratio High 3.7-5.6 58 VLDL 32 mg/dL High 2-29 58 LDL (Calc) 145 mg/dL High 20-99 58, 62 Microalb/Creat Panel 08/30/2013 Creatinine, Urine 74.6 mg/dL 58 Microalb/Creat Urine 13.93 ug/mgCreat 0.00-30.00 58 Microalbumin 10.4 ug/ml 0.0-20.0 58 Laboratory test finding 08/30/2013 Hemoglobin A1c 7.7 % High 4.1-5.9 58 TSH 0.99 uIU/mL 0.34-5.60 58 Vitamin B12 275 pg/mL 180-914 58 Vit D,25 Hydroxy 26 ng/mL Low 31-100 58 1 [facility] [employer] [facility]. [facility] [place] [address] CYTOLOGY REPORT Source of Specimen(s): [facility] Vaginal / Cervical Pap Smear - One Vial Date of Last Menstrual Period: 5 yrs Menstrual History: Post-menopausal Other Clinical Conditions: Last Pap Smear: 3 yrs normal Specimen Adequacy SATISFACTORY FOR EVALUATION ABSENCE OF ENDOCERVICAL/TRANSFORMATION ZONE COMPONENT General Categorization NEGATIVE FOR INTRAEPITHELIAL LESION OR MALIGNANCY Interpretation NEGATIVE FOR INTRAEPITHELIAL LESION OR MALIGNANCY Atrophy Reported: 09/28/2017 11:32 Electronically Signed Out By Caryn BOTELLO(ASCP) dss ICD9 Code: Z01.419 CPT code: A: [id number] Unless otherwise specified, testing performed by [facility] [address] [address] 2 Per NCEP ATP III Guidelines: Results lower than 40 mg/dL are suggestive of increased risk for coronary artery disease. Results > or=to 60 mg/dL are considered a negative risk factor. 3 Per NCEP ATP III Guidelines: Normal Population <130 Patients with medical conditions: CHD/DM Optimal: <100 Borderline high: 130-159 High: 160-189 Very high: >189 4 Per NCEP ATP III Guidelines: Results lower than 40 mg/dL are suggestive of increased risk for coronary artery disease. Results > or=to 60 mg/dL are considered a negative risk factor. 5 Per NCEP ATP III Guidelines: Normal Population <130 Patients with medical conditions: CHD/DM Optimal: <100 Borderline high: 130-159 High: 160-189 Very high: >189 6 Updated reference range on new analyzer 7 Updated reference range on new analyzer 8 Concerning GFR Guidelines for Americans: Normal function or mild renal disease, if clinically at risk: >/=60 mL/min Moderately decreased: 30-59 Severely decreased: 15-29 Renal failure: <15 9 Concerning GFR Guidelines: Normal function or mild [...] drugs that are excreted by the kidneys. 10 Updated reference range on new analyzer 11 Updated reference range on new analyzer 12 Updated reference range on new analyzer 13 Concerning GFR Guidelines for Americans: Normal function or mild renal disease, if clinically at risk: >/=60 mL/min Moderately decreased: 30-59 Severely decreased: 15-29 Renal failure: <15 14 Concerning GFR Guidelines: Normal function or mild [...] drugs that are excreted by the kidneys. 15 Updated reference range on new analyzer 16 Per NCEP ATP III Guidelines: Results lower than 40 mg/dL are suggestive of increased risk for coronary artery disease. Results > or=to 60 mg/dL are considered a negative risk factor. 17 Per NCEP ATP III Guidelines: Normal Population <130 Patients with medical conditions: CHD/DM Optimal: <100 Borderline high: 130-159 High: 160-189 Very high: >189 18 PLEASE MAIL COPY TO PT 19 Concerning GFR Guidelines for Americans: Normal [...] that are excreted by the kidneys. 21 PT WOULD LIKFE MAILED TO HER 22 Concerning GFR Guidelines for Americans: Normal function or mild renal disease, if clinically at risk: >/=60 mL/min Moderately decreased: 30-59 Severely decreased: 15-29 Renal failure: <15 23 Concerning GFR Guidelines: Normal function or mild [...] drugs that are excreted by the kidneys. 24 Per NCEP ATP III Guidelines: Results lower than 40 mg/dL are suggestive of increased risk for coronary artery disease. Results > or=to 60 mg/dL are considered a negative risk factor. 25 Per NCEP ATP III Guidelines: Normal Population <130 Patients with medical conditions: CHD/DM Optimal: <100 Borderline high: 130-159 High: 160-189 Very high: >189 26 Concerning GFR Guidelines for Americans: Normal [...] that are excreted by the kidneys. 28 PT WOULD LIKE RESULTS MAILED TO HER -BR 29 Concerning GFR Guidelines for Americans: Normal function or mild renal disease, if clinically at risk: >/=60 mL/min Moderately decreased: 30-59 Severely decreased: 15-29 Renal failure: <15 30 Concerning GFR Guidelines: Normal function or mild [...] drugs that are excreted by the kidneys. 31 Per NCEP ATP III Guidelines: Results lower than 40 mg/dL are suggestive of increased risk for coronary artery disease. Results > or=to 60 mg/dL are considered a negative risk factor. 32 Per NCEP ATP III Guidelines: Normal Population <130 Patients with medical conditions: CHD/DM Optimal: <100 Borderline high: 130-159 High: 160-189 Very high: >189 33 Concerning GFR Guidelines for Americans: Normal [...] that are excreted by the kidneys. 35 Fastin hours 36 Concerning GFR Guidelines for Americans: Normal function or mild renal disease, if clinically at risk: >/=60 mL/min Moderately decreased: 30-59 Severely decreased: 15-29 Renal failure: <15 37 Concerning GFR Guidelines: Normal function or mild [...] drugs that are excreted by the kidneys. 38 Per NCEP ATP III Guidelines: Results lower than 40 mg/dL are suggestive of increased risk for coronary artery disease. Results > or=to 60 mg/dL are considered a negative risk factor. 39 Per NCEP ATP III Guidelines: Normal Population <130 Patients with medical conditions: CHD/DM Optimal: <100 Borderline high: 130-159 High: 160-189 Very high: >189 40 This sample is drawn by:MARGIE 41 Concerning GFR Guidelines for Americans: Normal function or mild renal disease, if clinically at risk: >/=60 mL/min Moderately decreased: 30-59 Severely decreased: 15-29 Renal failure: <15 42 Concerning GFR Guidelines: Normal function or mild [...] drugs that are excreted by the kidneys. 43 Per NCEP ATP III Guidelines: Results lower than 40 mg/dL are suggestive of increased risk for coronary artery disease. Results > or=to 60 mg/dL are considered a negative risk factor. 44 Per NCEP ATP III Guidelines: Normal Population <130 Patients with medical conditions: CHD/DM Optimal: <100 Borderline high: 130-159 High: 160-189 Very high: >189 45 Unless otherwise specified, testing performed by [facility] [address] [place] [id number] 46 This sample is drawn by: 47 Concerning GFR Guidelines for Americans: Normal function or mild renal disease, if clinically at risk: >/=60 mL/min Moderately decreased: 30-59 Severely decreased: 15-29 Renal failure: <15 48 Concerning GFR Guidelines: Normal function or mild [...] drugs that are excreted by the kidneys. 49 Per NCEP ATP III Guidelines: Results lower than 40 mg/dL are suggestive of increased risk for coronary artery disease. Results > or=to 60 mg/dL are considered a negative risk factor. 50 Per NCEP ATP III Guidelines: Normal Population <130 Patients with medical conditions: CHD/DM Optimal: <100 Borderline high: 130-159 High: 160-189 Very high: >189 51 Screen for ELSA is positive. Please triage the lab within 5 days if you would like additional testing. 52 This sample is drawn by:MARGIE 53 Concerning GFR Guidelines for Americans: Normal function or mild renal disease, if clinically at risk: >/=60 mL/min Moderately decreased: 30-59 Severely decreased: 15-29 Renal failure: <15 54 Concerning GFR Guidelines: Normal function or mild [...] drugs that are excreted by the kidneys. 55 Per NCEP ATP III Guidelines: Results lower than 40 mg/dL are suggestive of increased risk for coronary artery disease. Results > or=to 60 mg/dL are considered a negative risk factor. 56 Per NCEP ATP III Guidelines: Normal Population <130 Patients with medical conditions: CHD/DM Optimal: <100 Borderline high: 130-159 High: 160-189 Very high: >189 57 A Negative serologic test for Lyme Disease indicates no serologic evidence of infection with B burgdorferi at the time this specimen was collected. A repeat specimen should be collected in 2 to 4 weeks if clinically indicated. Unless otherwise specified, testing performed by [facility] [address] [place] [id number] 58 This sample is drawn by:MORGAN/ZORAN 59 Concerning GFR Guidelines for Americans: Normal function or mild renal disease, if clinically at risk: >/=60 mL/min Moderately decreased: 30-59 Severely decreased: 15-29 Renal failure: <15 60 Concerning GFR Guidelines: Normal function or mild [...] drugs that are excreted by the kidneys. 61 Per NCEP ATP III Guidelines: Results lower than 40 mg/dL are suggestive of increased risk for coronary artery disease. Results > or=to 60 mg/dL are considered a negative risk factor. 62 Per NCEP ATP III Guidelines: Normal Population <130 Patients with medical conditions: CHD/DM Optimal: <100 Borderline high: 130-159 High: 160-189 Very high: >189 Procedures Date CPT Code Description Status Comment 12/16/2016 Colonoscopy Completed Document: 12/16/16 - Colonoscopy 11/25/2016 Mammogram Completed 01/30/2014 82909 Electrocardiogram Complete Completed Encounters Type Date Location Provider CPT E/M Dx Office Visit 04/26/2017 11:00[place] [address] Z01.818 E11.9 I10 E66.01 I63.9 I69.854 M25.562 Office Visit 03/24/2017 10:20a Jennifer Cedeno RN [facility] [address]2776 I69.854 E11.9 I10 Office Visit 11/11/2016 1:20p Jennifer Cedeno RN [facility] 41204 Z00.00 I69.854 E66.01 E11.9 I10 M25.562 Z12.11 Z12.31 E55.9 Office Visit 05/07/2016 9:40a Jennifer Cedeno RN [facility] 85878 E11.9 I10 I63.9 E55.9 Z11.59 Office Visit 01/09/2016 9:40a Jennifer Cedeno RN [facility] 89728 E11.9 I10 R53.83 G25.81 N39.3 Z12.31 Office Visit 09/20/2015 9:20a Jennifer Cedeno, [facility] [address]1106 E11.9 G25.81 I10 E78.0 M25.562 I63.9 Office Visit 05/31/2015 8:40a Jennifer Cedeno RN [place] [facility] 90013 E11.9 M10.9 E55.9 G25.81 F32.9 I10 Office Visit 02/27/2015 9:40[place] [address] E11.9 M10.9 E55.9 E78.0 M17.9 I10 F32.9 G25.81 Z86.73 Office Visit 12/06/2014 11:40[place] [address] Z86.73 E11.9 E78.0 Office Visit 11/28/2014 9:40[place] [address] 401.1 250.00 274.9 268.9 715.96 272.0 278.00 Office Visit 08/14/2014 9:40[place] [address] 401.1 250.00 274.9 780.79 454.9 V70.0 268.9 724.3 278.01 715.96 Office Visit 05/15/2014 9:40[place] [address] 401.1 250.00 268.9 274.9 780.79 715.96 272.0 278.00 Office Visit 01/30/2014 9:40[place] [address] 401.1 250.00 268.9 274.9 780.79 715.96 272.0 278.00 Office Visit 10/31/2013 1:40p [place] [address] 401.1 274.9 250.00 780.79 268.9 715.96 272.0 Office Visit 09/26/2013 1:00p [place] [address] 401.1 274.9 250.00 780.79 268.9 715.96 724.3 272.0 Office Visit 09/19/2013 2:20p [place] [address] 274.9 401.1 780.79 Office Visit 08/28/2013 11:20[place] [address] 401.1 250.00 715.96 724.3 Plan of Care Future Appointment(s):03/18/2018 10:00 am - Jennifer Morejon, RN [facility] at [facility]/24/2017 - Jennifer Morejon, RN MS FNPZ01.419 Encntr for cylinder devalver exam ( general) (routine) w/o abn findingsFollow up:6 [place] [facility] CVSZ01.818 Encounter for other preprocedural examinationMiscellaneous:HOLD PLAVIX, ASA, METFORMIN, X 7 DAYS, HOLD AMLODIPINE AND LOSARTAN THE AM OF SURGERY ( DID TAKE THE METOPROLOL)E78.2 Mixed hyperlipidemiaMiscellaneous:ICONTNUE ON A LOW FAT DIET, COUNTINUE TO EXERSIZE ON A REGULAR BASIS AND CONTINUE TO MONITOR THE CHOLESTEROL KMINILH76 Essential (primary) hypertensionMiscellaneous:REVIEWED MEDICAL IMPLICATIONS OF HIGH BLOOD PRESSURE LIKE, STROKE, HEART ATTACK, TIA, REVIEWED THINGS THAT MAY LOWER BP LIKE LOW SALT DASH DIET( OFFERED INFO, OR CAN GOOGLE) INCREASING DAILY EXERSIZE.CUTTING OUT STIMULANTS LIKE NICOTINE OR CAFFINE AND WEIGHT LOSS.E11.9 Type 2 diabetes mellitus without kmgfjdauvvkwfD33.154 Hemiplga following ntrm intcrbl hemor aff LEFT nondom sideN39.42 Incontinence without sensory awarenessComments:IN AM SHE IS INCONTINENT WHEN SHE STANDS UP WHEN FIRST GETTING UP, OTHERWISE GOOD CONTROL ON MEDS. CONTINUE ON CURRENT MEDS, MAY NEED TO HOLD THIS TCYAUODPXUUSLDXG02.89 Encounter for screening for other wowgaylkM13.41 Body mass index (BMI) 40.0-44.9 , adult
[2017-10-05] MEDS ORDERED: Lidocaine 2% PF * 5 ML VIAL ONE (08:01)
--- OUTSIDE RECORDS SUMMARY | 2017-10-05 08:01 | XMS REPORT ---
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 Physician Unavailable Payers Type Date Identification Numbers Payment Provider Subscriber Health Maintenance Policy Number: Medicare Blue o Sierra Peterson (O) [id number] PayID: [id number] [address] [address] Medigap Part B Expires: 08/01/2017 Policy Number: BS Jyoti Reid [id number] Group Name: Exchange Product [address] PayID: [id number] [address] Medigap Part B Effective: 05/13/2017 Policy Number: Medicare Sierra Reid [id number] Expires: 05/13/2017 PayID: [id number] [address] [place] [address] Medigap Part B Effective: 03/15/2014 Policy Number: Jyoti Reid [id number] Expires: 03/14/2015 Group Number: [id number] PO [address] PayID: [id number] [place] [address] Problems Date Description Provider Status Onset: 11/27/2016 Localized, primary osteoarthritis Genet Hidalgo M.D. Active Onset: 01/29/2017 Preoperative cardiovascular examination Josiane Velazquez M.D. Active Onset: 01/29/2017 Electrocardiogram abnormal Josiane Velazquez M.D. Active Onset: 01/29/2017 Right bundle branch block Josiane Velazquez M.D. Active Onset: 08/02/2017 Arthroplasty of knee Genet Hidalgo M.D. 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 times a day as needed Aspirin Ec Active Tablets DR 81mg 30tabs 1 by Andre Watts MD every day Losartan Active Tablets 100mg 1 [...] by Unknown Chloride 000 mouth every day Vitamin D Active Capsules 1000Unit 1 by Unknown (Cholecalcifero 000 mouth l) every day in summer and two in winter Co-Enzyme Q-10 Active Capsules 100mg 1 by Unknown 000 mouth every day Multi Vitamin 0 Active Tablets 1 by Unknown 000 mouth every day Metoprolol Active Tablets ER 100mg 1 by Unknown Succinate ER 000 24HR mouth every day Keflex Hx Capsules 500mg 28caps 1 tab by M17.12 Genet 018 - mouth Rocky, four M.D. 018 times a day Oxycodone-Aceta Hx Tablets 5-325mg 90tabs 1-2 tabs Genet minophen 018 - by mouth Rocky, every M.D. 018 4-6 hours as needed for post-op pain Metoprolol /0 Hx Tablets 100mg take 1 Unknown Tartrate 000 - tablet by mouth 017 twice a day Baclofen /0 Hx Tablets 10mg take 1 Unknown 000 - tab every 12 018 hours Magnesium /0 Hx Tablets 400mg 1 by Unknown 000 - mouth daily 018 Medications Administered in Office Medication Date Status [...] Millicuries Vital Signs Date Vital Result Comment 09/22/2017 Height 63 inches 5'3" Weight 244.00 lb Heart Rate 80 /min BP Systolic 136 mmHg BP Diastolic 86 mmHg BMI (Body Mass Index) 43.2 kg/m2 08/02/2017 Height 63 inches 5'3" Weight 240.00 lb Heart Rate 76 /min BP Systolic 117 mmHg BP Diastolic 70 mmHg Body Temperature 98.0 F Pain Level 0 BMI (Body Mass Index) 42.5 kg/m2 06/21/2017 Height 63 inches 5'3" Heart Rate 89 /min BP Systolic 118 mmHg BP Diastolic 80 mmHg Respiratory Rate 18 /min Body Temperature 97.4 F Pain Level 0 06/04/2017 Height 63 inches 5'3" Weight 240.00 lb BP Systolic 136 mmHg BP Diastolic 74 mmHg Respiratory Rate 20 /min Pain Level 0 BMI (Body Mass Index) 42.5 kg/m2 05/26/2017 Height 63 inches 5'3" Weight 240.00 lb BP Systolic 100 mmHg BP Diastolic 64 mmHg Body Temperature 97.6 F Pain Level 3 BMI (Body Mass Index) 42.5 kg/m2 04/28/2017 Height 63 inches 5'3" Weight 245.00 [...] Color Yellow Urine Appearance Cloudy Urine Specific Lane 1.017 1.010-1.030 Urine pH 7.0 5-9 Urine [...] 3 Urine Appearance Cloudy [address] 1.018 1.010-1.030 3 Urine pH 7.0 5-9 [...] [address]: Genet Hidalgo MD Acct: [id number] Unit: [id number] AGE: 56 Location: [facility] Re04/28/17 SEX: F Status: REG REF SPEC: [id number] SANDRA: 04/28/17-[address] [facility] [address]: Genet Hidalgo MD REQ: [id number] RECD: 04/28/17 STATUS: COMP _ SOURCE: URINE [facility]: ORDERED: Urine Culture QUERIES: Urine Source: Clean Catch Procedure Result Reported Site Urine Culture Final 04/29/17- 09 ML No growth of clinically significant organisms * ML - MAIN LAB ([facility]) . END OF REPORT * ML=Testing performed at Main Lab DEPARTMENT OF PATHOLOGY, [address] [place] [address] Tono Colvin M.D. Director [facility] # [id number] 3 01/07 4 SEE RESULT BELOW Name: SIERRA REID : [address]: Genet Hidalgo MD Acct: [id number] Unit: [id number] AGE: 56 Location: PAT Re01/01/17 SEX: F Status: REG REF SPEC: [id number] SANDRA: 01/01/[address] [facility] [address]: Genet Hidalgo MD REQ: [id number] RECD: 01/01/17 STATUS: MARY BRADLEY DR: Jennifer Mooney Ma, MD _ SOURCE: URINE SPDESC: ORDERED: Urine Culture COMMENTS: JULISSA 01/07 QUERIES: Urine Source: Clean Catch Procedure Result Reported Site Urine Culture Final 01/02/17- 1236 ML No growth of clinically significant organisms * ML - MAIN LAB ([facility]) . END OF REPORT * ML=Testing performed at Main Lab DEPARTMENT OF PATHOLOGY, [address] [place] [address] Tono Colvin M.D. Director [facility] # [id number] 5 Because ethnic data is not always [...] 01/07 Procedures Date CPT Code Description Status 05/11/2017 84976 TKR Total Knee Replacement Completed 05/11/2017 89323 TKR Total Knee Replacement Completed 05/11/2017 47127 TKR Total Knee Replacement Completed 05/11/2017 73080 TKR Total Knee Replacement Completed 02/09/2017 49668 Stress Test Completed 02/09/2017 15504 Myocardial Perfusion Imaging Tomographic (Spect) Completed Multiple Studies 01/29/2017 07415 EKG Tracing & Interpretation Completed 01/14/2017 01644 ECHO Transthoracic, Real-Time 2D With Doppler And Color Completed Flow 01/14/2017 85710 ECHO Transthoracic, Real-Time 2D With Doppler And Color Completed Flow 01/01/2017 88129 EKG, Interpretation Only Completed 12/04/2014 73281 Color Flow Doppler/Interp & Reprt Completed 12/04/2014 30430 Pulse Wave/Continuous-Interp.RPT Completed 12/04/2014 25735 Echocardiography, Transesophageal, Real Time W/Image 2D Completed W/W/O M-M 12/04/2014 37198 ECHO Transthorasic Realtime 2D W Doppler & Color Flow Completed Hosp Encounters Type Date Location Provider CPT E/M Dx Office Visit 08/02/2017 [facility] Hidalgo M.D. 35187 M17.11 10:00a [facility] Z96.652 M25.561 M25.461 Office Visit 05/16/2017 10:46a [facility],latonia Otero M.D. 85717 [facility] E11.9 Z96.652 Office Visit 05/15/2017 10:45a [facility] Otero M.D. 99065 [facility] E11.9 Z96.652 Office Visit 05/14/2017 [facility] 09606 [facility] E11.9 Z96.652 Office Visit 05/13/2017 10:44a [facility]latonia Otero M.D. 41302 I[facility] Hospitalists E11.9 Z96.652 Office Visit 05/12/2017 10:43a [facility]latonia Otero M.D. 57876 I10 Hospitalists E11.9 Z96.652 Office Visit 05/11/2017 10:41a [facility] 91748 [facility] E11.9 Z96.652 Office Visit 03/11/2017 4:00p [facility] Josiane Velazquez M.D. 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 32189 Z01.810 Durable Medical Equipment Repairer R94.31 I63.9 R01.1 I45.10 M17.11 Office Visit 11/27/2016 10:00a [facility] Genet Hidalgo M.D. 12044 M25.562 [facility] M25.561 M25.461 M25.462 M17.0 Office Visit 11/04/2016 2:00p [place] [address] S62.645D Of [facility] S62.647D Office Visit 10/07/2016 1:15p [facility] [address] S62.645A Of [facility] S62.647A Office Visit 12/04/2014 10:36a [facility] Marni Sosa, 49330 I63.9 M.D. Office Visit 12/04/2014 3:51p [facility], Shavonne Otero, 65947 434.91 Hospitalists M.D. 250.00 401.9 272.4 Office Visit 12/03/2014 10:35a [facility] [address] G45.9 Office Visit 12/03/2014 3:50p [facility], Morteza Chávez, 09290 435.9 Hospitalists N.P. 250.00 401.9 Plan of Care Future Appointment(s):10/18/2017 1:45 pm - Genet Hidalgo M.D. at [facility]10/05/2017 9:30 am - MIGUELINA Haywood at [facility]10/05/2017 9:30 am - ADITYA Carmona at [facility]09/27/2017 2:40 pm - Josiane Velazquez M.D. at [facility]10/05/2017 9:30 am - Genet Hidalgo M.D. at [facility]09/22/2017 - Genet Hidalgo M.D.M17.11 Unilateral primary osteoarthritis, right kneeFollow up:Follow up: 2 weeks after iampivaR93.461 Effusion, right kneeM25.561 Pain in right knee
[2017-10-05] MEDS ORDERED: ROPIVACAINE 5 MG/ML 30 ML BTL (0.5%) ONE (09:08)
[2017-10-05] MEDS ORDERED: Bupivacaine 0.5% PF 10 ML VIAL INJ ONE (09:12)
[2017-10-05] MEDS ORDERED: EPHEDrine (Pressors)* 50 MG/ML VIAL ONE (10:56)
[2017-10-05] MEDS ORDERED: Ondansetron INJ* 2 MG/ML VIAL ONE (11:49)
[2017-10-05] MEDS ORDERED: Ketorolac INJ* 30 MG/ML 1 ML VIAL ONE (11:49)
[2017-10-05] MEDS ORDERED: diPHENhydraMINE IV* 50 MG/ML 1 ml VIAL (BENADRYL) IV PRN (12:06)
[2017-10-05] MEDS ORDERED: Bisacodyl SUPP* 10 MG SUPP PR PRN (12:06)
[2017-10-05] MEDS ORDERED: Morphine VIAL* 4 MG/ML VIAL (1 ml vial) IV PRN (12:06)
[2017-10-05] MEDS ORDERED: Cyclobenzaprine TAB* 10 MG PO PRN (12:06)
[2017-10-05] MEDS ORDERED: Magnesium Hydroxide LIQ* 30 ML UDC PO PRN (12:06)
[2017-10-05] MEDS ORDERED: Polyethylene Glycol 3350* 17 GM PACKET PO PRN (12:06)
[2017-10-05] MEDS ORDERED: Ondansetron TAB* 4 MG PO PRN (12:06)
[2017-10-05] MEDS ORDERED: Ondansetron INJ* 2 MG/ML VIAL IV PRN (12:06)
--- NOTE | 2017-10-05 12:59 | RAD ---
HISTORY: s/p right TKA COMPARISONS: September 22, 2017 VIEWS: 2, Frontal and lateral views of the right knee FINDINGS: BONE DENSITY: Normal. BONES: The patient is status post right knee arthroplasty. There is no hardware failure or osteolysis. JOINTS: The patient is status post right knee arthroplasty. ALIGNMENT: There is no dislocation. SOFT TISSUES: There is post surgical change to the soft tissues. OTHER FINDINGS: None. IMPRESSION: STATUS POST RIGHT KNEE ARTHROPLASTY
[2017-10-05] MEDS ORDERED: Acetaminophen TAB* 325 MG PO SCH (13:00)
[2017-10-05] MEDS ORDERED: oxyCODONE TAB* 5 MG TAB ONE (14:32)
[2017-10-05] MEDS: oxyCODONE TAB* 5 MG TAB PO PRN ×2 (14:35→18:28)
[2017-10-05] MEDS ORDERED: Dextrose 50% Syringe 50 ML* 25 GM/50 ML SYRINGE IV PUSH PRN (15:16)
[2017-10-05] MEDS: Acetaminophen TAB* 325 MG PO SCH ×2 (15:35→22:01)
[2017-10-05] MEDS ORDERED: Warfarin TAB(*) 6 MG PO ONE (17:00)
[2017-10-05] MEDS: Insulin LISPRO* 1 UNITS UNIT SUBCUT SCH (17:31)
--- NOTE | 2017-10-05 17:31 | CONS ---
CC: Dr. Genet Hidalgo; NABILA Ashley * CONSULTATION REPORT: DATE OF CONSULT: 10/05/17 ATTENDING PHYSICIAN: Dr. Silva Lutz (dictated by Nura Gaytan NP). PHYSICIAN REQUESTING CONSULTATION: Dr. Genet Hidalgo. REASON FOR CONSULTATION: Co-medical management in a patient with a history of CVA, hypertension, diabetes mellitus, right bundle-branch block, hyperlipidemia , and morbid obesity. HISTORY OF PRESENT ILLNESS: Ms. Sinclair is a 56-year-old female with past medical history significant for hypertension, hyperlipidemia, diabetes mellitus , right bundle-branch block, morbid obesity, CVA x3, and osteoarthritis, who presented to the hospital today for an elective right total knee arthroplasty with Dr. Hidalgo. Leading up to the patient's procedure today, she states she has been in her usual state of health. She denies any fevers, chills, chest pain, shortness of breath, nausea, vomiting, diarrhea, or urinary symptoms. The patient at baseline has some left-sided weakness due to her previous strokes. The patient has had an uneventful postop recovery so far. The hospitalists were asked to assist with co-medical of this patient during her hospitalization. PAST MEDICAL HISTORY: 1. Hypertension. 2. Hyperlipidemia. 3. Cerebrovascular accident x3. 4. Diabetes mellitus. 5. Overactive bladder. 6. Right bundle-branch block. 7. Osteoarthritis. 8. Morbid obesity, BMI of 43. PAST SURGICAL HISTORY: 1. Status post section x2. 2. Status post hernia repair. 3. Status post vein surgery to bilateral lower extremities. 4. Status post left total knee arthroplasty. 5. Status post tonsillectomy. MEDICATIONS: Home medications include: 1. Aspirin 81 mg oral daily. 2. Losartan 100 mg oral daily. 3. Amlodipine 5 mg oral daily. 4. Plavix 75 mg oral daily. 5. Citalopram 20 mg oral daily. 6. Metformin 1000 mg oral daily. 7. Oxybutynin 5 mg oral daily. 8. CoQ10 one tablet oral daily. 9. Multivitamin 1 tablet oral daily. 10. Metoprolol succinate 100 mg oral daily. 11. Colace 100 mg oral 2 to 3 times daily as needed for constipation. 12. Vitamin D 2000 mg oral daily in the winter, the patient is not currently taking. FAMILY HISTORY: The patient's father had a history of COPD and CHF. The patient's brother has a history of diabetes mellitus. Maternal grandmother with history of diabetes mellitus and coronary artery disease. Maternal grandfather with a history of diabetes mellitus. SOCIAL HISTORY: The patient denies tobacco, alcohol, or recreational drug use. She lives with her partner. Her partner, Marilu Ferguson, will be her surrogate decision maker in the event if she is unable to make decisions for herself. REVIEW OF SYSTEMS: I performed an 11-point review of systems. All the pertinent positives and negatives are mentioned in the history of present illness. The remaining review of systems are negative. PHYSICAL EXAMINATION: Vital Signs: Temperature 97.5, heart rate 70, respiratory rate 18, O2 sat 97% on room air, blood pressure 118/65. General Appearance: The patient is alert, pleasant, and appears to be in no acute distress. HEENT: Normocephalic, atraumatic. Pupils are equal and reactive to light. Extraocular movements are intact. Respiratory: There is no accessory muscle use. The lungs are clear to auscultation bilaterally. Cardiovascular: Regular rate and rhythm. S1, S2 present. There are no murmurs, rubs, or gallops heard. Abdomen: Soft, nontender, nondistended. There are bowel sounds present x4. Her abdomen is obese. Extremities: There is no lower extremity edema. DP and PT pulses are 2+ and symmetric. Musculoskeletal: There is no clubbing or cyanosis noted. The patient exhibits good strength in all extremities, but does have residual weakness in her left arm from previous CVA. Neurological: The patient is alert and oriented x4. Cranial nerves II through XII are grossly intact. Psychological: The patient is calm and cooperative. Skin: There are no rashes or abnormalities seen. The patient has a dressing to her right knee that is clean, dry, and intact. LABORATORY DATA: Preoperative labs from 09/22/17 show urinalysis that was negative with urine culture with no growth. Sodium 138, potassium 4.2, chloride 100, CO2 of 28, BUN 13, creatinine 0.63, glucose 98. White blood cell count 7.2, hemoglobin 12.8, hematocrit 39, platelet count 286. IMPRESSION: Ms. Sinclair is a 56-year-old female with past medical history significant for cerebrovascular accident, hypertension, diabetes, overactive bladder, right bundle-branch block, osteoarthritis, hyperlipidemia, and obesity , who presented to the emergency room for an elective right total knee arthroplasty with Dr. Hidalgo. The hospitalists have been asked to assist with the co-medical management of this patient during her hospitalization. ASSESSMENT/PLAN: 1. Status post right total knee arthroplasty. Postop day. Management will be per Orthopedic Surgery. The patient will have her H and H trended. She will have a Hemovac in place. She will have a urinary catheter in place until the morning, at which time it will be removed, and she will be placed on a bowel regimen and continued on pain medications. She will have physical therapy and occupation evaluations and continued treatment. 2. Diabetes mellitus. The patient's last hemoglobin A1c on 09/24/17 was 7.9. She will be continued on glucose checks a.c. and h.s. and lispro sliding scale a.c. I am going to hold her metformin while she is in the hospital. This can be resumed at discharge. 3. Hypertension. The patient is currently normotensive. With the anesthesia, I suspect she will stay on the lower side with labial blood pressures. For now , I am going to hold her losartan and amlodipine. These can be resumed when able. Additionally, I am going to split her metoprolol succinate into a b.i.d. dose instead of the once a day dose with hold parameters. She can likely resume her home medication dosing at discharge. 4. History of cerebrovascular accidents. The patient is being placed on warfarin. She should be resumed on aspirin and Plavix as soon as possible postoperatively. I will defer this decision to Orthopedic Surgery. She is not currently on a statin. 5. Morbid obesity. The patient's BMI is approximately 43. 6. Fluids, electrolytes, and nutrition. The patient will be on a clear liquid , advanced to a consistent carbohydrate diet as able. 7. Code status: Full code. 8. DVT prophylaxis: The patient will be on Lovenox bridged to warfarin per Orthopedic Surgery. 9. Disposition: Inpatient with disposition per Orthopedic Surgery. TIME SPENT: Time for this consultation was approximately 50 minutes, greater than half of that was spent with the patient and family discussing medications, past medical history, the events leading up to her arrival today, and performing a physical examination. Case has been reviewed with the attending, Dr. Lutz, who agrees with the plan of care. Thank you for this consultation, we will continue to follow along. NURA GAYTAN, NET WEB DEVELOPER [id number]/[facility] #: [id number] REGINA
[2017-10-05] MEDS: ceFAZolin 1 GM in Dextrose (*) 1 GM/50 ML BAG IVPB SCH (17:52)
[2017-10-05 19:09] LABS: ABS Basophils 0 10^3/ul (0-0.2); ABS Eosinophils 0.1 10^3/ul (0-0.6); ABS Lymphocytes 1.1 10^3/ul (1.0-4.8); ABS Monocytes 0.7 10^3/ul (0-0.8); ABS Neutrophils 9.3 10^3/ul (1.5-7.7); ABS Nucleated RBC 0 10^3/ul; Eosinophil % 0.8 % (0-6); Hematocrit 30 % (35-47); Hemoglobin 9.8 g/dl (12.0-16.0); Lymphocyte % 9.7 % (25-47); Mean Corpuscular HGB Conc 33 g/dl (31-36); Mean Corpuscular Hemoglobin 27 pg (27-31); Mean Corpuscular Volume 84 fL (80-97); Mean Platelet Volume 7.7 um3 (7.4-10.4); Nucleated Red Blood Cells % 0; Platelet Count 194 10^3/ul (150-450); Red Blood Count 3.58 10^6/ul (4.00-5.40); Red Cell Distribution Width 17 % (10.5-15); White Blood Count 11.3 10^3/ul (3.5-10.8)
[2017-10-05 19:16] LABS: INR 0.98 (0.77-1.02)
[2017-10-05 19:27] LABS: EGFR Non-African American 81.9 (>60)
[2017-10-05] MEDS ORDERED: metFORMIN* 1,000 MG TAB PO SCH (21:00)
[2017-10-05] MEDS: Magnesium Hydroxide LIQ* 30 ML UDC PO SCH (22:00)
[2017-10-05] MEDS: Docusate CAP* 100 MG PO SCH (22:01)
[2017-10-05] MEDS: oxyCODONE/Acetamin 5/325 MG* TAB PO PRN (22:02)
[2017-10-06] MEDS: ceFAZolin 1 GM in Dextrose (*) 1 GM/50 ML BAG IVPB SCH ×2 (01:08→09:33)
[2017-10-06] MEDS: Acetaminophen TAB* 325 MG PO SCH ×3 (05:50→23:00)
[2017-10-06] MEDS: oxyCODONE TAB* 5 MG TAB PO PRN ×3 (08:07→23:00)
[2017-10-06] MEDS: Insulin LISPRO* 1 UNITS UNIT SUBCUT SCH ×3 (08:13→17:45)
[2017-10-06] MEDS: Magnesium Hydroxide LIQ* 30 ML UDC PO SCH ×2 (08:14→21:36)
[2017-10-06] MEDS: Oxybutynin TAB* 5 MG PO SCH (08:14)
[2017-10-06] MEDS: Citalopram TAB* 20 MG PO SCH (08:14)
[2017-10-06] MEDS: Docusate CAP* 100 MG PO SCH ×2 (08:14→21:08)
[2017-10-06] MEDS: Metoprolol Succinate XL TAB* 50 MG PO SCH ×2 (08:14→21:08)
[2017-10-06 08:25] LABS: INR 1.02 (0.77-1.02)
[2017-10-06 08:28] LABS: ABS Basophils 0 10^3/ul (0-0.2); ABS Eosinophils 0.2 10^3/ul (0-0.6); ABS Lymphocytes 1.5 10^3/ul (1.0-4.8); ABS Monocytes 0.9 10^3/ul (0-0.8); ABS Neutrophils 5.3 10^3/ul (1.5-7.7); ABS Nucleated RBC 0 10^3/ul; Eosinophil % 2.3 % (0-6); Hematocrit 29 % (35-47); Hemoglobin 9.9 g/dl (12.0-16.0); Lymphocyte % 18.6 % (25-47); Mean Corpuscular HGB Conc 34 g/dl (31-36); Mean Corpuscular Hemoglobin 28 pg (27-31); Mean Corpuscular Volume 83 fL (80-97); Mean Platelet Volume 8.4 um3 (7.4-10.4); Nucleated Red Blood Cells % 0.1; Platelet Count 185 10^3/ul (150-450); Red Blood Count 3.52 10^6/ul (4.00-5.40); Red Cell Distribution Width 17 % (10.5-15); White Blood Count 7.9 10^3/ul (3.5-10.8)
[2017-10-06] MEDS ORDERED: Losartan TAB* 25 MG PO SCH (09:00)
[2017-10-06] MEDS ORDERED: Metoprolol Succinate XL TAB* 100 MG PO SCH (09:00)
[2017-10-06] MEDS ORDERED: amLODIPine TAB* 5 MG PO SCH (09:00)
[2017-10-06 09:17] LABS: EGFR Non-African American 90.4 (>60)
--- NOTE | 2017-10-06 10:40 | PN ---
Progress Note - Progress Note Date of Service: 10/06/17 SOAP: Subjective: []Patient seen OOB in chair. She is feeling well with tolerable right knee pain. Denies CP, SOB, dizziness. BP has been low but she has remained asymptomatic. Objective: [] General: Well appearing, NAD RLE: Dressing CDI, drain removed by Dr Hidalgo this morning without complication. DF/PF intact. DP2+, sensation intact distally. BL calves supple and nontender without erythema, edema or palpable cords Assessment: []POD 1 SP right total knee arthroplasty Plan: []WBAT PT/OT Lovenox bridge to coumadin 6 mg today. Will restart plavix today and hold aspirin until lovenox is complete, at which time patient can resume ASA 81mg Laboratory Last Values WBC 7.9 10^3/ul (3.5-10.8) 10/06/17 07:03 RBC 3.52 10^6/ul (4.00-5.40) L 10/06/17 07:03 Hgb 9.9 g/dl (12.0-16.0) L 10/06/17 07:03 Hct 29 % (35-47) L 10/06/17 07:03 MCV 83 fL (80-97) 10/06/17 07:03 MCH 28 pg (27-31) 10/06/17 07:03 MCHC 34 g/dl (31-36) 10/06/17 07:03 RDW 17 % (10.5-15) H 10/06/17 07:03 Plt Count 185 10^3/ul (150-450) 10/06/17 07:03 MPV 8.4 um3 (7.4-10.4) 10/06/17 07:03 Neut % (Auto) 67.8 % (38-83) 10/06/17 07:03 Lymph % (Auto) 18.6 % (25-47) L 10/06/17 07:03 Mcmullen % (Auto) 10.9 % (0-7) H 10/06/17 07:03 Eos % (Auto) 2.3 % (0-6) 10/06/17 07:03 Baso % (Auto) 0.4 % (0-2) 10/06/17 07:03 Absolute Neuts (auto) 5.3 10^3/ul (1.5-7.7) 10/06/17 07:03 Absolute Lymphs (auto) 1.5 10^3/ul (1.0-4.8) 10/06/17 07:03 Absolute Monos (auto) 0.9 10^3/ul (0-0.8) H 10/06/17 07:03 Absolute Eos (auto) 0.2 10^3/ul (0-0.6) 10/06/17 07:03 Absolute Basos (auto) 0 10^3/ul (0-0.2) 10/06/17 07:03 Absolute Nucleated RBC 0 10^3/ul 10/06/17 07:03 Nucleated RBC % 0.1 10/06/17 07:03 INR (Anticoag Therapy) 1.02 (0.77-1.02) 10/06/17 07:03 Sodium 137 mmol/L (135-145) 10/06/17 07:03 Potassium 4.4 mmol/L (3.5-5.0) 10/06/17 07:03 Chloride 102 mmol/L (101-111) 10/06/17 07:03 Carbon Dioxide 28 mmol/L (22-32) 10/06/17 07:03 Anion Gap 7 mmol/L (2-11) 10/06/17 07:03 BUN 16 mg/dL (6-24) 10/06/17 07:03 Creatinine 0.67 mg/dL (0.51-0.95) 10/06/17 07:03 Est GFR ( Amer) 109.4 (>60) 10/06/17 07:03 Est GFR (Non-Af Amer) 90.4 (>60) 10/06/17 07:03 BUN/Creatinine Ratio 23.9 (8-20) H 10/06/17 07:03 Glucose 136 mg/dL (70-100) H 10/06/17 07:03 POC Glucose (mg/dL) 144 mg/dL (70-100) H 10/06/17 07:14 Calcium 8.7 mg/dL (8.6-10.3) 10/06/17 07:03 Laboratory Last Values WBC 7.9 10^3/ul (3.5-10.8) 10/06/17 07:03 RBC 3.52 10^6/ul (4.00-5.40) L 10/06/17 07:03 Hgb 9.9 g/dl (12.0-16.0) L 10/06/17 07:03 Hct 29 % (35-47) L 10/06/17 07:03 MCV 83 fL (80-97) 10/06/17 07:03 MCH 28 pg (27-31) 10/06/17 07:03 MCHC 34 g/dl (31-36) 10/06/17 07:03 RDW 17 % (10.5-15) H 10/06/17 07:03 Plt Count 185 10^3/ul (150-450) 10/06/17 07:03 MPV 8.4 um3 (7.4-10.4) 10/06/17 07:03 Neut % (Auto) 67.8 % (38-83) 10/06/17 07:03 Lymph % (Auto) 18.6 % (25-47) L 10/06/17 07:03 Mcmullen % (Auto) 10.9 % (0-7) H 10/06/17 07:03 Eos % (Auto) 2.3 % (0-6) 10/06/17 07:03 Baso % (Auto) 0.4 % (0-2) 10/06/17 07:03 Absolute Neuts (auto) 5.3 10^3/ul (1.5-7.7) 10/06/17 07:03 Absolute Lymphs (auto) 1.5 10^3/ul (1.0-4.8) 10/06/17 07:03 Absolute Monos (auto) 0.9 10^3/ul (0-0.8) H 10/06/17 07:03 Absolute Eos (auto) 0.2 10^3/ul (0-0.6) 10/06/17 07:03 Absolute Basos (auto) 0 10^3/ul (0-0.2) 10/06/17 07:03 Absolute Nucleated RBC 0 10^3/ul 10/06/17 07:03 Nucleated RBC % 0.1 10/06/17 07:03 INR (Anticoag Therapy) 1.02 (0.77-1.02) 10/06/17 07:03 Sodium 137 mmol/L (135-145) 10/06/17 07:03 Potassium 4.4 mmol/L (3.5-5.0) 10/06/17 07:03 Chloride 102 mmol/L (101-111) 10/06/17 07:03 Carbon Dioxide 28 mmol/L (22-32) 10/06/17 07:03 Anion Gap 7 mmol/L (2-11) 10/06/17 07:03 BUN 16 mg/dL (6-24) 10/06/17 07:03 Creatinine 0.67 mg/dL (0.51-0.95) 10/06/17 07:03 Est GFR ( Amer) 109.4 (>60) 10/06/17 07:03 Est GFR (Non-Af Amer) 90.4 (>60) 10/06/17 07:03 BUN/Creatinine Ratio 23.9 (8-20) H 10/06/17 07:03 Glucose 136 mg/dL (70-100) H 10/06/17 07:03 POC Glucose (mg/dL) 144 mg/dL (70-100) H 10/06/17 07:14 Calcium 8.7 mg/dL (8.6-10.3) 10/06/17 07:03
[2017-10-06] MEDS: Enoxaparin(*) 40 MG/0.4 ML SYR SUBCUT SCH (11:40)
--- NOTE | 2017-10-06 13:27 | OP ---
DATE OF OPERATION: 10/05/17 - ROOM #342 DATE OF : 56 SURGEON: Genet Hidalgo MD CONING MACHINE OPERATOR: ADITYA Gutierrez. Ms. Wells did help throughout the procedure with preparation of the leg, wound retraction, manipulation of the knee and wound closure. ANESTHESIOLOGIST: Dr. Wesley. ANESTHESIA: Spinal with adductor nerve block. PRE-OP DIAGNOSIS: Severe end-stage degenerative osteoarthritis of the right knee joint. POST-OP DIAGNOSIS: Severe end-stage degenerative osteoarthritis of the right knee joint. OPERATIVE PROCEDURE: Right total knee arthroplasty. INDICATIONS: Ms. Sinclair is a 56-year-old female with years of increasingly severe right knee pain. Radiographs showed [id number] arthritis. She failed conservative treatment with anti-inflammatories, pain medications, intra- articular injections, and physical therapy. Due to continued pain and decreased quality of life, she elected to under right total knee arthroplasty. Informed consent was obtained from the patient. She understood the risks of surgery included, but were not limited to, bleeding, infection, damage to nearby structures, continued pain, need for further surgery, intraoperative fracture, nerve palsy, hardware failure or loosening, knee stiffness, loss of motion, stroke, heart attack, blood clot, and . She wished to proceed. TOURNIQUET TIME: 46 minutes. SPECIMEN: Bone and cartilage from the right knee joint sent to Pathology. COMPLICATIONS: None. HARDWARE USED: This is cemented [employer] total knee arthroplasty hardware. Two packages of Simplex bone cement were used. For the femur, a right size 5 posterior stabilized Legion Oxinium femoral component. For the tibia, a size 4 right tibial baseplate Romelia II. For the insert, 10- or 11- mm posterior stabilized articular insert size 3-4 and for the patella 32-mm 3 peg all poly patella. INTRAOPERATIVE FINDINGS: Intraoperatively, the patient was noted to have severe end-stage arthritis, which was tricompartmental. She had full-thickness loss of cartilage in all 3 compartments. She had extensive osteophyte formation in all 3 compartments. DESCRIPTION OF PROCEDURE: Ms. Sinclair was identified in the preanesthesia unit. Her right lower extremity was marked as the correct operative side. Informed consent was signed and placed in the chart. The patient was taken to the operating room and placed under spinal anesthesia. Wilkerson catheter was placed. Tourniquet was placed on the right thigh. Right lower extremity was prepped and draped in the usual sterile fashion. Preop time-out was made to correctly identify the patient's side and site. Appropriate perioperative antibiotics were given within 1 hour of incision. Tourniquet was inflated and total tourniquet time for this procedure was 46 minutes. A 12-cm midline incision was made with a 10 blade and carried down to the extensor mechanism. A new 10 blade was used to make a standard medial parapatellar arthrotomy. The patella was subluxed laterally. Electrocautery was used to subperiosteally elevate the soft tissue off the superomedial tibia to the mid sagittal plane. The knee was flexed up. Anterior horn of the lateral meniscus and ACL were sharply released. A drill was used to enter the distal femur. Intramedullary distal femoral cutting guide was pinned on the distal femur. Oscillating saw was used to make the distal femoral cut. External rotation guide was pinned on the distal femur and the distal femur was sized to a size 5. Size 5 multi-cutting jig was pinned on the distal femur. Oscillating saw was used to make the appropriate 4 chamfer cuts. The PCL was completely released. The tibia was subluxed anteriorly. Extramedullary tibial cutting guide was pinned on the proximal tibia. Oscillating saw was used to make the proximal tibial cut perpendicular to the mechanical axis of the tibia. The bone was carefully removed. The knee was brought out into full extension. Spacer block had excellent fit with medial and lateral ligamentous balancing. Flexion and extension gaps were well balanced. The knee was flexed up. A lamina collet driller was placed both medially and laterally. Any remaining meniscus was carefully removed using electrocautery. Posterior osteophytes were removed using a curved osteotome and curette. Tibial tray and drop seble were placed and once again confirmed a satisfactory tibial cut. A right size 5 femoral trial was impacted on to the distal femur and had excellent stability and fit. The box for the posterior stabilized implant was prepared using a reamer and box cut osteotome. Size 4 tibial tray trial with an 11-mm insert trial was placed and the knee was taken through range of motion. The knee was stable in all positions with full extension and 130 degrees of flexion. There was satisfactory patellofemoral tracking. The patella was everted. 9 mm of patellar bone and cartilage was carefully removed using an oscillating saw. The patella was sized to a size 32. The 3 peg holes were drilled through the size 32 guide. A 32 trial patella was placed and the knee was taken through a range of motion. There was satisfactory patellofemoral tracking. All trials were removed. The tibia was subluxed anteriorly and sized to a size 4. Proximal tibia was prepared using a size 4 keel punch. All bony cut surfaces were copiously irrigated with sterile saline and dried. Final implants were cemented into place starting with the tibia, followed by the femur , and lastly the patella. An 11-mm insert trial was placed and the knee was taken out into full extension. Tourniquet was turned down at 46 minutes. The knee was copiously irrigated with sterile saline. Electrocautery was used to obtain meticulous hemostasis. Once the cement had fully cured, the insert trial was removed. Any excess cement was removed from around the capsule and hardware. Final insert chosen was an 11-mm posterior stabilized Romelia II articular insert, size 3/4. This was locked into position on the tibial tray without difficulty. Stability of the insert was checked and rechecked and noted to be stable. The knee was copiously irrigated with sterile saline. The extensor mechanism was closed using interrupted #1 Vicryls over a medium Hemovac drain. The rest of the incision was closed in a layered fashion using 0 and 2-0 Vicryls. Skin was closed using running 3-0 nylon suture. Sterile Xeroform, 4x4s, and Webril were used to cover the incision. Riky wrap and cold pack were placed over this. The patient's anesthesia was reversed without difficulty. She was taken to the PACU in stable condition. Intended weightbearing is weightbearing as tolerated. Intended DVT prophylaxis will be Coumadin with a Lovenox bridge. [id number]/[facility] #: [id number] REGINA
[2017-10-06] MEDS: oxyCODONE/Acetamin 5/325 MG* TAB PO PRN ×2 (15:36→21:08)
[2017-10-06] MEDS: Clopidogrel TAB* 75 MG PO SCH (15:36)
--- NOTE | 2017-10-06 16:14 | PN ---
Subjective Date of Service: 10/06/17 Interval History: . Family History: Unchanged from Admission Social History: Unchanged from Admission Past Medical History: Unchanged from Admission Objective Active Medications: Acetaminophen (Tylenol Tab*) 975 mg PO Q8HR [facility] Last Admin: 10/06/17 14:19 Dose: Not Given Bisacodyl (Dulcolax Supp*) 10 mg AL DAILY PRN PRN Reason: constipation Citalopram Hydrobromide (Celexa Tab*) 20 mg PO QAM [facility] Last Admin: 10/06/17 08:14 Dose: 20 mg Clopidogrel Bisulfate (Plavix Tab*) 75 mg PO DAILY [facility] Last Admin: 10/06/17 15:36 Dose: 75 mg Cyclobenzaprine HCl (Flexeril Tab*) 10 mg PO TID PRN PRN Reason: SPASMS Dextrose (D50w Syringe 50 Ml*) 12.5 gm IV PUSH .FOR FS < 60 - SS PRN PRN Reason: FS < 60 Diphenhydramine HCl (Benadryl Iv*) 12.5 mg IV Q6H PRN PRN Reason: PRURITIS Docusate Sodium (Colace Cap*) 100 mg PO BID [facility] Last Admin: 10/06/17 08:14 Dose: 100 mg Enoxaparin Sodium (Lovenox(*)) 40 mg SUBCUT Q24H [facility] Last Admin: 10/06/17 11:40 Dose: 40 mg Lactated Ringer's (Lactated Ringers 1000 Ml Bag*) 1,000 mls @ 100 mls/hr IV PER RATE [facility] Last Admin: 10/06/17 00:18 Dose: 100 mls/hr Insulin Human Lispro (Humalog*) 0 - 10 units SUBCUT [facility]; Protocol Last Admin: 10/06/17 12:26 Dose: 2 unit Lactulose (Lactulose*) 30 ml PO Q6H PRN PRN Reason: constipation Magnesium Hydroxide (Milk Of Magnesia Liq*) 30 ml PO BID [facility] Last Admin: 10/06/17 08:14 Dose: 30 ml Magnesium Hydroxide (Milk Of Magnesia Liq*) 30 ml PO Q6H PRN PRN Reason: constipation Metoprolol Succinate (Toprol Xl Tab*) 50 mg PO BID [facility] Last Admin: 10/06/17 08:14 Dose: 50 mg Morphine Sulfate (Morphine Vial*) 2 mg IV Q2H PRN PRN Reason: PAIN Ondansetron HCl (Zofran Inj*) 4 mg IV Q6H PRN PRN Reason: nausea Ondansetron HCl (Zofran Tab*) 4 mg PO Q6H PRN PRN Reason: NAUSEA Oxybutynin Chloride (Ditropan Tab*) 5 mg PO QAM [facility] Last Admin: 10/06/17 08:14 Dose: 5 mg Oxycodone HCl (Roxycodone Tab*) 10 mg PO Q4H PRN PRN Reason: SEVERE PAIN Last Admin: 10/06/17 12:26 Dose: 10 mg Oxycodone/Acetaminophen (Percocet 5/325 Tab*) 1 tab PO Q4H PRN PRN Reason: PAIN Oxycodone/Acetaminophen (Percocet 5/325 Tab*) 2 tab PO Q4H PRN PRN Reason: PAIN Last Admin: 10/06/17 15:36 Dose: 2 tab Pharmacy Profile Note (Coumadin Daily Reminder*) 0 note FOLLOW UP 1700 [facility] Last Admin: 10/05/17 18:02 Dose: 1 note Polyethylene Glycol/Electrolytes (Miralax*) 17 gm PO DAILY PRN PRN Reason: Constipation Warfarin Sodium (Coumadin Tab(*)) 6 mg PO ONCE@1700 [facility]; Protocol Stop: 10/06/17 17:01 Vital Signs - 8 hr 10/06/17 10/06/17 10/06/17 08:07 10:55 11:45 Temperature 97.3 F Pulse Rate 82 Respiratory 16 18 18 Rate Blood Pressure 145/75 (mmHg) O2 Sat by Pulse 96 Oximetry 10/06/17 10/06/17 10/06/17 12:26 14:19 15:25 Temperature 98.2 F Pulse Rate 92 Respiratory 16 18 18 Rate Blood Pressure 140/73 (mmHg) O2 Sat by Pulse 95 Oximetry 10/06/17 15:36 Temperature Pulse Rate Respiratory 18 Rate Blood Pressure (mmHg) O2 Sat by Pulse Oximetry Oxygen Devices in Use Now: None Extremities: - Result Diagrams: 10/07/17 06:00 10/06/17 07:03 Assess/Plan/Problems-Billing Assessment:
--- NOTE | 2017-10-06 16:23 | PN ---
Subjective Date of Service: 10/06/17 Interval History: Ms. Sinclair is a 56 y.o female with a past medical hx significant for CVA with left sided weakness, HTN,HLD, osteoarthritis Right BBB, DM who [place] [facility] [place] Family History: Unchanged from Admission Social History: Unchanged from Admission Past Medical History: Unchanged from Admission Objective Active Medications: Acetaminophen (Tylenol Tab*) 975 mg PO Q8HR [facility] Last Admin: 10/06/17 14:19 Dose: Not Given Bisacodyl (Dulcolax Supp*) 10 mg NE DAILY PRN PRN Reason: constipation Citalopram Hydrobromide (Celexa Tab*) 20 mg PO QAM [facility] Last Admin: 10/06/17 08:14 Dose: 20 mg Clopidogrel Bisulfate (Plavix Tab*) 75 mg PO DAILY [facility] Last Admin: 10/06/17 15:36 Dose: 75 mg Cyclobenzaprine HCl (Flexeril Tab*) 10 mg PO TID PRN PRN Reason: SPASMS Dextrose (D50w Syringe 50 Ml*) 12.5 gm IV PUSH .FOR FS < 60 - SS PRN PRN Reason: FS < 60 Diphenhydramine HCl (Benadryl Iv*) 12.5 mg IV Q6H PRN PRN Reason: PRURITIS Docusate Sodium (Colace Cap*) 100 mg PO BID [facility] Last Admin: 10/06/17 08:14 Dose: 100 mg Enoxaparin Sodium (Lovenox(*)) 40 mg SUBCUT Q24H [facility] Last Admin: 10/06/17 11:40 Dose: 40 mg Lactated Ringer's (Lactated Ringers 1000 Ml Bag*) 1,000 mls @ 100 mls/hr IV PER RATE [facility] Last Admin: 10/06/17 00:18 Dose: 100 mls/hr Insulin Human Lispro (Humalog*) 0 - 10 units SUBCUT AC [facility]; Protocol Last Admin: 10/06/17 12:26 Dose: 2 unit Lactulose (Lactulose*) 30 ml PO Q6H PRN PRN Reason: constipation Magnesium Hydroxide (Milk Of Magnesia Liq*) 30 ml PO BID [facility] Last Admin: 10/06/17 08:14 Dose: 30 ml Magnesium Hydroxide (Milk Of Magnesia Liq*) 30 ml PO Q6H PRN PRN Reason: constipation Metoprolol Succinate (Toprol Xl Tab*) 50 mg PO BID [facility] Last Admin: 10/06/17 08:14 Dose: 50 mg Morphine Sulfate (Morphine Vial*) 2 mg IV Q2H PRN PRN Reason: PAIN Ondansetron HCl (Zofran Inj*) 4 mg IV Q6H PRN PRN Reason: nausea Ondansetron HCl (Zofran Tab*) 4 mg PO Q6H PRN PRN Reason: NAUSEA Oxybutynin Chloride (Ditropan Tab*) 5 mg PO QAM [facility] Last Admin: 10/06/17 08:14 Dose: 5 mg Oxycodone HCl (Roxycodone Tab*) 10 mg PO Q4H PRN PRN Reason: SEVERE PAIN Last Admin: 10/06/17 12:26 Dose: 10 mg Oxycodone/Acetaminophen (Percocet 5/325 Tab*) 1 tab PO Q4H PRN PRN Reason: PAIN Oxycodone/Acetaminophen (Percocet 5/325 Tab*) 2 tab PO Q4H PRN PRN Reason: PAIN Last Admin: 10/06/17 15:36 Dose: 2 tab Pharmacy Profile Note (Coumadin Daily Reminder*) 0 note FOLLOW UP 1700 [facility] Last Admin: 10/05/17 18:02 Dose: 1 note Polyethylene Glycol/Electrolytes (Miralax*) 17 gm PO DAILY PRN PRN Reason: Constipation Warfarin Sodium (Coumadin Tab(*)) 6 mg PO ONCE@1700 [facility]; Protocol Stop: 10/06/17 17:01 Vital Signs - 8 hr 10/06/17 10/06/17 10/06/17 10:55 11:45 12:26 Temperature 97.3 F Pulse Rate 82 Respiratory 18 18 16 Rate Blood Pressure 145/75 (mmHg) O2 Sat by Pulse 96 Oximetry 10/06/17 10/06/17 10/06/17 14:19 15:25 15:36 Temperature 98.2 F Pulse Rate 92 Respiratory 18 18 18 Rate Blood Pressure 140/73 (mmHg) O2 Sat by Pulse 95 Oximetry 10/06/17 16:00 Temperature Pulse Rate Respiratory Rate Blood Pressure (mmHg) O2 Sat by Pulse 95 Oximetry Oxygen Devices in Use Now: None Appearance: Apppears comfortable resting in bed. Eyes: No Scleral Icterus Ears/Nose/Mouth/Throat: NL Teeth, Lips, Gums, Mucous Membranes Moist Neck: NL Appearance and Movements; NL JVP, Trachea Midline Respiratory: Symmetrical Chest Expansion and Respiratory Effort Cardiovascular: NL Sounds; No Murmurs; No JVD, No Edema Abdominal: NL Sounds; No Tenderness; No Distention Extremities: No Edema, No Clubbing, Cyanosis Skin: No Rash or Ulcers, - - right knee dressing intact , Pedal pulses + 2 Neurological: Alert and Oriented x 3 Nutrition: Taking PO's Result Diagrams: 10/06/17 07:03 10/06/17 07:03 Assess/Plan/Problems-Billing Assessment: Ms. Sinclair is a 56 y.o femlae with a hx of CVA, osteoarthritis, HTN, HLD, DM, Right bundle branch block who [place] [facility] Right TKA with Dr. Faria. - Patient Problems (1) Total knee replacement status Current Visit: No Status: Acute Code(s): Z96.659 - PRESENCE OF UNSPECIFIED ARTIFICIAL KNEE JOINT SNOMED Code(s): 5478943980576 Comment: s/p Right TKA _ management per Orthopedics -Pt/Ot as per orthopedics - DVT prop as per Orthopedics (2) DM type 2 (diabetes mellitus, type 2) Current Visit: No Status: Acute Comment: BG 112-186 Hold metformin Lispro SS and fingerstick monitoring (3) HTN (hypertension) Current Visit: No Status: Chronic Priority: Medium Code(s): I10 - ESSENTIAL (PRIMARY) HYPERTENSION SNOMED Code(s): 53529775 Comment: On metorpolol and losartan. cont to hold Norvasc SBP in 140's now but was 95 this AM -may neeed to restart Norvasc if continues to be high (4) DVT prophylaxis Current Visit: No Status: Acute Code(s): IXX7975 - SNOMED Code(s): 661175094 Comment: lovenox- per ortho Coumadin - per ortho Plavix- restart when able to per orthopedics -Would hold ASA for now. (5) Full code status Current Visit: Yes Status: Acute Code(s): Z78.9 - OTHER SPECIFIED HEALTH STATUS SNOMED Code(s): 274532099 Status and Disposition: Inpatient - discharge per ortho
[2017-10-06] MEDS ORDERED: Warfarin TAB(*) 6 MG PO SCH (17:00)
[2017-10-07] MEDS: oxyCODONE/Acetamin 5/325 MG* TAB PO PRN (05:09)
[2017-10-07 06:10] LABS: ABS Basophils 0 10^3/ul (0-0.2); ABS Eosinophils 0.1 10^3/ul (0-0.6); ABS Lymphocytes 1.6 10^3/ul (1.0-4.8); ABS Monocytes 1.1 10^3/ul (0-0.8); ABS Neutrophils 6.2 10^3/ul (1.5-7.7); ABS Nucleated RBC 0 10^3/ul; Eosinophil % 1.2 % (0-6); Hematocrit 29 % (35-47); Hemoglobin 9.8 g/dl (12.0-16.0); Lymphocyte % 17.7 % (25-47); Mean Corpuscular HGB Conc 34 g/dl (31-36); Mean Corpuscular Hemoglobin 28 pg (27-31); Mean Corpuscular Volume 84 fL (80-97); Mean Platelet Volume 7.9 um3 (7.4-10.4); Nucleated Red Blood Cells % 0.1; Platelet Count 192 10^3/ul (150-450); Red Cell Distribution Width 17 % (10.5-15); White Blood Count 9.1 10^3/ul (3.5-10.8)
[2017-10-07 06:17] LABS: INR 1.55 (0.77-1.02)
[2017-10-07] MEDS: Acetaminophen TAB* 325 MG PO SCH (06:19)
--- NOTE | 2017-10-07 07:16 | PN ---
Progress Note - Progress Note Date of Service: 10/07/17 SOAP: Subjective: resting comfortably with no complaints Objective: Vital Signs Temp Pulse Resp BP Pulse Ox 99.2 F 103 18 143/72 94 10/06/17 23:48 10/06/17 23:48 10/07/17 05:09 10/06/17 23:48 10/07/17 00:00 Laboratory Last Values WBC 9.1 10^3/ul (3.5-10.8) 10/07/17 06:00 RBC 3.50 10^6/ul (4.00-5.40) L 10/07/17 06:00 Hgb 9.8 g/dl (12.0-16.0) L 10/07/17 06:00 Hct 29 % (35-47) L 10/07/17 06:00 MCV 84 fL (80-97) 10/07/17 06:00 MCH 28 pg (27-31) 10/07/17 06:00 MCHC 34 g/dl (31-36) 10/07/17 06:00 RDW 17 % (10.5-15) H 10/07/17 06:00 Plt Count 192 10^3/ul (150-450) 10/07/17 06:00 MPV 7.9 um3 (7.4-10.4) 10/07/17 06:00 Neut % (Auto) 68.7 % (38-83) 10/07/17 06:00 Lymph % (Auto) 17.7 % (25-47) L 10/07/17 06:00 [place] % (Auto) 11.9 % (0-7) H 10/07/17 06:00 Eos % (Auto) 1.2 % (0-6) 10/07/17 06:00 Baso % (Auto) 0.5 % (0-2) 10/07/17 06:00 Absolute Neuts (auto) 6.2 10^3/ul (1.5-7.7) 10/07/17 06:00 Absolute Lymphs (auto) 1.6 10^3/ul (1.0-4.8) 10/07/17 06:00 Absolute Monos (auto) 1.1 10^3/ul (0-0.8) H 10/07/17 06:00 Absolute Eos (auto) 0.1 10^3/ul (0-0.6) 10/07/17 06:00 Absolute Basos (auto) 0 10^3/ul (0-0.2) 10/07/17 06:00 Absolute Nucleated RBC 0 10^3/ul 10/07/17 06:00 Nucleated RBC % 0.1 10/07/17 06:00 INR (Anticoag Therapy) 1.55 (0.77-1.02) H 10/07/17 06:00 Sodium 137 mmol/L (135-145) 10/06/17 07:03 Potassium 4.4 mmol/L (3.5-5.0) 10/06/17 07:03 Chloride 102 mmol/L (101-111) 10/06/17 07:03 Carbon Dioxide 28 mmol/L (22-32) 10/06/17 07:03 Anion Gap 7 mmol/L (2-11) 10/06/17 07:03 BUN 16 mg/dL (6-24) 10/06/17 07:03 Creatinine 0.67 mg/dL (0.51-0.95) 10/06/17 07:03 Est GFR ( Amer) 109.4 (>60) 10/06/17 07:03 Est GFR (Non-Af Amer) 90.4 (>60) 10/06/17 07:03 BUN/Creatinine Ratio 23.9 (8-20) H 10/06/17 07:03 Glucose 136 mg/dL (70-100) H 10/06/17 07:03 POC Glucose (mg/dL) 162 mg/dL (70-100) H 10/06/17 20:58 Calcium 8.7 mg/dL (8.6-10.3) 10/06/17 07:03 incision: c/d; dressing changed PE: NVI Assessment: s/p right TKA; POD#2 Plan: 1) PT/OT- WBAT 2) Coumadin/Plavix/Lovenox for DVT prophylaxis ( history of multiple strokes) 3) will get Lovenox today before DC; once home will restart ASA 81mg QD 4) Home today
[2017-10-07] MEDS: Insulin LISPRO* 1 UNITS UNIT SUBCUT SCH ×2 (07:56→11:56)
[2017-10-07] MEDS: Magnesium Hydroxide LIQ* 30 ML UDC PO SCH (08:28)
[2017-10-07] MEDS: Oxybutynin TAB* 5 MG PO SCH (08:29)
[2017-10-07] MEDS: Citalopram TAB* 20 MG PO SCH (08:29)
[2017-10-07] MEDS: Clopidogrel TAB* 75 MG PO SCH (08:29)
[2017-10-07] MEDS: oxyCODONE TAB* 5 MG TAB PO PRN (08:29)
[2017-10-07] MEDS: Docusate CAP* 100 MG PO SCH (08:29)
[2017-10-07] MEDS: Metoprolol Succinate XL TAB* 50 MG PO SCH (08:29)
[2017-10-07 11:27] VITALS: BP 120/62
[2017-10-07] MEDS: Enoxaparin(*) 40 MG/0.4 ML SYR SUBCUT SCH (11:27)
--- NOTE | 2017-10-07 17:58 | DS ---
DISCHARGE SUMMARY: DATE OF ADMISSION: 10/05/17 DATE OF DISCHARGE: 10/07/17 SURGEON: Dr. Genet Hidalgo.* (DICTATED BY ADITYA MCWILLIAMS) [employer]: ADITYA Gutierrez POSTOPERATIVE DIAGNOSIS: Severe end-stage degenerative osteoarthritis of the right knee joint. OPERATIVE PROCEDURE: Right total knee arthroplasty. INDICATION AND HISTORY: Ms. Sinclair is a 56-year-old female with years of increasingly severe right knee pain. Radiographs showed [id number] arthritis. She failed conservative treatment. She elected to undergo a right total knee arthroplasty. HOSPITAL COURSE: The patient was admitted to [facility] on . She underwent a right total knee arthroplasty without complications. She recovered briefly in the PACU and was transferred to the short-stay surgical unit. She was followed by our hospitalist team as well as Physical Therapy and Occupational Therapy during her stay. Postop day 1, she was well appearing, in no acute distress. Dressing is clean, dry, and intact. Drain was removed by Dr. Hidalgo on postop day 1 without complication. Dorsiflexion and plantarflexion intact. DP 2+. Sensation intact distally. Calf supple and nontender without erythema, edema, or palpable cords. Medicine followed her during her stay. She does have a history of CVA. With their recommendation, it was decided that she would continue with her Plavix during postop day 1, started her on Lovenox on postop day 1 and she started Coumadin on her operative day. We held aspirin during her hospital stay while she was on Lovenox. On postop day 2, her dressing was changed. Incision clean, dry, and intact. She was neurovascularly intact. She seemed to be medically and orthopedically stable for discharge home. Vitals: Temp 99.2, pulse 103, respiratory rate 18, blood pressure 123/72, pulse ox 94. Hemoglobin 9.8, hematocrit 29. INR 1.55. DISCHARGE MEDICATIONS: 1. Plavix 75 mg p.o. q.a.m. 2. Celexa 20 mg p.o. q.a.m. 3. Metformin 1000 mg p.o. at bedtime. 4. Oxybutynin 5 mg p.o. q.a.m. 5. Amlodipine 5 mg p.o. q.a.m. 6. CoQ10 of 100 mg p.o. q.a.m. 7. Aspirin 81 mg p.o. q.a.m. 8. Multivitamin. 9. Losartan 100 mg p.o. q.a.m. 10. Metoprolol succinate 100 mg p.o. q.a.m. New Medications include: 1. Acetaminophen 975 p.o. q.8 hours p.r.n. 2. Docusate 100 mg p.o. b.i.d. p.r.n. constipation. 3. Percocet 5/325 one to two tabs every 4 to 6 hours as needed for pain, max daily dose of 10. 4. Warfarin 2 mg tablet, 0 to 5 tabs daily. Dose depends on INR drop. DISCHARGE PLAN: The patient will be weightbearing as tolerated. She may shower on her third postoperative day. She will continue physical therapy and occupational therapy. DVT prophylaxis; she will continue her home doses of Plavix of 75 mg daily and aspirin 81 mg daily. She will also be on Coumadin for 30 days. She will be given 2 mg tabs, dosing is to include today, 10/07/17 6 mg, Wednesday 4 mg, Wednesday 4 mg, Wednesday 4 mg. Pain control with Percocet 5/325 one to two tabs by mouth every 4 to 6 hours as needed for pain, max of 10 tabs per day. Followup with Dr. Hidalgo in 10 to 14 days. ADITYA MCWILLIAMS [id number]/[facility] #: [id number] [facility]
== END 2017-10-07 13:05 | disposition home health service (06) | DRG 470 ==
LOC: AA 07:55 → SSU 12:06
PROVIDERS: ADMIT Orthopaedic Surgery Adult Reconstructive Orthopaedic Surgery; ATTEND Orthopaedic Surgery Adult Reconstructive Orthopaedic Surgery
PROC: 0SRC069 Replacement of Right Knee Joint with Oxidized Zirconium on Polyethylene Synthetic Substitute, Cemented, Open Approach (ICD-10-PCS; principal; 2017-10-05 09:00)
DX: M17.11 Unilateral primary osteoarthritis, right knee (principal); I45.10 Unspecified right bundle-branch block; I10 Essential (primary) hypertension; E11.9 Type 2 diabetes mellitus without complications; Z96.652 Presence of left artificial knee joint; M25.461 Effusion, right knee; E78.5 Hyperlipidemia, unspecified; M54.30 Sciatica, unspecified side; M10.9 Gout, unspecified; E55.9 Vitamin D deficiency, unspecified; G25.81 Restless legs syndrome; F41.9 Anxiety disorder, unspecified; I08.3 Combined rheumatic disorders of mitral, aortic and tricuspid valves; E66.01 Morbid (severe) obesity due to excess calories; K21.9 Gastro-esophageal reflux disease without esophagitis; M25.761 Osteophyte, right knee; M21.161 Varus deformity, not elsewhere classified, right knee; Z68.41 Body mass index [BMI] 40.0-44.9, adult; I69.354 Hemiplegia and hemiparesis following cerebral infarction affecting left non-dominant side; Z79.02 Long term (current) use of antithrombotics/antiplatelets; Z79.82 Long term (current) use of aspirin; Z83.6 Family history of other diseases of the respiratory system; Z79.84 Long term (current) use of oral hypoglycemic drugs; Z88.8 Allergy status to other drugs, medicaments and biological substances; Z83.3 Family history of diabetes mellitus; Z82.49 Family history of ischemic heart disease and other diseases of the circulatory system; Z79.01 Long term (current) use of anticoagulants
CPT/HCPCS: 36415; 80048; 82565; 84520; 85025; 85610; 88305; 88311; A9270-GY; C1776; G8978-GP-CI; G8978-GP-CJ; G8978-GP-CK; G8978-GP-CL; G8979-GP-CI; G8980-GP-CI; G8987-GO-CJ; G8988-GO-CJ; G8989-GO-CJ; J0690; J1650; J1885; J2250; J2400; J2405; J2704; J2795; J3010